=== PATIENT | female | born 1965 | race Caucasian/White ===

== ENCOUNTER 2021-01-25 13:56 | Emergency (ER) | payer OTHER, SELFPAY ==
--- NOTE | ~2021-01-25 | XR_ITS ---
EXAMINATION: XR shoulder LT min 2V DATE: 01/25/2021 14:39 INDICATION: Left shoulder pain. TECHNIQUE: 4 views of left shoulder were obtained. COMPARISON: None. FINDINGS: There is a comminuted fracture involving middle third of left clavicle. The main distal fra cture fragment demonstrates 27 degrees inferior angulation and 2 shaft widths inferior displacement. Coracoclavicular interval is normal. There is mild osteoarthritis of acromioclavicular joint and aaliyah ohumeral joint. IMPRESSION: 1. Comminuted fracture involving middle third of left clavicle. 2. Mild polyarticular osteoarthritis. Reviewed, dictated and finalized at location B.
[2021-01-25 14:21] VITALS: BP 141/106; PULSE 108; RESP 20; TEMP 36.1; O2SAT 100
--- NOTE | 2021-01-25 14:30 | ED.UPPEXIN ---
HPI - Extremity Injury (Upper) General Chief Complaint: Extremity Injury, Upper Stated Complaint: fall 1.5 weeks ago Time Seen by Provider: 01/25/21 14:30 Source: patient Mode of arrival: ambulatory Limitations: no limitations History of Present Illness HPI narrative: Patient is a 55-year-old female with a history of COPD who presents for evaluation of left clavicle pain following a fall. Patient states she tripped over a brick that was on a staircase, falling onto her side down 6 steps. Patient denies head trauma or loss of consciousness. Patient states injury happened several days ago and she has been afraid to come into the emergency department but due to the amount of pain in her left shoulder she wanted to see care. She reports a bump and bruising overlying the left collarbone. She denies shoulder pain, elbow pain or wrist pain. No numbness or tingling. No back pain or hip pain. Patient has been able to ambulate without difficulty. No vision changes, nausea or vomiting. Pain is dull, aching in nature, worse when she moves the left arm. Patient is right-hand dominant. Related Data Allergies Allergy/AdvReac Type Severity Reaction Status Date / Time No Known Allergies Allergy Unknown Unverified 12/05/16 13:19 Review of Systems Review of Systems: Narrative: CONSTITUTIONAL: Denies fever, chills, or sweats. EYES: Denies visual changes, redness, or discharge. ENT: Denies rhinorrhea, congestion, sore throat, or otalgia. CARDIOVASCULAR: Denies chest pain, palpitations, or edema. RESPIRATORY: Denies cough or dyspnea. GASTROINTESTINAL: Denies abdominal pain, nausea, vomiting, or diarrhea. GENITOURINARY: Denies dysuria or hematuria. SKIN: Denies rash or itching. MUSCULOSKELETAL: Denies back pain, reports left clavicle pain NEUROLOGIC: Denies headache, numbness, or weakness. PMFSH Social History Social History (Updated 01/25/21 @ 14:54 by Aslhey Orr MD) Smoking status: Current every day smoker Tobacco type: cigarettes Alcohol intake: former Substance use: current Substance use type: crack/cocaine and amphetamines Gender identity (if verbalized by the patient): Female Exam Narrative: Exam Narrative: Nursing note and vitals reviewed. CONSTITUTIONAL: The patient appears well-developed and well-nourished. No distress. HEAD: Normocephalic and atraumatic. EYES: 2+ PERRL, EOMI, normal conjunctiva, anicteric EARS: External ears clear bilaterally, no hemotympanum MOUTH: OP clear, no erythema, exudates NECK: midline trachea, supple, FROM. No midline cervical spinal tenderness. CARDIOVASCULAR: Tachycardic rate, regular rhythm, normal heart sounds and intact distal pulses. No murmurs, rubs, gallops. PULMONARY: Effort normal and breath sounds normal. No respiratory distress. The patient has no wheezes, rales, ronchi. No chest wall tenderness, crepitus or ecchymoses. ABDOMINAL: Soft. Nontender, nondistended. No palpable masses. Pelvis stable to anterior lateral compression. EXTREMITIES:: moving all extremities symmetrically. -RUE: No deformity. Normal ROM at shoulder, elbow, wrist, and hand. Sensation intact M/U/R. Pulse 2+. Radial pulse 2+. -LUE: No deformity. Normal ROM at elbow, wrist, and hand. Sensation intact M/U/R. Pulse 2+ radial pulse 2+. Intact sensation over the deltoid. Decreased ROM at left shoulder due to pain. No squaring off of the shoulder. -RLE: No deformity. Normal ROM at hip, knee, ankle. Sensation intact distally. -LLE: No deformity. Normal ROM at hip, knee, ankle. Sensation intact distally. NEUROLOGY: The patient is alert and oriented to person, place, and time. CN II-XII Course Vital Signs Vital signs: Vital Signs Temperature 36.1 C L 01/25/21 14:21 Pulse Rate 108 H 01/25/21 14:21 Respiratory Rate 20 01/25/21 14:21 Blood Pressure 141/106 H 01/25/21 14:21 Pulse Oximetry 100 01/25/21 14:21 Temperature 36.1 C L 01/25/21 14:21 Pulse Rate 108 H 01/25/21 14:21 Respiratory
[2021-01-25] MEDS: oxyCODONE/ACETAMINOPHEN (*CRX) 5-325 MG TABLET 1 TABLET PO (14:58)
[2021-01-25] MEDS: ONDANSETRON HCL ODT 4 MG TABLET PO (14:58)
== END 2021-01-25 15:16 | disposition home or self-care (01) ==
PROVIDERS: Emergency Provider Emergency Medicine
DX: S42.022A Displaced fracture of shaft of left clavicle, initial encounter for closed fracture (principal); F17.210 Nicotine dependence, cigarettes, uncomplicated; M19.012 Primary osteoarthritis, left shoulder; W10.9XXA Fall (on) (from) unspecified stairs and steps, initial encounter
CPT/HCPCS: 73030; 99284; A4565; A9270

== ENCOUNTER 2022-10-10 13:02 | Emergency (ER) | payer OTHER, SELFPAY ==
--- NOTE | ~2022-10-10 | XR_ITS ---
EXAMINATION: XR chest 2V DATE: 10/10/2022 13:34 INDICATION: Left chest pain. Shortness of breath. TECHNIQUE: Frontal and lateral views of the chest were obtained. COMPARISON: Chest 2 views 04/01/2008, CT abdomen 04/04/2008 FINDINGS: The chest demonstrates clear lungs without pneumonia, pleural effusion, or pneumothorax. Th e heart size is normal. There are prominent paracardial fat pads. There is an old healed fracture of left clavicle. IMPRESSION: 1. No acute cardiopulmonary disease. Reviewed, dictated and finalized at location A. [employer]
[2022-10-10 13:04] VITALS: BP 125/92; PULSE 103; RESP 18; TEMP 36.5; O2SAT 96
--- NOTE | 2022-10-10 13:04 | ECG_ITS ---
Measurements Intervals [place] Rate: 104 P: 38 [place]: 136 QRS: 20 QRSD: 88 T: 58 QT: 337 QTc: 445 Interpretive Statements SINUS TACHYCARDIA LOW VOLTAGE- LIMB LEADS BORDERLINE ECG NO PREVIOUS ECG AVAILABLE FOR COMPARISON Electronically Signed On 10-10-2022 14:51:24 [employer]US [employer]ING COORDINATOR by Sergio Loja D.O.
[2022-10-10 13:20] LABS: Basophils Absolute Auto 0.1 K/mm3 (0.0-0.1); Basophils Percent Auto 0.6 % (0.2-1.2); Eosinophils Absolute Auto 0.1 K/mm3 (0-0.3); Eosinophils Percent Auto 1.5 % (0-4.4); Hematocrit 40.5 % (37.0-47.0); Immature Granulocyte Absolute 0.03 K/mm3 (0.00-0.031); Immature Granulocyte Percent A 0.4 % (0-0.5); Lymphocytes Absolute Auto 2.24 K/mm3 (0.9-3.2); Lymphocytes Percent Auto 27.8 % (18.3-44.2); Mean Corpuscular HGB Conc 32.1 g/dl (32-36); Mean Corpuscular Hemoglobin 25.8 pg (26-34); Mean Corpuscular Volume 80.4 fl (80-100); Mean Platelet Volume 8.7 fl (7.4-10.4); Monocytes Absolute Auto 0.6 K/mm3 (0.1-0.6); Monocytes Percent Auto 7.9 % (2.6-8.5); Neutrophils Percent Auto 61.8 % (45.5-73.1); Platelet Count Result 375 k/mm3 (150-375); Red Blood Count 5.04 M/mm3 (4.2-5.4); White Blood Count 8.1 K/mm3 (4.5-10.0)
[2022-10-10 13:21] VITALS: O2SAT 98
[2022-10-10 13:22] VITALS: PULSE 102
[2022-10-10 13:23] VITALS: O2SAT 98
[2022-10-10 13:39] LABS: Alanine Aminotransferase 19 U/L (6-35); Albumin Level 3.8 g/dL (3.5-5.1); Alkaline Phosphatase 100 U/L (38-126); Anion Gap 6 mmol/L (8-16); Aspartate Amino Transferase 24 U/L (14-36); Bilirubin,Total 0.5 mg/dL (0.2-1.3); Blood Urea Nitrogen 18 mg/dL (7-17); Calcium 8.2 mg/dL (8.4-10.2); Carbon Dioxide 25 mmol/L (22-30); Chloride 106 mmol/L (98-107); Estimated Glomerular Filt Rate > 60; Glucose 105 mg/dL (65-110); Lipase 143 U/L (23-300); Potassium 4.6 mmol/L (3.4-5.0); Sodium 137 mmol/L (137-145)
[2022-10-10 13:42] LABS: INR 0.9
[2022-10-10 13:43] LABS: Partial Thromboplastin Time 27.9 SECONDS (22.3-36.8)
[2022-10-10 13:48] LABS: Troponin I < 0.012 ng/mL (0.000-0.034)
--- NOTE | 2022-10-10 14:16 | ED.GENADULT ---
HPI - General Adult General Chief complaint: Chest Pain Stated complaint: chest pain Time Seen by Provider: 10/10/22 13:33 History of Present Illness HPI narrative: 57-year-old female presenting to the emergency department for evaluation of some left-sided chest pain. Patient denies any prior history of coronary artery disease but does have a history of COPD. Patient states she has not felt well over the last few days and has had some increased diarrhea. Patient states this morning while she was at rest she had onset of left-sided chest pain that did radiate down her left arm. This started approximately 10 AM. Patient did call EMS for these symptoms and was treated with aspirin and nitro in route. Patient states that her pain was unchanged. Upon arrival to the emergency department patient states she does feel improved and states her pain is only a 2 out of 10. Patient denies any prior history of PE or DVT. Patient denies any recent long car rides or plane trips. Patient does have a prior history of ovarian cancer. Patient states that she is not on any hormone replacement. Patient states she is a current smoker. Related Data Allergies Allergy/AdvReac Type Severity Reaction Status Date / Time No Known Allergies Allergy Unknown Unverified 12/05/16 13:19 Review of Systems Review of Systems: CONSTITUTIONAL: Denies fever, chills, or sweats. EYES: Denies visual changes, redness, or discharge. ENT: Denies rhinorrhea, congestion, sore throat, or otalgia. CARDIOVASCULAR: See HPI RESPIRATORY: See HPI GASTROINTESTINAL: Denies abdominal pain, nausea, vomiting, or diarrhea. GENITOURINARY: Denies dysuria or hematuria. SKIN: Denies rash or itching. MUSCULOSKELETAL: Denies back pain, joint pain, or myalgia. NEUROLOGIC: Denies headache, numbness, or weakness. PMFSH Social History Social History (Updated 01/25/21 @ 14:54 by Ashley Orr MD) Smoking status: Current every day smoker Tobacco type: cigarettes Alcohol intake: former Substance use: current Substance use type: crack/cocaine and amphetamines Gender identity (if verbalized by the patient): Female Exam Narrative: APPEARANCE: Well appearing, no pain, no distress, well-nourished. HEAD: normocephalic, atraumatic. EYES: PERRLA/EOMI, conjunctivae clear. NOSE: Normal no drainage EARS:TMS clear with good light reflex. THROAT: Pharynx clear, no exudate. NECK: Supple. No adenopathy, no masses. RESPIRATORY: Airway patent, respirations nonlabored. Clear to auscultation bilaterally, no rales, rhonchi, wheezing. CARDIOVASCULAR: Regular rate and rhythm without murmurs rubs or gallops. ABDOMINAL: Soft, nontender, nondistended, normal bowel sounds MUSCULOSKELETAL: Moves all extremities. Strength/ROM intact, No edema, No calf tenderness. NEURO: Alert. Cranial nerves II through XII intact. Grossly intact SKIN: Warm, dry. Normal Color Course Course Emergency Course: Patient's initial EKG showed some mild tachycardia but no evidence of acute STEMI. Patient distal troponin was negative. Patient does have pleuritic left-sided chest pain with differential including ACS, PE, pneumonia or pneumothorax. X-ray showed no acute cardiopulmonary normality. Patient's EKG showed normal sinus rhythm. Patient's D-dimer was negative. Patient had negative serial troponins. Patient does feel improved at this time. Patient's heart score is low enough that she can be discharged to home with outpatient cardiac follow-up. Patient was comfortable with this plan. All question concerns were addressed. Vital Signs Vital signs: Vital Signs Temperature 97.7 F 10/10/22 13:04 Pulse Rate 103 H 10/10/22 13:04 Respiratory Rate 18 10/10/22 13:04 Blood Pressure 125/92 H 10/10/22 13:04 Pulse Oximetry 96 10/10/22 13:04 Oxygen Delivery Room Air 10/10/22 13:04 Temperature 97.7 F 10/10/22 13:04 Pulse Rate 91 10/10/22 16:28 Respiratory Rate 15 10/10/22 16:28 Blood Pressure
[2022-10-10 14:48] VITALS: BP 130/85; PULSE 94; RESP 18; O2SAT 98
[2022-10-10 15:03] LABS: Influenza A QL RT-PCR Negative (Negative); Influenza B QL RT-PCR Negative (Negative); RSV RNA, RT-PCR Negative (Negative); SARS-CoV-2 RNA PCR Negative
[2022-10-10 16:28] VITALS: BP 134/85; PULSE 91; RESP 15; O2SAT 98
[2022-10-10 16:59] LABS: Troponin I < 0.012 ng/mL (0.000-0.034)
== END 2022-10-10 17:30 | disposition home or self-care (01) ==
PROVIDERS: Emergency Provider Emergency Medicine
DX: R07.9 Chest pain, unspecified (principal); J44.9 Chronic obstructive pulmonary disease, unspecified; F17.210 Nicotine dependence, cigarettes, uncomplicated; F14.90 Cocaine use, unspecified, uncomplicated; F15.90 Other stimulant use, unspecified, uncomplicated; Z20.822 Contact with and (suspected) exposure to COVID-19
CPT/HCPCS: 36415; 71046; 80053; 83690; 84484; 85025; 85380; 85610; 85730; 87637; 93005; 99284

== ENCOUNTER 2022-12-29 21:16 | Emergency (ER) | payer OTHER, SELFPAY ==
--- NOTE | 2022-12-29 21:22 | PC.NURSE ---
Pt pulled back for triage, RN in process of checking pts vitals pts pulse oxygen 100% heart rate 98 pt removed blood pressure cuff and states I don't want to wait in the ER, I will go to urgent care tomorrow.
== END 2022-12-29 21:47 | disposition left against medical advice (07) ==
DX: Z53.21 Procedure and treatment not carried out due to patient leaving prior to being seen by health care provider (principal)
CPT/HCPCS: 99199

== ENCOUNTER 2023-01-02 12:14 | Observation (INO) | payer OTHER, SELFPAY ==
[2023-01-02] VITALS (21 sets, daily range): BP systolic 145–179; BP diastolic 70–98; PULSE 80–104; RESP 12–28; TEMP 36.3–36.7; O2SAT 94–100; BMI 37.3
--- NOTE | ~2023-01-02 | XR_ITS ---
Clinical Indication: Shortness of breath PA and lateral views of the chest: Comparison: 10/10/2022 Findings: The lungs are clear, without evidence of focal consolidation or pleural effusion. Cardiome diastinal silhouette is within normal limits. Bones and soft tissues are unremarkable. Impression: Normal chest. Reviewed, dictated and finalized at location . Impression: Normal chest.
--- NOTE | 2023-01-02 12:26 | ECG_ITS ---
Measurements Intervals [place] Rate: 88 P: 46 [place]: 171 QRS: 10 QRSD: 89 T: 47 QT: 362 QTc: 438 Interpretive Statements SINUS RHYTHM BASELINE ARTIFACT- I, III, AVL NORMAL ECG COMPARED TO ECG 10/10/2022 13:08:10 SINUS RHYTHM NOW PRESENT Electronically Signed On 01-02-2023 12:55:54 CDT by Sergio Loja D.O.
--- NOTE | 2023-01-02 12:50 | ED.SOB ---
HPI - SOB/Dyspnea General Chief Complaint: Shortness of Breath/Dyspnea Stated Complaint: sob/cough Time Seen by Provider: 01/02/23 12:21 Source: RN notes reviewed History of Present Illness HPI Narrative: Patient presents emergency department from home via EMS for shortness of breath. Patient states she has a history of COPD has been feeling more short of breath for the past 5 days. States she had a cough this been nonproductive states he is also had diffuse wheezing. Patient states she does still smoke cigarettes. She denies any fevers or chills chest pain abdominal pain nausea vomiting or any other symptoms. States she has been using her medications at home with minimal relief Related Data Home Medications Medication Instructions Recorded Confirmed albuterol sulfate 90 mcg/actuation inhalation 01/02/23 aerosol inhaler cholecalciferol (vitamin D3) 25 25 mcg PO DAILY 01/02/23 mcg (1,000 unit) tablet cholecalciferol (vitamin D3) 50 100 mcg PO DAILY 01/02/23 mcg (2,000 unit) tablet famotidine 20 mg tablet mg 01/02/23 hydroxyzine pamoate 50 mg capsule mg 01/02/23 ondansetron 4 mg disintegrating mg 01/02/23 tablet prednisone 20 mg tablet mg 01/02/23 tiotropium bromide 18 mcg capsule inhalation 01/02/23 with inhalation device (Spiriva with HandiHaler) tizanidine 4 mg tablet mg 01/02/23 Allergies Allergy/AdvReac Type Severity Reaction Status Date / Time No Known Allergies Allergy Unknown Verified 01/02/23 12:50 Review of Systems Review of Systems: Gen.: Denies fevers or chills ENT: Denies congestion Respiratory: See HPI CV: Denies chest pain or palpitations GI: Denies abdominal pain nausea, emesis or diarrhea Musculoskeletal: Denies back pain or muscle pain Neuro: Denies numbness, tingling, weakness or focal weakness Skin: Denies rash Except as documented, all other systems reviewed and negative [facility] Past Medical History Medical History (Updated 01/02/23 @ 14:40 by Taras Avila DO) COPD (chronic obstructive pulmonary disease) Social History Social History Smoking status: Current every day smoker Tobacco type: cigarettes Alcohol intake: former Substance use: current Substance use type: crack/cocaine and amphetamines Gender identity (if verbalized by the patient): Female Exam Narrative: APPEARANCE: No acute distress, nontoxic, resting in bed EYES: EOMI HEENT: Normocephalic, atraumatic, OMM erythema exudate posterior pharynx RESPIRATORY: No respiratory distress wheezing throughout the bilateral lung robles with decreased breath sounds in the bases no rhonchi CARDIOVASCULAR: Regular rate and rhythm without murmurs rubs or gallops. ABDOMINAL: Soft, nontender, nondistended, no rebound or guarding MUSCULOSKELETAl: Moves all extremities. No clubbing, cyanosis or edema. NEURO: Awake and alert. Following commands, speech normal, no focal deficits SKIN:: Warm, dry. No rashes lesions or abrasions PSYCHIATRIC: Normal affect/mood, Course Course Emergency Course: Patient given breathing treatments in the emergency department repeat lung exam shows diffuse wheezing throughout the bilateral lung robles with decreased breath sounds in bases will admit for IV steroids and breathing treatments Discussed with NI Norris for Dr. Daniel for hospitalist service agrees with admission Discussed with patient and family results of workup and diagnosis. Discussed need for admission. Patient and family understand and agree to current treatment plan Vital Signs Vital signs: Vital Signs Temperature 98.1 F 01/02/23 12:17 Pulse Rate 90 01/02/23 12:17 Respiratory Rate 24 H 01/02/23 12:17 Blood Pressure 147/83 H 01/02/23 12:17 Pulse Oximetry 96 01/02/23 12:17 Oxygen Delivery Room Air 01/02/23 12:17 Temperature 98.1 F 01/02/23 12:17 Pulse Rate 91 01/02/23 14:21 Respiratory Rate 17 01/02/23 14:21 Bloo
[2023-01-02 13:16] LABS: Basophils Percent Auto 0.4 % (0.2-1.2); Eosinophils Absolute Auto 0.1 K/mm3 (0-0.3); Eosinophils Percent Auto 1.3 % (0-4.4); Hematocrit 35.2 % (37.0-47.0); Immature Granulocyte Absolute 0.02 K/mm3 (0.00-0.031); Immature Granulocyte Percent A 0.3 % (0-0.5); Lymphocytes Absolute Auto 1.37 K/mm3 (0.9-3.2); Lymphocytes Percent Auto 18.3 % (18.3-44.2); Mean Corpuscular HGB Conc 31.3 g/dl (32-36); Mean Corpuscular Hemoglobin 25.6 pg (26-34); Mean Corpuscular Volume 81.9 fl (80-100); Mean Platelet Volume 8.2 fl (7.4-10.4); Monocytes Absolute Auto 0.5 K/mm3 (0.1-0.6); Monocytes Percent Auto 6.4 % (2.6-8.5); Neutrophils Absolute Auto 5.5 K/mm3 (1.3-6.7); Neutrophils Percent Auto 73.3 % (45.5-73.1); Platelet Count Result 382 k/mm3 (150-375); Red Cell Distribution Width 14.3 % (11.5-14.5); White Blood Count 7.5 K/mm3 (4.5-10.0)
[2023-01-02] MEDS: methylPREDNISolone SOD SUCC 125 MG VIAL IV PUSH (13:16)
[2023-01-02] MEDS: IPRATROPIUM BR 0.02% INH SOLN 0.5 MG/2.5 ML VIAL INHALATION ×3 (13:23→20:27)
[2023-01-02] MEDS: ALBUTEROL SULFATE NEB 2.5 MG/3 ML INH INHALATION ×2 (13:23→14:05)
[2023-01-02 13:29] LABS: Alanine Aminotransferase 19 U/L (6-35); Albumin Level 3.9 g/dL (3.5-5.1); Alkaline Phosphatase 96 U/L (38-126); Anion Gap 9 mmol/L (8-16); Aspartate Amino Transferase 20 U/L (14-36); Bilirubin,Total 0.3 mg/dL (0.2-1.3); Blood Urea Nitrogen 14 mg/dL (7-17); Calcium 8.8 mg/dL (8.4-10.2); Carbon Dioxide 26 mmol/L (22-30); Chloride 99 mmol/L (98-107); Estimated CRCL calculation 75 ml/min; Estimated Glomerular Filt Rate > 60; Glucose 114 mg/dL (65-110); Potassium 3.8 mmol/L (3.4-5.0); Sodium 134 mmol/L (137-145)
[2023-01-02 14:05] LABS: Influenza A QL RT-PCR Negative (Negative); Influenza B QL RT-PCR Negative (Negative); RSV RNA, RT-PCR Negative (Negative); SARS-CoV-2 RNA PCR Negative
[2023-01-02] MEDS: NICOTINE (*PBKC) 21 MG PATCH 1 PATCH TRANSDERM (16:58)
--- NOTE | 2023-01-02 18:00 | PM.IMHP ---
H&P: HPI History of Present Illness Date/Time: 01/02/23 18:00 Chief Complaint: Shortness of breath. Narrative: This is a 57-year-old female smoker with COPD who presented to the emergency department via EMS from [facility] for evaluation of shortness of breath. Patient provides the following history. She has chronic dyspnea at baseline, even when up and about in her apartment. Over the last couple of weeks however she has had progressive dyspnea on lesser and lesser exertion and endorses significant wheezing. At the onset of her symptoms she had a cough productive of thick green sputum but that has dried up when she started taking prednisone and a cough suppressant. She endorses chills but denies fever and sweats. She has had some sinus congestion and sore throat. She had COVID several months ago and has no known recent contacts. She has some mild chest tightness when her shortness of breath is especially bad but that improved with albuterol. She has not had exertional chest pain or pleuritic pain. Vital signs were stable on arrival to ED. she was negative for influenza, RSV, and COVID. Chest x-ray showed normal chest. She was given a dose of Solu-Medrol and a nebulizer treatment with some improvement though due to ongoing shortness of breath and wheezing she is being admitted for further treatment for a COPD exacerbation. Review of Systems Review of Systems: Twelve systems were reviewed and are negative except for as per HPI. [facility] Past Medical History Medical History (Updated 01/04/23 @ 13:57 by Myrna Alberts PA-C) Anxiety Bipolar disorder Chronic obstructive pulmonary disease Depression Diverticulitis Fibromyalgia Spinal stenosis Tobacco dependence Surgical History Surgical History (Updated 01/04/23 @ 13:57 by Myrna Alberts PA-C) History of ankle surgery History of partial hysterectomy Family History Family History Father Acute myocardial infarction Congestive heart failure Hypertension Prostate carcinoma Sibling Chronic obstructive pulmonary disease Cerebrovascular accident Social History Social History (Updated 01/04/23 @ 13:57 by Myrna Alberts PA-C) Social History: Surrogate medical decision maker: Charito Fish, daughter. Code status: Full code. Smoking status: Current some day smoker Tobacco type: cigarettes Alcohol intake: never Substance use: never Substance use type: crack/cocaine and amphetamines Lack of Transportation: No Lack of Food: Never True Current Housing: I Have Housing Concerned About Future Housing: No Difficulty Paying Gas/Electric Bills: No Difficulty Paying for Meds: No Currently Unemployed: No Education: High School Diploma/GED Difficulty w/ Childcare or Family Care: No Spiritual care concerns: No Meds Home Medications and Allergies Home Medications Medication Instructions Recorded Confirmed Type albuterol sulfate 90 mcg/actuation 2 puff inhalation Q4H PRN 01/02/23 01/02/23 History aerosol inhaler Shortness Of Breath Or Wheezing cholecalciferol (vitamin D3) 25 25 mcg PO DAILY 01/02/23 01/02/23 History mcg (1,000 unit) tablet cholecalciferol (vitamin D3) 50 100 mcg PO DAILY 01/02/23 01/02/23 History mcg (2,000 unit) tablet famotidine 20 mg tablet 20 mg PO BID 01/02/23 01/02/23 History guaifenesin 100 mg/5 mL oral 200 mg PO Q4H PRN Cough 01/02/23 01/02/23 History liquid (Robafen) ondansetron 4 mg disintegrating 4 mg PO Q6H PRN Nausea And Vomiting 01/02/23 01/02/23 History tablet tiotropium bromide 18 mcg capsule 1 cap inhalation DAILY 01/02/23 01/02/23 History with inhalation device (Spiriva with HandiHaler) tizanidine 4 mg tablet 4 mg PO Q8H PRN Muscle Spasm 01/02/23 01/02/23 History budesonide-formoterol HFA 160 1 puff inhalation DAILY 01/03/23 01/03/23 History mcg-4.5 mcg/actuation aerosol inhaler (Symbicort) dul
--- NOTE | 2023-01-02 19:10 | PC.NURSE ---
REPORT TO WARREN LANDAVERDE. CARE TRANSFERRED. PT STILL AWAITING AN ADMISSION BED.
--- NOTE | 2023-01-02 19:56 | ADMGEN ---
This patient, Nohelia Cyr, was admitted to Medical Room 254-01. Patient/family oriented to hospital policies and general routines including ID bracelet, bed and alarms, visiting hours, pain management, procedures, bathroom and other care routines, personal items, smoking policy, room service/diet, and visiting hours. Information on how to activate the Rapid Response Team has been discussed. Patient/Family are encouraged to report perceived risks to care and to ask questions if they do not understand what they are told or what they should do.
[2023-01-02] MEDS: LEVALBUTEROL NEB 1.25 MG/3 ML 0.63 MG INHALATION ×2 (20:27→20:31)
[2023-01-02] MEDS: methylPREDNISolone SOD SUCC 125 MG VIAL 60 MG IV PUSH (21:28)
[2023-01-02] MEDS: AZITHROMYCIN 250 MG TABLET 500 MG PO (23:58)
[2023-01-03] VITALS (11 sets, daily range): BP systolic 138–151; BP diastolic 78–96; PULSE 95–112; RESP 18–22; TEMP 36.4–36.9; O2SAT 94–97
[2023-01-03] MEDS: LEVALBUTEROL NEB 1.25 MG/3 ML 0.63 MG INHALATION ×4 (03:05→20:33)
[2023-01-03] MEDS: IPRATROPIUM BR 0.02% INH SOLN 0.5 MG/2.5 ML VIAL INHALATION (03:06)
[2023-01-03] MEDS: TIZANIDINE HCL 4 MG TABLET PO ×3 (04:00→20:12)
[2023-01-03 06:02] LABS: Basophils Percent Auto 0.1 % (0.2-1.2); Hemoglobin 11.5 g/dL (12.0-15.0); Immature Granulocyte Absolute 0.08 K/mm3 (0.00-0.031); Immature Granulocyte Percent A 0.8 % (0-0.5); Lymphocytes Absolute Auto 0.48 K/mm3 (0.9-3.2); Lymphocytes Percent Auto 4.9 % (18.3-44.2); Mean Corpuscular HGB Conc 31.1 g/dl (32-36); Mean Corpuscular Hemoglobin 25.6 pg (26-34); Mean Corpuscular Volume 82.4 fl (80-100); Mean Platelet Volume 8.2 fl (7.4-10.4); Monocytes Absolute Auto 0.1 K/mm3 (0.1-0.6); Monocytes Percent Auto 1.2 % (2.6-8.5); Neutrophils Absolute Auto 9.1 K/mm3 (1.3-6.7); Platelet Count Result 429 k/mm3 (150-375); Red Blood Count 4.49 M/mm3 (4.2-5.4); Red Cell Distribution Width 14.1 % (11.5-14.5); White Blood Count 9.8 K/mm3 (4.5-10.0)
[2023-01-03 06:14] LABS: Alanine Aminotransferase 19 U/L (6-35); Albumin Level 4.1 g/dL (3.5-5.1); Alkaline Phosphatase 101 U/L (38-126); Anion Gap 4 mmol/L (8-16); Aspartate Amino Transferase 21 U/L (14-36); Bilirubin,Total 0.4 mg/dL (0.2-1.3); Blood Urea Nitrogen 15 mg/dL (7-17); Calcium 9.2 mg/dL (8.4-10.2); Carbon Dioxide 29 mmol/L (22-30); Chloride 101 mmol/L (98-107); Estimated CRCL calculation 98 ml/min; Estimated Glomerular Filt Rate > 60; Glucose 144 mg/dL (65-110); Magnesium 2.3 mg/dL (1.6-2.3); Potassium 4.4 mmol/L (3.4-5.0); Sodium 134 mmol/L (137-145)
[2023-01-03] MEDS: methylPREDNISolone SOD SUCC 125 MG VIAL 60 MG IV PUSH (06:24)
[2023-01-03] MEDS: FLUTICASONE/SALMETEROL 115-21 MCG INHALER 1 PUFF 2 PUFF INHALATION ×2 (07:20→20:34)
[2023-01-03] MEDS: ACETAMINOPHEN 325 MG TABLET 650 MG PO ×2 (07:47)
[2023-01-03] MEDS: CHOLECALCIFEROL 1,000 UNITS TABLET 2000 UNITS PO (07:48)
[2023-01-03] MEDS: guaiFENesin 12 HR 600 MG TABCR PO ×2 (07:50→20:12)
[2023-01-03] MEDS: AZITHROMYCIN 250 MG TABLET PO (07:50)
[2023-01-03] MEDS: FAMOTIDINE 20 MG TABLET PO ×2 (07:50→17:04)
--- NOTE | 2023-01-03 12:30 | PM.IMPN ---
Progress Note: A&P Assessment and Plan (1) Acute exacerbation of chronic obstructive pulmonary disease: Code(s): J44.1 - Chronic obstructive pulmonary disease with (acute) exacerbation Status: Acute Assessment and Plan: Presented with complaints of progressive shortness of breath Chest xray shows normal chest WBCs stable at 7.8 Continue home advair, and PRN Xopenex Continue azithromycin for now Decrease steroids to 40mg PO daily Sputum culture (2) Tobacco dependence: Code(s): F17.200 - Nicotine dependence, unspecified, uncomplicated Status: Acute Assessment and Plan: Smoking cessation is encouraged and was discussed. Nicotine patch ordered per patient request Continue with smoking cessation counselling Time Spent With Patient Time: 48 minutes Time with patient: Greater than 35 minutes Subjective Date/time seen: 01/03/23 1230 Interval history: 01/03/231229 Patient was sitting up in bed eating chicken tenders and ran stressing. Patient stated that she was feeling much better today however she was still very weak. She also stated that she has a cough with wheezes. She feels congested especially in her head and ears and thinks that her sinuses are pretty congested. She denies any current nausea, vomiting, diarrhea or constipation. 01/02/23? 18:00 This is a 57-year-old female smoker with COPD who presented to the emergency department via EMS from [facility] for evaluation of shortness of breath. Patient provides the following history. She has chronic dyspnea at baseline, even when up and about in her apartment. Over the last couple of weeks however she has had progressive dyspnea on lesser and lesser exertion and endorses significant wheezing. At the onset of her symptoms she had a cough productive of thick green sputum but that has dried up when she started taking prednisone and a cough suppressant. She endorses chills but denies fever and sweats. She has had some sinus congestion and sore throat. She had COVID several months ago and has no known recent contacts. She has some mild chest tightness when her shortness of breath is especially bad but that improved with albuterol. She has not had exertional chest pain or pleuritic pain. Vital signs were stable on arrival to ED. she was negative for influenza, RSV, and COVID. Chest x-ray showed normal chest. She was given a dose of Solu-Medrol and a nebulizer treatment with some improvement though due to ongoing shortness of breath and wheezing she is being admitted for further treatment for a COPD exacerbation. Review of Systems Review of Systems: All systems reviewed & are unremarkable except as noted in HPI and below Exam Narrative: General: well-nourished, well-appearing 57-year-old female, sitting up in bed, comfortable, NARD Neuro: awake, alert and oriented x4, speech clear, no focal neuro deficits noted HEENMT: normocephalic, atraumatic, EOMI, sclerae anicteric, moist oral mucosa Respiratory: Clear to auscultation bilaterally without crackles, rhonchi or wheezes, nonlabored breathing Cardio: regular rate, regular rhythm with S1-S2 Abdomen: nondistended, normoactive bowel sounds, soft, nontender to palpation Extremities: no edema, erythema, or tenderness to palpation, DP pulses 2+ bilaterally Skin: no rashes or lesions, warm and dry Psych: appropriate mood and affect, judgment and insight intact Objective Data Vital Signs Vital Signs: Vital Signs - 24 hr 01/02/23 12:17 01/02/23 13:24 01/02/23 14:05 Temperature 98.1 F Pulse Rate 90 85 87 Respiratory Rate 24 H 13 14 Blood Pressure 147/83 H Pulse Oximetry 96 Oxygen Delivery Room Air 01/02/23 14:21 01/02/23 12:26 01/02/23 12:46 Temperature Pulse Rate 91 91 91 Respiratory Rate 17 21 H 13 Blood Pressure 147/83 H 146/81 H Pulse Oximetry 97 95 Oxygen Delivery 01/02/23 13:01 01/02/23 13:35 01/02/23 14:02 Temp
[2023-01-03] MEDS: guaiFENesin 200 MG/10 ML UDC PO ×2 (12:52→22:01)
[2023-01-03] MEDS: predniSONE 20 MG TABLET 40 MG PO (12:53)
[2023-01-03] MEDS: NICOTINE (*PBKC) 21 MG PATCH 1 PATCH TRANSDERM (13:13)
[2023-01-03] MEDS: LORATADINE/PSEUDOEPHEDRINE (*CRX) 10/240 MG TABLET ER 24 HR 1 TAB PO (17:04)
[2023-01-04] VITALS (7 sets, daily range): BP systolic 126–151; BP diastolic 81–94; PULSE 91–107; RESP 18–20; TEMP 36.4–37.1; O2SAT 97–100
[2023-01-04 05:08] LABS: Basophils Percent Auto 0.1 % (0.2-1.2); Hematocrit 35.8 % (37.0-47.0); Hemoglobin 11.1 g/dL (12.0-15.0); Immature Granulocyte Absolute 0.15 K/mm3 (0.00-0.031); Lymphocytes Absolute Auto 1.02 K/mm3 (0.9-3.2); Lymphocytes Percent Auto 6.8 % (18.3-44.2); Mean Corpuscular Hemoglobin 25.5 pg (26-34); Mean Corpuscular Volume 82.1 fl (80-100); Mean Platelet Volume 8.3 fl (7.4-10.4); Monocytes Absolute Auto 0.9 K/mm3 (0.1-0.6); Monocytes Percent Auto 5.8 % (2.6-8.5); Neutrophils Absolute Auto 12.9 K/mm3 (1.3-6.7); Neutrophils Percent Auto 86.3 % (45.5-73.1); Platelet Count Result 399 k/mm3 (150-375); Red Blood Count 4.36 M/mm3 (4.2-5.4); Red Cell Distribution Width 14.1 % (11.5-14.5)
[2023-01-04 05:14] LABS: Alanine Aminotransferase 17 U/L (6-35); Albumin Level 3.8 g/dL (3.5-5.1); Alkaline Phosphatase 80 U/L (38-126); Anion Gap 5 mmol/L (8-16); Aspartate Amino Transferase 17 U/L (14-36); Bilirubin,Total 0.3 mg/dL (0.2-1.3); Blood Urea Nitrogen 19 mg/dL (7-17); Calcium 8.6 mg/dL (8.4-10.2); Carbon Dioxide 28 mmol/L (22-30); Chloride 103 mmol/L (98-107); Estimated CRCL calculation 85 ml/min; Estimated Glomerular Filt Rate > 60; Glucose 115 mg/dL (65-110); Magnesium 2.5 mg/dL (1.6-2.3); Potassium 4.5 mmol/L (3.4-5.0); Sodium 136 mmol/L (137-145)
[2023-01-04] MEDS: FLUTICASONE/SALMETEROL 115-21 MCG INHALER 1 PUFF 2 PUFF INHALATION (07:46)
[2023-01-04] MEDS: LEVALBUTEROL NEB 1.25 MG/3 ML 0.63 MG INHALATION ×2 (07:46→13:44)
[2023-01-04] MEDS: predniSONE 20 MG TABLET 40 MG PO (08:17)
[2023-01-04] MEDS: CHOLECALCIFEROL 1,000 UNITS TABLET 2000 UNITS PO (08:18)
[2023-01-04] MEDS: DULoxetine HCL 60 MG CAPSULE.DR PO (08:18)
[2023-01-04] MEDS: AZITHROMYCIN 250 MG TABLET PO (08:18)
[2023-01-04] MEDS: FOLIC ACID 1 MG TABLET PO (08:19)
[2023-01-04] MEDS: guaiFENesin 12 HR 600 MG TABCR PO (08:19)
[2023-01-04] MEDS: ACETAMINOPHEN 325 MG TABLET 650 MG PO (08:20)
[2023-01-04] MEDS: FAMOTIDINE 20 MG TABLET PO (08:23)
[2023-01-04] MEDS: LORATADINE/PSEUDOEPHEDRINE (*CRX) 10/240 MG TABLET ER 24 HR 1 TAB PO (08:23)
[2023-01-04] MEDS: NICOTINE (*PBKC) 21 MG PATCH 1 PATCH TRANSDERM (14:13)
[2023-01-04] MEDS: guaiFENesin 200 MG/10 ML UDC PO (14:14)
--- NOTE | 2023-01-04 14:14 | PM.DS ---
DS: Admitting Diagnosis Discharge Date 01/04/2023 Admitting Diagnosis COPD exacerbation DS: Discharge Diagnosis Discharge Diagnosis (1) Acute exacerbation of chronic obstructive pulmonary disease: Code(s): J44.1 - Chronic obstructive pulmonary disease with (acute) exacerbation Status: Acute Assessment and Plan: Likely precipitated by viral URI. patient received scheduled bronchodilators and IV Solu-Medrol during admission. She was started on azithromycin given sputum changes. She had no oxygen requirement. She was able to transition to p.o. prednisone which she will continue as an outpatient to complete 5 days. She will also continue azithromycin as an outpatient to complete a 5 day course. Overall had symptomatic improvement. Continue maintenance inhalers. patient was referred to outpatient pulmonology for continued treatment of COPD (2) Tobacco dependence: Code(s): F17.200 - Nicotine dependence, unspecified, uncomplicated Status: Acute Assessment and Plan: nicotine patch provided during admission. Patient was educated on smoking cessation. DS: Summary Hospital Course Hospital Course: date of admission: 01/02/2023 date of discharge: 01/04/2023 Nohelia Cyr is a 57-year-old female with a history of bipolar disorder, anxiety, COPD, fibromyalgia, and tobacco dependence who presented to the emergency department on 01/02/2023 with complaints of worsened shortness of breath ongoing for 5 days, cough, and wheezing. On presentation to the ED, she was mildly tachypneic with additional vital signs stable, laboratory workup unremarkable, COVID influenza negative, and CXR no acute findings. She was admitted to the hospitalist service for further evaluation and management. please see above for further details. She had symptomatic improvement following scheduled bronchodilators, steroids, and antibiotics. Wheezing improved. Patient had no oxygen requirement. She will continue with p.o. prednisone as an outpatient to complete 5 days. She has been referred to pulmonology and can follow-up as an outpatient. Overall patient feeling improved, nearly back to baseline and felt comfortable with plans for discharge back to her assisted living facility. Patient was educated on smoking cessation. She was discharged in hemodynamically stable condition on 01/04/2023. Time Spent with Patient Time attestation: Total time spent providing and/or coordinating discharge services: 40 minutes Exam Narrative: General: will appearing 57-year-old female, sitting up in bed, comfortable, NARD Neuro: awake, alert and oriented x4, speech clear, no focal neuro deficits noted HEENMT: normocephalic, atraumatic, EOMI, sclerae anicteric, moist oral mucosa Respiratory: clear to auscultation bilaterally, nonlabored breathing Cardio: regular rate, regular rhythm with S1-S2 Abdomen: nondistended, normoactive bowel sounds, soft, nontender to palpation Extremities: no edema, erythema, or tenderness to palpation Skin: no rashes or lesions, warm and dry Psych: appropriate mood and affect, judgment and insight intact DS: Data Data Completed and Pending Labs on day of discharge: Labs from last 24 hours 01/04/23 01/04/23 04:45 04:45 WBC 15.0 H RBC 4.36 Hgb 11.1 L Hct 35.8 L MCV 82.1 MCH 25.5 L MCHC 31.0 L RDW 14.1 Plt Count 399 H MPV 8.3 Immature Gran % (Auto) 1.0 H Neut % (Auto) 86.3 H Lymph % (Auto) 6.8 L Taney % (Auto) 5.8 Eos % (Auto) 0.0 Baso % (Auto) 0.1 L Lymph # (Auto) 1.02 Taney # (Auto) 0.9 H Eos # (Auto) 0.0 Baso # (Auto) 0.0 Abs Immat Gran (auto) 0.15 H Absolute Neuts (auto) 12.9 H Absolute Nucleated RBC 0.0 Nucleated RBC % 0.0 Sodium 136 L Potassium 4.5 Chloride 103 Carbon Dioxide 28 Anion Gap 5 L BUN 19 H Creatinine 0.70 Estim Creat Clear Calc 85 Estimated GFR > 60 Glucose 115 H Calcium 8.6 Magnesium 2
== END 2023-01-04 16:40 ==
LOC: ANHED 14:40 → ANH2MED 20:58 → ANH3MEDSUR 01-05 13:59
PROVIDERS: Nurse Practitioner; Admitting Provider Internal Medicine; Emergency Provider Emergency Medicine; Visit Provider Physician Assistant
DX: J44.1 Chronic obstructive pulmonary disease with (acute) exacerbation (principal); F17.210 Nicotine dependence, cigarettes, uncomplicated; F14.90 Cocaine use, unspecified, uncomplicated; F15.90 Other stimulant use, unspecified, uncomplicated; Z20.822 Contact with and (suspected) exposure to COVID-19; F41.9 Anxiety disorder, unspecified; F31.9 Bipolar disorder, unspecified; M79.7 Fibromyalgia; M48.00 Spinal stenosis, site unspecified; Z79.51 Long term (current) use of inhaled steroids; Z79.52 Long term (current) use of systemic steroids; Z79.899 Other long term (current) drug therapy; Z83.6 Family history of other diseases of the respiratory system
CPT/HCPCS: 36415; 71046; 80053; 83735; 85025; 87637; 93005; 94640; 96374; 96376; 97165; 99285; A9270; G0378; G0379; J2930; J7512

== ENCOUNTER 2023-05-27 12:24 | Emergency (ER) | payer OTHER, SELFPAY ==
[2023-05-27] VITALS (24 sets, daily range): BP systolic 100–142; BP diastolic 79–98; PULSE 79–92; RESP 8–24; TEMP 36.9; O2SAT 92–100
--- NOTE | ~2023-05-27 | XR_ITS ---
EXAMINATION: XR chest 2V DATE: 05/27/2023 13:24 INDICATION: Right chest pain. Shortness of breath. TECHNIQUE: Frontal and lateral views of the chest were obtained. COMPARISON: Chest 2 views 01/02/2023 FINDINGS: There is no pneumonia, pleural effusion, or pneumothorax. The heart size is normal. There a re prominent paracardial fat pads. IMPRESSION: 1. No acute cardiopulmonary disease. Reviewed, dictated and finalized at location A.
--- NOTE | 2023-05-27 12:46 | ECG_ITS ---
Measurements Intervals [place] Rate: 84 P: 49 NM: 184 QRS: 11 QRSD: 93 T: 42 QT: 368 QTc: 436 Interpretive Statements SINUS RHYTHM LOW QRS VOLTAGE IN PRECORDIAL LEADS [QRS DEFLECTION < 1.0 mV IN CHEST LEADS] OTHERWISE UNREMARKABLE OR ECHOCARDIOGRAM COMPARED TO ECG 01/02/2023 12:31:32 NO SIGNIFICANT CHANGES Electronically Signed On 05-28-2023 7:08:09 CDT by Sudeep Porras M.D.
[2023-05-27 13:04] LABS: Basophils Percent Auto 0.6 % (0.2-1.2); Eosinophils Absolute Auto 0.2 K/mm3 (0-0.3); Eosinophils Percent Auto 3.1 % (0-4.4); Hematocrit 35.7 % (37.0-47.0); Immature Granulocyte Absolute 0.02 K/mm3 (0.00-0.031); Immature Granulocyte Percent A 0.3 % (0-0.5); Lymphocytes Absolute Auto 1.96 K/mm3 (0.9-3.2); Lymphocytes Percent Auto 28.8 % (18.3-44.2); Mean Corpuscular HGB Conc 30.8 g/dl (32-36); Mean Corpuscular Hemoglobin 25.4 pg (26-34); Mean Corpuscular Volume 82.4 fl (80-100); Mean Platelet Volume 8.9 fl (7.4-10.4); Monocytes Absolute Auto 0.7 K/mm3 (0.1-0.6); Monocytes Percent Auto 9.7 % (2.6-8.5); Neutrophils Absolute Auto 3.9 K/mm3 (1.3-6.7); Neutrophils Percent Auto 57.5 % (45.5-73.1); Platelet Count Result 330 k/mm3 (150-375); Red Blood Count 4.33 M/mm3 (4.2-5.4); Red Cell Distribution Width 13.3 % (11.5-14.5); White Blood Count 6.8 K/mm3 (4.5-10.0)
[2023-05-27 13:17] LABS: Alanine Aminotransferase 18 U/L (6-35); Albumin Level 3.9 g/dL (3.5-5.1); Alkaline Phosphatase 104 U/L (38-126); Anion Gap 6 mmol/L (8-16); Aspartate Amino Transferase 22 U/L (14-36); Bilirubin,Total 0.2 mg/dL (0.2-1.3); Blood Urea Nitrogen 13 mg/dL (7-17); Calcium 8.5 mg/dL (8.4-10.2); Carbon Dioxide 27 mmol/L (22-30); Chloride 101 mmol/L (98-107); Estimated CRCL calculation 62 ml/min; Estimated Glomerular Filt Rate > 60; Glucose 92 mg/dL (65-110); Potassium 4.4 mmol/L (3.4-5.0); Sodium 134 mmol/L (137-145)
--- NOTE | 2023-05-27 13:24 | ED.GENADULT ---
HPI - General Adult General Chief complaint: Shortness of Breath/Dyspnea Stated complaint: dyspnea, headache Time Seen by Provider: 05/27/23 13:00 History of Present Illness HPI narrative: 58-year-old female with history of COPD presented to the emergency department for evaluation of worsening shortness of breath. Patient states she has had COPD for a long time and does still continue to smoke. Patient does not follow-up with a franchise manager but is treated by the hospitalist at her assisted living. Patient reports increasing shortness of breath over the last few days. Patient does not have an O2 requirement at home. Related Data Home Medications Medication Instructions Recorded Confirmed albuterol sulfate 90 mcg/actuation 2 puff inhalation Q4H PRN 01/02/23 01/02/23 aerosol inhaler Shortness Of Breath Or Wheezing cholecalciferol (vitamin D3) 25 25 mcg PO DAILY 01/02/23 01/02/23 mcg (1,000 unit) tablet cholecalciferol (vitamin D3) 50 100 mcg PO DAILY 01/02/23 01/02/23 mcg (2,000 unit) tablet famotidine 20 mg tablet 20 mg PO BID 01/02/23 01/02/23 guaifenesin 100 mg/5 mL oral 200 mg PO Q4H PRN Cough 01/02/23 01/02/23 liquid (Robafen) ondansetron 4 mg disintegrating 4 mg PO Q6H PRN Nausea And Vomiting 01/02/23 01/02/23 tablet tiotropium bromide 18 mcg capsule 1 cap inhalation DAILY 01/02/23 01/02/23 with inhalation device (Spiriva with HandiHaler) tizanidine 4 mg tablet 4 mg PO Q8H PRN Muscle Spasm 01/02/23 01/02/23 budesonide-formoterol HFA 160 1 puff inhalation DAILY 01/03/23 01/03/23 mcg-4.5 mcg/actuation aerosol inhaler (Symbicort) duloxetine 60 mg capsule,delayed 60 mg PO DAILY 01/03/23 01/03/23 release folic acid 1 mg tablet 1 mg PO DAILY 01/03/23 01/03/23 Allergies Allergy/AdvReac Type Severity Reaction Status Date / Time No Known Allergies Allergy Unknown Verified 01/02/23 12:50 Review of Systems Review of Systems: All systems reviewed & are unremarkable except as noted in HPI and below PMFSH Past Medical History Medical History (Updated 05/27/23 @ 14:38 by Rolo Menezes MD) Anxiety Bipolar disorder Chronic obstructive pulmonary disease Depression Diverticulitis Fibromyalgia Spinal stenosis Tobacco dependence Surgical History Surgical History (Updated 01/04/23 @ 13:57 by Myrna Alberts PA-C) History of ankle surgery History of partial hysterectomy Family History Family History Father Acute myocardial infarction Congestive heart failure Hypertension Prostate carcinoma Sibling Chronic obstructive pulmonary disease Cerebrovascular accident Social History Social History (Updated 01/04/23 @ 13:57 by Myrna Alberts PA-C) Social History: Surrogate medical decision maker: Charito Fish, daughter. Code status: Full code. Smoking status: Current some day smoker Tobacco type: cigarettes Alcohol intake: never Substance use: never Substance use type: crack/cocaine and amphetamines Lack of Transportation: No Lack of Food: Never True Current Housing: I Have Housing Concerned About Future Housing: No Difficulty Paying Gas/Electric Bills: No Difficulty Paying for Meds: No Currently Unemployed: No Education: High School Diploma/GED Difficulty w/ Childcare or Family Care: No Spiritual care concerns: No Exam Narrative: APPEARANCE: Well appearing, no pain, no distress, well-nourished. HEAD: normocephalic, atraumatic. EYES: PERRLA/EOMI, conjunctivae clear. NOSE: Normal no drainage NECK: Supple. No adenopathy, no masses. RESPIRATORY: Airway patent, respirations nonlabored. Wheezing CARDIOVASCULAR: Regular rate and rhythm without murmurs rubs or gallops. ABDOMINAL: Soft, nontender, nondistended, normal bowel sounds MUSCULOSKELETAL: Moves all extremities. Strength/ROM intact, No edema, No calf tenderness. NEURO: Alert. Cranial nerves II through XII intact. Grossly
[2023-05-27] MEDS: ALBUTEROL SULFATE NEB 2.5 MG/3 ML INH INHALATION (13:25)
[2023-05-27] MEDS: methylPREDNISolone SOD SUCC 125 MG VIAL IV PUSH (13:50)
[2023-05-27 13:56] LABS: Influenza A QL RT-PCR Negative (Negative); Influenza B QL RT-PCR Negative (Negative); RSV RNA, RT-PCR Negative (Negative); SARS-CoV-2 RNA PCR Negative (Negative)
== END 2023-05-27 15:30 | disposition home or self-care (01) ==
PROVIDERS: Emergency Medicine; Emergency Provider Emergency Medicine
DX: J44.1 Chronic obstructive pulmonary disease with (acute) exacerbation (principal); Z20.822 Contact with and (suspected) exposure to COVID-19; M79.7 Fibromyalgia; F41.9 Anxiety disorder, unspecified; F31.9 Bipolar disorder, unspecified; F17.210 Nicotine dependence, cigarettes, uncomplicated
CPT/HCPCS: 36415; 71046; 80053; 85025; 87637; 93005; 94640; 96374; 99284; J2930

== ENCOUNTER 2023-07-05 14:28 | Emergency (ER) | payer OTHER, SELFPAY ==
--- NOTE | ~2023-07-05 | XR_ITS ---
XR shoulder RT min 2V 07/05/2023 15:11 Indication: Right shoulder pain Procedure: 4 views right shoulder Comparison: No prior studies for comparison. Findings: No fracture, subluxation or dislocation. No significant soft tissue abnormality. No foreign bodies. There is deformity of the humeral head suggesting a old healed Hill-Sachs fracture deformity . Impression: 1: No acute fracture. 2: Possible old Hill-Sachs fracture deformity. Reviewed, dictated and finalized at location B. Impression: 1: No acute fracture. 2: Possible old Hill-Sachs fracture deformity.
[2023-07-05 14:37] VITALS: BP 109/68; PULSE 86; RESP 16; TEMP 36.6; O2SAT 100
--- NOTE | 2023-07-05 16:08 | ED.UPPEXIN ---
HPI - Extremity Injury (Upper) General Chief Complaint: Extremity Injury, Upper Stated Complaint: R shoulder pain x1 year Time Seen by Provider: 07/05/23 14:50 History of Present Illness HPI narrative: Patient fell and hit her shoulder twice a year ago, since then she has been having some pain in that shoulder, she has done physical therapy for it which slightly helps but now she feels like the pain has been getting worse and worse, worse when she moves it. No focal numbness or weakness Related Data Home Medications Medication Instructions Recorded Confirmed albuterol sulfate 90 mcg/actuation 2 puff inhalation Q4H PRN 01/02/23 01/02/23 aerosol inhaler Shortness Of Breath Or Wheezing cholecalciferol (vitamin D3) 25 25 mcg PO DAILY 01/02/23 01/02/23 mcg (1,000 unit) tablet cholecalciferol (vitamin D3) 50 100 mcg PO DAILY 01/02/23 01/02/23 mcg (2,000 unit) tablet famotidine 20 mg tablet 20 mg PO BID 01/02/23 01/02/23 guaifenesin 100 mg/5 mL oral 200 mg PO Q4H PRN Cough 01/02/23 01/02/23 liquid (Robafen) ondansetron 4 mg disintegrating 4 mg PO Q6H PRN Nausea And Vomiting 01/02/23 01/02/23 tablet tiotropium bromide 18 mcg capsule 1 cap inhalation DAILY 01/02/23 01/02/23 with inhalation device (Spiriva with HandiHaler) tizanidine 4 mg tablet 4 mg PO Q8H PRN Muscle Spasm 01/02/23 01/02/23 budesonide-formoterol HFA 160 1 puff inhalation DAILY 01/03/23 01/03/23 mcg-4.5 mcg/actuation aerosol inhaler (Symbicort) duloxetine 60 mg capsule,delayed 60 mg PO DAILY 01/03/23 01/03/23 release folic acid 1 mg tablet 1 mg PO DAILY 01/03/23 01/03/23 Allergies Allergy/AdvReac Type Severity Reaction Status Date / Time No Known Allergies Allergy Unknown Verified 01/02/23 12:50 Review of Systems Review of Systems: CONST: No fever. HEENT: No sore throat C/V: No chest pain RESP: No cough GI: No nausea or vomiting : No dysuria. M/S: Right shoulder pain SKIN: No rash. NEURO: [No headache or focal numbness or weakness] PSYCH: [No depression] [facility] Past Medical History Medical History (Updated 07/05/23 @ 16:08 by Jaylene Sanchez MD) Anxiety Bipolar disorder Chronic obstructive pulmonary disease Depression Diverticulitis Fibromyalgia Spinal stenosis Tobacco dependence Surgical History Surgical History (Updated 01/04/23 @ 13:57 by Myrna Alberts PA-C) History of ankle surgery History of partial hysterectomy Family History Family History Father Acute myocardial infarction Congestive heart failure Hypertension Prostate carcinoma Sibling Chronic obstructive pulmonary disease Cerebrovascular accident Social History Social History (Updated 01/04/23 @ 13:57 by Myrna Alberts PA-C) Social History: Surrogate medical decision maker: Charito Fish, daughter. Code status: Full code. Smoking status: Current some day smoker Tobacco type: cigarettes Alcohol intake: never Substance use: never Substance use type: crack/cocaine and amphetamines Lack of Transportation: No Lack of Food: Never True Current Housing: I Have Housing Concerned About Future Housing: No Difficulty Paying Gas/Electric Bills: No Difficulty Paying for Meds: No Currently Unemployed: No Education: High School Diploma/GED Difficulty w/ Childcare or Family Care: No Spiritual care concerns: No Exam Narrative: EXAMINATION OF ORGAN SYSTEMS/BODY AREAS: Constitutional: Vital signs per nursing GENERAL:[No acute distress, non-toxic appearing.] HEAD: Normal with no signs of head trauma. EYES: EOMI, conjunctiva normal ENT: Hearing grossly intact LUNGS: Nonlabored breathing. HEART: [Regular rate and rhythm] ABD: [Soft], nontender to palpation EXT: Right shoulder pain, normal radial pulses, normal sensation, painless range of motion with full forward flexion of arm but elicitation of pain past 60 degrees circumflexion SKI
[2023-07-05] MEDS: ACETAMINOPHEN 500 MG TABLET 1000 MG PO (16:45)
== END 2023-07-05 16:59 | disposition home or self-care (01) ==
PROVIDERS: Emergency Provider Emergency Medicine
DX: M25.511 Pain in right shoulder (principal); G89.29 Other chronic pain; J44.9 Chronic obstructive pulmonary disease, unspecified; M79.7 Fibromyalgia; Z90.711 Acquired absence of uterus with remaining cervical stump; F17.210 Nicotine dependence, cigarettes, uncomplicated
CPT/HCPCS: 73030; 99283; A9270

== ENCOUNTER 2023-08-26 06:39 | Emergency (ER) | payer OTHER, SELFPAY ==
[2023-08-26] VITALS (31 sets, daily range): BP systolic 101–131; BP diastolic 74–111; PULSE 85–125; RESP 10–24; TEMP 36.2; O2SAT 90–100
--- NOTE | ~2023-08-26 | XR_ITS ---
EXAMINATION: XR chest 2V DATE: 08/26/2023 09:04 INDICATION: Cough. TECHNIQUE: Frontal and lateral views of the chest were obtained. COMPARISON: Chest 2 views 05/27/2023 FINDINGS: There is no pneumonia, pleural effusion, or pneumothorax. The heart size is normal. There a re prominent paracardial fat pads. There is an old healed fracture of left clavicle. IMPRESSION: 1. No acute cardiopulmonary disease. Reviewed, dictated and finalized at location A. IFIED PERSONAL CHEF
--- NOTE | 2023-08-26 06:48 | ECG_ITS ---
Measurements Intervals [place] Rate: 85 P: 47 AL: 171 QRS: 3 QRSD: 85 T: 48 QT: 361 QTc: 431 Interpretive Statements SINUS RHYTHM NORMAL ECG COMPARED TO ECG 05/27/2023 12:52:29 NO SIGNIFICANT CHANGES Electronically Signed On 08-26-2023 7:43:48 RN HEART by Sergio Loja D.O.
--- NOTE | 2023-08-26 07:34 | ED.SOB ---
HPI - SOB/Dyspnea General Chief Complaint: Shortness of Breath/Dyspnea Stated Complaint: dyspnea Time Seen by Provider: 08/26/23 06:59 History of Present Illness HPI Narrative: Patient is a 4-year-old female who presents ER with shortness of breath. Ongoing for 1 week. She reports frequent cough that will make her lightheaded when she gets in a coughing fit. Patient has history of tobacco abuse but has not been able to smoke for the last 3 days due to her cough. It is associated with sinus congestion sore throat. No known sick contacts. Patient has not been using any inhalers or nebulizer treatments. No alleviating factors. Related Data Home Medications Medication Instructions Recorded Confirmed albuterol sulfate 90 mcg/actuation 2 puff inhalation Q4H PRN 01/02/23 01/02/23 aerosol inhaler Shortness Of Breath Or Wheezing cholecalciferol (vitamin D3) 25 25 mcg PO DAILY 01/02/23 01/02/23 mcg (1,000 unit) tablet cholecalciferol (vitamin D3) 50 100 mcg PO DAILY 01/02/23 01/02/23 mcg (2,000 unit) tablet famotidine 20 mg tablet 20 mg PO BID 01/02/23 01/02/23 guaifenesin 100 mg/5 mL oral 200 mg PO Q4H PRN Cough 01/02/23 01/02/23 liquid (Robafen) ondansetron 4 mg disintegrating 4 mg PO Q6H PRN Nausea And Vomiting 01/02/23 01/02/23 tablet tiotropium bromide 18 mcg capsule 1 cap inhalation DAILY 01/02/23 01/02/23 with inhalation device (Spiriva with HandiHaler) tizanidine 4 mg tablet 4 mg PO Q8H PRN Muscle Spasm 01/02/23 01/02/23 budesonide-formoterol HFA 160 1 puff inhalation DAILY 01/03/23 01/03/23 mcg-4.5 mcg/actuation aerosol inhaler (Symbicort) duloxetine 60 mg capsule,delayed 60 mg PO DAILY 01/03/23 01/03/23 release folic acid 1 mg tablet 1 mg PO DAILY 01/03/23 01/03/23 Allergies Allergy/AdvReac Type Severity Reaction Status Date / Time No Known Allergies Allergy Unknown Verified 08/26/23 06:51 Review of Systems Review of Systems: All systems reviewed & are unremarkable except as noted in HPI and below Constitutional: Constitutional: Denies chills, Denies fatigue and Denies fever(s) ENT: Reports nasal congestion and Reports sore throat Cardiovascular: Cardiovascular: Denies chest pain, Denies rapid heart rate and Denies radiating jaw, neck or arm pain Respiratory: Respiratory: Reports cough, Reports dyspnea and Reports wheezing Gastrointestinal: Gastrointestinal: Denies abdominal pain, Denies nausea and Denies vomiting PMFSH Past Medical History Medical History (Updated 08/26/23 @ 09:59 by Tavo Castillo MD) Anxiety Bipolar disorder Chronic obstructive pulmonary disease Depression Diverticulitis Fibromyalgia Spinal stenosis Tobacco dependence Surgical History Surgical History (Updated 01/04/23 @ 13:57 by Myrna Alberts PA-C) History of ankle surgery History of partial hysterectomy Family History Family History Father Acute myocardial infarction Congestive heart failure Hypertension Prostate carcinoma Sibling Chronic obstructive pulmonary disease Cerebrovascular accident Social History Social History (Updated 01/04/23 @ 13:57 by Myrna Alberts PA-C) Social History: Surrogate medical decision maker: Charito Fish, daughter. Code status: Full code. Smoking status: Current some day smoker Tobacco type: cigarettes Alcohol intake: never Substance use: never Substance use type: crack/cocaine and amphetamines Lack of Transportation: No Lack of Food: Never True Current Housing: I Have Housing Concerned About Future Housing: No Difficulty Paying Gas/Electric Bills: No Difficulty Paying for Meds: No Currently Unemployed: No Education: High School Diploma/GED Difficulty w/ Childcare or Family Care: No Spiritual care concerns: No Exam Narrative: GENERAL: Well-appearing, well-nourished, and in no acute distress. HEAD: Normocephalic, atraumatic. ENT: Muc
[2023-08-26 07:47] LABS: Basophils Percent Auto 0.3 % (0.2-1.2); Eosinophils Absolute Auto 0.1 K/mm3 (0-0.3); Eosinophils Percent Auto 1.3 % (0-4.4); Hematocrit 42.2 % (37.0-47.0); Hemoglobin 12.9 g/dL (12.0-15.0); Immature Granulocyte Absolute 0.03 K/mm3 (0.00-0.031); Immature Granulocyte Percent A 0.3 % (0-0.5); Lymphocytes Absolute Auto 1.12 K/mm3 (0.9-3.2); Mean Corpuscular HGB Conc 30.6 g/dl (32-36); Mean Corpuscular Volume 81.6 fl (80-100); Mean Platelet Volume 8.7 fl (7.4-10.4); Monocytes Absolute Auto 0.5 K/mm3 (0.1-0.6); Monocytes Percent Auto 5.2 % (2.6-8.5); Neutrophils Absolute Auto 7.6 K/mm3 (1.3-6.7); Neutrophils Percent Auto 80.9 % (45.5-73.1); Platelet Count Result 388 k/mm3 (150-375); Red Blood Count 5.17 M/mm3 (4.2-5.4); Red Cell Distribution Width 14.2 % (11.5-14.5); White Blood Count 9.4 K/mm3 (4.5-10.0)
[2023-08-26 07:58] LABS: Alanine Aminotransferase 15 U/L (6-35); Alkaline Phosphatase 79 U/L (38-126); Anion Gap 11 mmol/L (8-16); Aspartate Amino Transferase 19 U/L (14-36); Bilirubin,Total 0.4 mg/dL (0.2-1.3); Blood Urea Nitrogen 18 mg/dL (7-17); Calcium 9.1 mg/dL (8.4-10.2); Carbon Dioxide 21 mmol/L (22-30); Chloride 104 mmol/L (98-107); Estimated CRCL calculation 71 ml/min; Estimated Glomerular Filt Rate > 60; Glucose 114 mg/dL (65-110); Potassium 4.3 mmol/L (3.4-5.0); Sodium 136 mmol/L (137-145)
[2023-08-26 08:33] LABS: Influenza A QL RT-PCR Negative (Negative); Influenza B QL RT-PCR Negative (Negative); SARS-CoV-2 RNA PCR Negative (Negative)
[2023-08-26] MEDS: IPRATROPIUM BR 0.02% INH SOLN 0.5 MG/2.5 ML VIAL 1 MG INHALATION (09:12)
[2023-08-26] MEDS: ALBUTEROL SULFATE NEB 2.5 MG/3 ML INH 10 MG INHALATION (09:12)
== END 2023-08-26 10:20 ==
PROVIDERS: Emergency Provider Emergency Medicine
DX: J44.1 Chronic obstructive pulmonary disease with (acute) exacerbation (principal); Z20.822 Contact with and (suspected) exposure to COVID-19; M79.7 Fibromyalgia; F17.210 Nicotine dependence, cigarettes, uncomplicated; F41.9 Anxiety disorder, unspecified; F31.9 Bipolar disorder, unspecified; Z90.711 Acquired absence of uterus with remaining cervical stump
CPT/HCPCS: 36415; 71046; 80053; 85025; 87636; 93005; 94640; 99283

== ENCOUNTER 2023-09-11 17:07 | Observation (INO) | payer OTHER, SELFPAY ==
--- NOTE | ~2023-09-11 | XR_ITS ---
EXAMINATION: XR chest 2V DATE: 09/11/2023 20:18 INDICATION: Cough. TECHNIQUE: Frontal and lateral views of the chest were obtained. COMPARISON: Chest 2 views 08/26/2023, CT abdomen 04/04/2008 FINDINGS: There is no pneumonia, pleural effusion, or pneumothorax. The heart size is normal. There a re prominent paracardial fat pads. IMPRESSION: 1. No acute cardiopulmonary disease. Reviewed, dictated and finalized at location E. ING HELPER
[2023-09-11 17:59] VITALS: BP 129/85; PULSE 109; RESP 18; TEMP 36.3; O2SAT 93
[2023-09-11 18:20] VITALS: BP 114/68; PULSE 110; RESP 19; TEMP 36.9; O2SAT 97
--- NOTE | 2023-09-11 18:28 | ED.PSYCH ---
HPI - Psych General Chief Complaint: Psychiatric Symptoms <RALPH Kahn Last Filed: 09/12/23 03:50> Stated Complaint: feels high and like going through withdrawls <RALPH Kahn Last Filed: 09/12/23 03:50> Time Seen by Provider: 09/11/23 18:22 <Yarely Baeza PA-C - Last Filed: 09/12/23 03:50> Source: patient and EMS <RALPH Kahn Last Filed: 09/12/23 03:50> Mode of arrival: EMS <RALPH Kahn Last Filed: 09/12/23 03:50> Limitations: intoxication <RALPH Kahn Last Filed: 09/12/23 03:50> History of Present Illness HPI Narrative: This is a 58 year old female that presents to the ER for thoughts of harming herself. Reports she has struggled with addiction for many years. Reports recent struggle with addiction to methamphetamines and cocaine. Last use was this morning. Reports she has been having thoughts of harming herself. Reports she would overdose on pills. Reports previous history of self-harm and psychiatric hospitalization. Reports she wants to get help. Denies homicidal ideation or hallucinations. <Yarely Baeza PA-C - Last Filed: 09/12/23 03:50> Related Data Home Medications: Home Medications Medication Instructions Recorded Confirmed budesonide-formoterol HFA 160 inhalation 09/12/23 mcg-4.5 mcg/actuation aerosol inhaler (Symbicort) cholecalciferol (vitamin D3) 25 09/12/23 mcg (1,000 unit) tablet cholecalciferol (vitamin D3) 50 09/12/23 mcg (2,000 unit) tablet codeine 10 mg-guaifenesin 100 mg/5 ml 09/12/23 mL oral liquid lisinopril 10 mg tablet mg 09/12/23 omeprazole 20 mg capsule,delayed mg 09/12/23 release tiotropium bromide 18 mcg capsule inhalation 09/12/23 with inhalation device tizanidine 4 mg tablet mg 09/12/23 <RALPH Kahn Last Filed: 09/12/23 03:50> Allergies/Adverse Reactions: Allergies Allergy/AdvReac Type Severity Reaction Status Date / Time No Known Allergies Allergy Verified 09/11/23 17:08 <Yarely Baeza PA-C - Last Filed: 09/12/23 03:50> Review of Systems Review of Systems: CONSTITUTIONAL: Denies fever CARDIOVASCULAR: Denies chest pain RESPIRATORY: Denies dyspnea. GASTROINTESTINAL: Denies abdominal pain, vomiting PSYCHIATRIC: Reports depression. <RALPH Kahn Last Filed: 09/12/23 03:50> All systems reviewed & are unremarkable except as noted in HPI and below <RALPH Kahn Last Filed: 09/12/23 03:50> PMFSH Past Medical History Medical History: Medical History (Updated 09/12/23 @ 17:50 by Jitendra Kwon MD) Chronic recurrent major depressive disorder History of COPD History of hypertension History of substance abuse Nicotine dependence, cigarettes, with other nicotine-induced disorders <RALPH Kahn Last Filed: 09/12/23 03:50> Social History Social History: Social History Years smoked: 40 Smoking status: Current every day smoker Tobacco type: cigarettes Second hand tobacco smoke exposure: No Alcohol intake: never Substance use: current Substance use type: crack/cocaine and methamphetamine Last use: 09/10/23 Lack of Transportation: No Lack of Food: Never True Current Housing: I Have Housing Concerned About Future Housing: No Difficulty Paying Gas/Electric Bills: No Difficulty Paying for Meds: No Currently Unemployed: No Education: Grade School Difficulty w/ Childcare or Family Care: No Spiritual care concerns: No <RALPH Kahn Last Filed: 09/12/23 03:50> Exam Narrative: GENERAL: Disheveled, well-nourished, and in no acute distress. HEAD: Normocephalic, atraumatic. EYES: EOMI. CHEST: Clear to auscultation. No respiratory distress. No wheezes rales or rhonchi HEART: Regular rate and rhythm. No murmur heard. Normal peripheral pulses. EXTREMITIES: Normal range of motion
[2023-09-11] MEDS: SODIUM CHLORIDE 0.9% IV 1,000 ML 999 ML IV CONT (18:39)
[2023-09-11 18:46] LABS: Basophils Percent Auto 0.2 % (0.2-1.2); Eosinophils Percent Auto 0.2 % (0-4.4); Hematocrit 35.3 % (37.0-47.0); Hemoglobin 11.6 g/dL (12.0-15.0); Immature Granulocyte Absolute 0.04 K/mm3 (0.00-0.031); Immature Granulocyte Percent A 0.3 % (0-0.5); Lymphocytes Absolute Auto 0.55 K/mm3 (0.9-3.2); Lymphocytes Percent Auto 4.4 % (18.3-44.2); Mean Corpuscular HGB Conc 32.9 g/dl (32-36); Mean Corpuscular Hemoglobin 25.2 pg (26-34); Mean Corpuscular Volume 76.7 fl (80-100); Mean Platelet Volume 8.5 fl (7.4-10.4); Monocytes Absolute Auto 0.4 K/mm3 (0.1-0.6); Monocytes Percent Auto 2.9 % (2.6-8.5); Neutrophils Absolute Auto 11.4 K/mm3 (1.3-6.7); Platelet Count Result 392 k/mm3 (150-375); Red Cell Distribution Width 13.2 % (11.5-14.5); White Blood Count 12.4 K/mm3 (4.5-10.0)
[2023-09-11 19:02] LABS: Alanine Aminotransferase 26 U/L (6-35); Albumin Level 4.3 g/dL (3.5-5.1); Alkaline Phosphatase 96 U/L (38-126); Anion Gap 11 mmol/L (8-16); Aspartate Amino Transferase 30 U/L (14-36); Blood Urea Nitrogen 6 mg/dL (7-17); Calcium 8.9 mg/dL (8.4-10.2); Carbon Dioxide 25 mmol/L (22-30); Chloride 88 mmol/L (98-107); Estimated Glomerular Filt Rate > 60; Glucose 140 mg/dL (65-110); Potassium 3.4 mmol/L (3.4-5.0); Sodium 124 mmol/L (137-145)
[2023-09-11 19:06] LABS: Acetaminophen < 10 ug/mL (10-30); Ethanol < 10 mg/dL (<10); Salicylate < 1.0 mg/dL (2-20)
[2023-09-11 19:32] LABS: Creatine Kinase 191 U/L (30-135)
[2023-09-11 20:08] LABS: Appearance Urine Clear (Clear); Bacteria Urine None Seen /hpf; Bilirubin Urine Negative (Negative); Blood Urine Negative (Negative); Color Urine Yellow (Yellow); Glucose Urine UA Negative (Negative); Ketones Urine Negative (Negative); Leukocyte Esterase Ur Trace LEU/UL (Negative); Need Manual Microscopic Reviewed; Nitrate Urine Negative (Negative); Non Pathogenic Casts 0-2; Protein Urine Negative (Negative); RBC Urine 0-2 /hpf (0-2); Specific Grav Ur 1.004 (1.001-1.035); Squamous Epithelial Cell Urine Few /hpf (Few); WBC Urine 0-5 /hpf; pH Urine 6.5 (5.0-9.0)
[2023-09-11 20:11] LABS: Add Urine Microscopic? YES
[2023-09-11 20:15] LABS: Barbiturate Screen Urine Negative (Negative); Benzodiazepines Screen Urine Negative (Negative)
[2023-09-11 20:17] LABS: Cannabinoid Screen Urine Negative (Negative); Cocaine Screen Urine Positive (Negative); Methadone Screen Urine Negative (Negative); Opiate Screen Urine Positive (Negative); Phencyclidine Screen Urine Negative (Negative)
[2023-09-11 20:29] LABS: Thyroid Stimulating Hormone Reflex 0.481 uIU/mL (0.465-4.68)
[2023-09-11 20:36] LABS: Influenza A QL RT-PCR Negative (Negative); Influenza B QL RT-PCR Negative (Negative); RSV RNA, RT-PCR Negative (Negative); SARS-CoV-2 RNA PCR Negative (Negative)
[2023-09-11 20:59] LABS: Amphetamine Screen Urine Positive (Negative)
[2023-09-11] MEDS: SODIUM CHLORIDE 0.9% IV 1,000 ML 125 ML IV CONT (21:02)
--- NOTE | 2023-09-11 21:15 | ECG_ITS ---
Measurements Intervals [place] Rate: 95 P: 65 DE: 187 QRS: 16 QRSD: 100 T: 44 QT: 387 QTc: 488 Interpretive Statements SINUS RHYTHM NO PREVIOUS ECG AVAILABLE FOR COMPARISON Electronically Signed On 09-12-2023 13:26:26 [facility] by aFy Oliver M.D.
--- NOTE | 2023-09-11 23:07 | PC.NURSE ---
report and care given to AKHIL Gonsalez. all questions answered
[2023-09-12] VITALS (21 sets, daily range): BP systolic 128–176; BP diastolic 74–105; PULSE 93–117; RESP 16–26; TEMP 36.7–37.1; O2SAT 95–100
[2023-09-12] MEDS: predniSONE 20 MG TABLET 40 MG PO (00:18)
[2023-09-12] MEDS: LORazepam (*CRX) 0.5 MG TABLET PO ×3 (00:25→05:23)
[2023-09-12] MEDS: IPRATROPIUM BR 0.02% INH SOLN 0.5 MG/2.5 ML VIAL INHALATION ×3 (00:34→14:08)
[2023-09-12] MEDS: ALBUTEROL SULFATE NEB 2.5 MG/3 ML INH INHALATION ×3 (00:34→14:08)
--- NOTE | 2023-09-12 01:05 | PC.NURSE ---
Pt crying, restless on stretcher. Pt states Im really upset, I dont know what to do . PA Yarely at bedside.
[2023-09-12 01:28] LABS: Anion Gap 9 mmol/L (8-16); Blood Urea Nitrogen 7 mg/dL (7-17); Calcium 8.5 mg/dL (8.4-10.2); Carbon Dioxide 24 mmol/L (22-30); Chloride 96 mmol/L (98-107); Estimated Glomerular Filt Rate > 60; Glucose 138 mg/dL (65-110); Potassium 3.7 mmol/L (3.4-5.0); Sodium 129 mmol/L (137-145)
[2023-09-12] MEDS: ALBUTEROL SULFATE NEB 2.5 MG/3 ML INH 15 MG INHALATION (01:35)
[2023-09-12] MEDS: IPRATROPIUM BR 0.02% INH SOLN 0.5 MG/2.5 ML VIAL 1.5 MG INHALATION (01:35)
--- NOTE | 2023-09-12 01:35 | PCRCNOTE ---
Pt complains about neb being 1 hour long. Says she wont be able to do a full hour.
[2023-09-12 03:30] LABS: NT Pro B Type Natriuretic Pept 217 pg/mL (19.9-100)
[2023-09-12] MEDS: predniSONE 20 MG TABLET 60 MG PO (09:25)
[2023-09-12] MEDS: LORazepam (*CRX) 1 MG TABLET PO ×2 (09:29→20:45)
[2023-09-12 12:28] LABS: Anion Gap 9 mmol/L (8-16); Blood Urea Nitrogen 11 mg/dL (7-17); Carbon Dioxide 25 mmol/L (22-30); Chloride 96 mmol/L (98-107); Estimated Glomerular Filt Rate > 60; Glucose 109 mg/dL (65-110); Potassium 3.8 mmol/L (3.4-5.0); Sodium 130 mmol/L (137-145)
--- NOTE | 2023-09-12 13:24 | PC.NURSE ---
Sitter at bedside made aware of IV tubing connected to patient. Sitter verbalized understanding of risks associated with IV tubing in patient room.
--- NOTE | 2023-09-12 13:27 | PC.NURSE ---
Per Dr. Kwon, crisis may be contacted.
--- NOTE | 2023-09-12 15:02 | PC.NURSE ---
pt continues to refuse BP will let me take one at random. Pt states I don't like it and it's too hot.
--- NOTE | 2023-09-12 16:00 | PC.NURSE ---
hospitalist reports pt is not medically clear for psych placement
[2023-09-12 16:18] LABS: Anion Gap 9 mmol/L (8-16); Blood Urea Nitrogen 12 mg/dL (7-17); Calcium 8.7 mg/dL (8.4-10.2); Carbon Dioxide 27 mmol/L (22-30); Chloride 97 mmol/L (98-107); Estimated Glomerular Filt Rate > 60; Glucose 158 mg/dL (65-110); Sodium 133 mmol/L (137-145)
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
[2023-09-12] MEDS: SODIUM CHLORIDE 0.9% IV 1,000 ML 125 ML IV CONT ×2 (18:56→21:02)
--- NOTE | 2023-09-12 21:13 | ADMGEN ---
This patient, Nohelia Cyr, was admitted to [facility] Room 333-01. Patient/family oriented to hospital policies and general routines including ID bracelet, bed and alarms, visiting hours, pain management, procedures, bathroom and other care routines, personal items, smoking policy, room service/diet, and visiting hours. Information on how to activate the Rapid Response Team has been discussed. Patient/Family are encouraged to report perceived risks to care and to ask questions if they do not understand what they are told or what they should do.
[2023-09-13] VITALS (12 sets, daily range): BP systolic 110–146; BP diastolic 64–85; PULSE 86–112; RESP 20; TEMP 36.6; O2SAT 95–100
[2023-09-13] MEDS: IPRATROPIUM BR 0.02% INH SOLN 0.5 MG/2.5 ML VIAL INHALATION ×3 (01:56→13:19)
[2023-09-13] MEDS: ALBUTEROL SULFATE NEB 2.5 MG/3 ML INH INHALATION ×3 (01:56→13:19)
[2023-09-13] MEDS: SODIUM CHLORIDE 0.9% IV 1,000 ML 125 ML IV CONT (04:33)
[2023-09-13 05:44] LABS: Basophils Percent Auto 0.2 % (0.2-1.2); Eosinophils Percent Auto 0.2 % (0-4.4); Hematocrit 29.5 % (37.0-47.0); Hemoglobin 9.1 g/dL (12.0-15.0); Immature Granulocyte Absolute 0.04 K/mm3 (0.00-0.031); Immature Granulocyte Percent A 0.4 % (0-0.5); Lymphocytes Absolute Auto 1.46 K/mm3 (0.9-3.2); Lymphocytes Percent Auto 14.3 % (18.3-44.2); Mean Corpuscular HGB Conc 30.8 g/dl (32-36); Mean Corpuscular Hemoglobin 25.3 pg (26-34); Mean Corpuscular Volume 82.2 fl (80-100); Mean Platelet Volume 8.7 fl (7.4-10.4); Monocytes Absolute Auto 0.6 K/mm3 (0.1-0.6); Monocytes Percent Auto 5.9 % (2.6-8.5); Neutrophils Absolute Auto 8.1 K/mm3 (1.3-6.7); Platelet Count Result 339 k/mm3 (150-375); Red Blood Count 3.59 M/mm3 (4.2-5.4); Red Cell Distribution Width 13.8 % (11.5-14.5); White Blood Count 10.2 K/mm3 (4.5-10.0)
[2023-09-13 06:04] LABS: Anion Gap 7 mmol/L (8-16); Blood Urea Nitrogen 14 mg/dL (7-17); Calcium 8.2 mg/dL (8.4-10.2); Carbon Dioxide 25 mmol/L (22-30); Chloride 102 mmol/L (98-107); Estimated CRCL calculation 95 ml/min; Estimated Glomerular Filt Rate > 60; Glucose 95 mg/dL (65-110); Magnesium 2.3 mg/dL (1.6-2.3); Phosphorus 2.8 mg/dL (2.5-4.5); Potassium 3.8 mmol/L (3.4-5.0); Sodium 134 mmol/L (137-145)
[2023-09-13] MEDS: predniSONE 20 MG TABLET 60 MG PO (08:55)
[2023-09-13] MEDS: NICOTINE (*PBKC) 21 MG PATCH 1 PATCH TRANSDERM (08:55)
--- NOTE | 2023-09-13 13:03 | PC.NURSE ---
Dr. Kwon cleared patient for discharge to [facility]
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
== END 2023-09-13 16:00 | disposition other institution (70) ==
LOC: ANHED 09-12 03:20 → ANH3MEDSUR 09-12 05:22
PROVIDERS: Admitting Provider Internal Medicine; Emergency Provider Physician Assistant; Visit Provider Family Medicine
DX: R45.851 Suicidal ideations (principal); F33.9 Major depressive disorder, recurrent, unspecified; F15.10 Other stimulant abuse, uncomplicated; F14.10 Cocaine abuse, uncomplicated; F19.10 Other psychoactive substance abuse, uncomplicated; J44.1 Chronic obstructive pulmonary disease with (acute) exacerbation; E87.1 Hypo-osmolality and hyponatremia; D72.829 Elevated white blood cell count, unspecified; Z20.822 Contact with and (suspected) exposure to COVID-19; F17.218 Nicotine dependence, cigarettes, with other nicotine-induced disorders; Z71.6 Tobacco abuse counseling; I10 Essential (primary) hypertension; Z79.51 Long term (current) use of inhaled steroids; Z79.899 Other long term (current) drug therapy
CPT/HCPCS: 36415; 71046; 80048; 80053; 80307; 81001; 81025; 82550; 83735; 83880; 84100; 84443; 85025; 87637; 93005; 94640; 96360; 96361; 99285; A9270; G0378; G0379; J7030; J7512

== ENCOUNTER 2024-04-18 10:16 | Outpatient (CLI) | payer OTHER, SELFPAY ==
--- NOTE | ~2024-04-18 | MR_ITS ---
MRI of the right shoulder Technique: Axial proton-density fat-sat images, coronal proton density fat-sat and T2 fat-sat images, and sagittal T1-weighted and T2 fat-sat images were acquired. Clinical History: Pain Findings: There is advanced AC joint degenerative change, with small subchondral spur, bony productiv e change of the distal clavicle, and fluid in the joint space. Coracoclavicular, coracoacromial, and coracohumeral ligaments appear intact. There are complete, full-thickness tears involving the entirety of the supraspinatus and infraspinatu s tendons, which are retracted to the level of the glenohumeral joint. Fluid-filled gap measures at l east 3.0 x 4.0 cm in extent. Subscapularis tendon is intact, with moderate to severe tendinosis. Tend on of long head of the biceps is intact, with intra-articular tendinosis. There is superior labral tear probably extending to the anterosuperior and posterior superior portion s. Degenerative tearing probably extends through the anterior labrum at the equator to the anteroinfe rior labrum. There is probable degenerative attenuation extensive involving the posterior labrum as w ell. There is a large inferomedial humeral head osteophyte. There is extensive grade IV chondromalacia of the glenohumeral joint. Humeral head is mildly high riding. Inferior glenohumeral ligament is intact. There is small glenohumeral joint effusion, with fluid pass ing through the rotator cuff defect into the subacromial/subdeltoid bursa, probably directly into the AC joint is well, with probable rupture of the inferior acromioclavicular ligament. There is marked fatty atrophy of the infraspinatus muscle belly. Questionable mild loss of bulk of the supraspinatus muscle belly. Impression: Complete, full-thickness tears of the entirety of the supraspinatus and infraspinatus tendons, as det tripp above. This is a moderate fatty atrophy infraspinatus muscle belly. Questionable mild loss of b ulk of the supraspinatus muscle belly. Essentially circumferential degenerative labral tearing, as detailed above. Severe glenohumeral joint degenerative change, as detailed above. Advanced AC joint degenerative change. Reviewed, dictated and finalized at location M. Impression: Complete, full-thickness tears of the entirety of the supraspinatus and infrasp inatus tendons, as detailed above. This is a moderate fatty atrophy infraspinat us muscle belly. Questionable mild loss of bulk of the supraspinatus muscle bel ly. Essentially circumferential degenerative labral tearing, as detailed above. Severe glenohumeral joint degenerative change, as detailed above. Advanced AC joint degenerative change.
== END 2024-04-18 10:17 | disposition home or self-care (01) ==
LOC: ANHIMG 10:19
PROVIDERS: PCP Internal Medicine; Visit Provider Family Medicine Sports Medicine
DX: M24.011 Loose body in right shoulder (principal); M19.011 Primary osteoarthritis, right shoulder; M75.101 Unspecified rotator cuff tear or rupture of right shoulder, not specified as traumatic
CPT/HCPCS: 73221

== ENCOUNTER 2024-06-27 12:32 | Outpatient (CLI) | payer OTHER, SELFPAY ==
--- NOTE | ~2024-06-27 | CT_ITS ---
CT Scan of the Chest without Contrast: Clinical Indication: Lung cancer screening, nicotine dependence Technique: Contiguous sections were acquired throughout the chest without intravenous contrast. Dose reduction technique was used on this scan by utilizing automated exposure control and iterative recon struction technique. The dose-length product (DLP) was 561.60 mGy-cm. Findings: There is no evidence of any significant mediastinal, hilar or axillary lymphadenopathy. Ascending aor ta measures 4.8 cm in diameter. There is no evidence of pleural or pericardial effusion. There is complete, probable chronic right middle lobe atelectasis. No pulmonary nodule identified. Images through the upper abdomen reveal no abnormalities. Impression: Lung RADS 1-S: Negative. 12 month follow-up screening CT advised. Ascending aortic aneurysm measures 4.8 cm in diameter. Complete, probable chronic right middle atelectasis. Reviewed, dictated and finalized at [facility]. Impression: Lung RADS 1-S: Negative. 12 month follow-up screening CT advised. Ascending aortic aneurysm measures 4.8 cm in diameter. Complete, probable chronic right middle atelectasis.
--- NOTE | 2024-06-28 09:46 | WPDPFTINT ---
PFT Procedure Performed PFT Procedure Performed Spirometry with Pre/Post Bronchodilator Plethysmography (Lung Vol) Diffusing Cap (DLCO) Flow Vol Loop PFT Interpretation Lung volumes were measured with the body plethysmography method. The elevated RV could indicate air trapping and the elevated TLC could be due to lung hyperinflation. The remaining lung volumes are unremarkable. Spirometry showed diminished expiratory flow rates and a borderline FEV1 to FVC FVC ratio 68% probably indicating mild obstructive airway disease. Following administration of a bronchodilator there was significant increase in expiratory flow rates. Lung diffusion capacity is diminished at 58% predicted. The diminished lung diffusion capacity coupled with a normal alveolar volume could indicate pulmonary vascular abnormality, emphysema with preserved lung volumes or anemia. Clinical correlation advised. The flow-volume loop is consistent with obstructive airway disease. Impression: Mild obstructive airway disease with significant response to bronchodilators on this testing. Moderately reduced lung diffusion capacity.
--- NOTE | 2024-06-28 09:54 | WPDSIXMINUTE ---
Six Minute Walk Procedure Procedure Performed Pulmonary Stress Test (6 min walk) Six Minute Walk Six Minute Walk: This 6 minute walk test was conducted with the patient breathing ambient air. The baseline pre walk oxyhemoglobin saturation was 96%. The patient walked 213 m with no stops during testing. During the walk the oxyhemoglobin saturation remained in the range of 95% to 97%. Impression: No evidence of significant oxyhemoglobin desaturation on this testing.
== END 2024-06-27 12:33 | disposition home or self-care (01) ==
LOC: ANHPFT 12:33
PROVIDERS: PCP Internal Medicine; Visit Provider Physician Assistant
DX: Z12.2 Encounter for screening for malignant neoplasm of respiratory organs (principal); Z87.891 Personal history of nicotine dependence; J44.9 Chronic obstructive pulmonary disease, unspecified; R94.2 Abnormal results of pulmonary function studies; I71.40 Abdominal aortic aneurysm, without rupture, unspecified
CPT/HCPCS: 71271; 94060; 94618; 94726; 94729

== ENCOUNTER 2024-07-20 13:26 | Inpatient (IN) | payer OTHER, SELFPAY ==
[2024-07-20] VITALS (8 sets, daily range): BP systolic 142–157; BP diastolic 94–102; PULSE 93–119; RESP 17–24; TEMP 36.4–36.8; O2SAT 96–98; BMI 39.1
--- NOTE | ~2024-07-20 | CT_ITS ---
CT diagnostic chest wo con Ordering provider: Sudeep Delgado MD History: 59 years Female with . COPD, RML atelectasis . Comparison: June 27, 2024 Technique: CT chest without IV contrast. Radiation reduction technique utilized.The dose-length product was 986.28 mGy-cm. FINDINGS: VISUALIZED THORACIC INLET: Normal. MEDIASTINUM: Aorta/coronary arteries: Mild atheromatous disease. Ascending aorta measures 4.4 cm. The Heart/other: The heart is not enlarged. Trace of pericardial effusion seen anteriorly. Pericardial t hickening cannot be excluded. Echocardiography evaluation advised. Lymph nodes: No mediastinal or hilar adenopathy. LUNGS: Atelectatic changes are seen in the right middle lobe. No definite mass is seen. No pulmonary nodules or masses. No infiltrates or effusions. No pneumothorax. VISUALIZED UPPER ABDOMEN: the visualized upper abdomen is normal. MUSCULOSKELETAL: Soft tissues: The superficial soft tissues are normal. Bones: Age appropriate degenerative changes of the spine. Negative fracture in the left clavicle. IMPRESSION: 1. Atelectatic changes in the right middle lobe unchanged from previous examination. 2. Slight dilatation of the ascending aorta unchanged from previous examination. 3. Minimal pericardial effusion versus thickening. Echocardiography is advised. Reviewed, dictated and finalized at location A. IMPRESSION: 1. Atelectatic changes in the right middle lobe unchanged from previous examin ation. 2. Slight dilatation of the ascending aorta unchanged from previous examinatio n. 3. Minimal pericardial effusion versus thickening. Echocardiography is advised .
--- NOTE | ~2024-07-20 | US_ITS ---
EXAMINATION: US venous doppler [facility] DATE: 07/24/2024 14:38 INDICATION: Shortness of breath. COPD. TECHNIQUE: Grayscale ultrasound images without and with compression and Doppler ultrasound images of the bilateral lower extremity veins were obtained. COMPARISON: None. FINDINGS: The visualized portions of right common femoral vein, profunda (deep) femoral vein, femoral vein, pop liteal vein, posterior tibial veins, peroneal veins, gastrocnemius vein and greater saphenous vein ou tflow are patent. The visualized portions of left common femoral vein, profunda femoral vein, femoral vein, popliteal v ein, posterior tibial veins, peroneal veins, gastrocnemius vein and greater saphenous vein outflow ar e patent. IMPRESSION: 1. No deep venous thrombosis in either lower limb. Reviewed, dictated and finalized at location A.
--- NOTE | ~2024-07-20 | XR_ITS ---
EXAMINATION: XR chest 2V Exam Date/Time: 07/20/2024 14:05 CDT HISTORY: sob, COUGH, COPD, HTN, HX SMOKER Comparison: 09/11/2023. RESULT: Lines, tubes, and devices: None. Lungs and pleura: Chronic bibasilar scar, prominent fat pads, otherwise clear. Cardiomediastinal silhouette: Stable. Other: No acute osseous or upper abdominal finding. IMPRESSION: No acute cardiopulmonary process. Reviewed, dictated and finalized at location K.
--- NOTE | 2024-07-20 13:36 | ECG_ITS ---
Test Date: 2024-07-20 13:46:31 Measurements Intervals [place] Rate: 109 P: 43 AK: 172 QRS: -12 QRSD: 86 T: 40 QT: 333 QTc: 450 Interpretive Statements SINUS TACHYCARDIA ABNORMAL RHYTHM ECG No previous ECG available for comparison Electronically Signed On 07-20-2024 13:50:59 CDT by Juan Hollingsworth M.D.
[2024-07-20 14:01] LABS: Basophils Percent Auto 0.3 % (0.2-1.2); Eosinophils Percent Auto 0.4 % (0-4.4); Hematocrit 35.8 % (37.0-47.0); Hemoglobin 12.1 g/dL (12.0-15.0); Immature Granulocyte Absolute 0.02 K/mm3 (0.00-0.031); Immature Granulocyte Percent A 0.3 % (0-0.5); Lymphocytes Absolute Auto 0.89 K/mm3 (0.9-3.2); Lymphocytes Percent Auto 11.7 % (18.3-44.2); Mean Corpuscular HGB Conc 33.8 g/dl (32-36); Mean Corpuscular Hemoglobin 26.7 pg (26-34); Mean Platelet Volume 8.3 fl (7.4-10.4); Monocytes Absolute Auto 0.7 K/mm3 (0.1-0.6); Monocytes Percent Auto 8.7 % (2.6-8.5); Neutrophils Percent Auto 78.6 % (45.5-73.1); Platelet Count Result 388 k/mm3 (150-375); Red Blood Count 4.53 M/mm3 (4.2-5.4); Red Cell Distribution Width 12.5 % (11.5-14.5); White Blood Count 7.6 K/mm3 (4.5-10.0)
[2024-07-20 14:11] LABS: Alanine Aminotransferase 21 U/L (6-35); Albumin Level 4.4 g/dL (3.5-5.1); Alkaline Phosphatase 116 U/L (38-126); Anion Gap 10 mmol/L (4-12); Aspartate Amino Transferase 27 U/L (14-36); Bilirubin,Total 0.9 mg/dL (0.2-1.3); Blood Urea Nitrogen 5 mg/dL (7-17); Carbon Dioxide 26 mmol/L (22-30); Chloride 87 mmol/L (98-107); Estimated CRCL calculation 85 ml/min; Estimated Glomerular Filt Rate > 60; Glucose 126 mg/dL (65-110); Potassium 3.2 mmol/L (3.4-5.0); Prothrombin Time 13.2 Seconds (11.1-14.7); Sodium 123 mmol/L (137-145)
[2024-07-20 14:12] LABS: Partial Thromboplastin Time 31.5 Seconds (22.3-36.8)
[2024-07-20 14:22] LABS: NT Pro B Type Natriuretic Pept 64 pg/mL (19.9-100); Troponin I < 0.012 ng/mL (0.000-0.034)
--- NOTE | 2024-07-20 16:14 | PC.NURSE ---
Pt ambulatory outside to smoke.
[2024-07-20] MEDS: predniSONE 20 MG TABLET 40 MG PO (16:54)
[2024-07-20] MEDS: IPRATROPIUM BR 0.02% INH SOLN 0.5 MG/2.5 ML VIAL 1 MG INHALATION (17:08)
[2024-07-20] MEDS: ALBUTEROL SULFATE NEB 2.5 MG/3 ML INH 15 MG INHALATION (17:08)
--- NOTE | 2024-07-20 17:41 | ED.SOB ---
HPI - SOB/Dyspnea General Chief Complaint: Shortness of Breath/Dyspnea Stated Complaint: SOB, Replase Drug Issues Time Seen by Provider: 07/20/24 16:43 History of Present Illness HPI Narrative: Patient with history of COPD who has been using a lot of crack cocaine and smoking cigarettes presents here with difficulty breathing, feels like COPD exacerbation. No chest pain Related Data Home Medications Medication Instructions Recorded Confirmed famotidine 20 mg tablet 20 mg PO BID 01/02/23 06/17/24 ondansetron 4 mg disintegrating 4 mg PO Q6H PRN Nausea And Vomiting 01/02/23 06/17/24 tablet tiotropium bromide 18 mcg capsule 1 cap inhalation DAILY 01/02/23 06/17/24 with inhalation device (Spiriva with HandiHaler) tizanidine 4 mg tablet 4 mg PO Q8H PRN Muscle Spasm 01/02/23 06/17/24 budesonide-formoterol HFA 160 inhalation 09/12/23 06/17/24 mcg-4.5 mcg/actuation aerosol inhaler (Symbicort) lisinopril 10 mg tablet mg 09/12/23 06/17/24 omeprazole 20 mg capsule,delayed mg 09/12/23 06/17/24 release tiotropium bromide 18 mcg capsule inhalation 09/12/23 06/17/24 with inhalation device brexpiprazole 0.25 mg tablet 0.25 mg PO DAILY 06/17/24 06/17/24 (Rexulti) bupropion HCl 150 mg tablet,12 hr 150 mg PO DAILY 06/17/24 06/17/24 sustained-release dextromethorphan-guaifenesin 10 5 ml PO Q6-8H PRN 06/17/24 06/17/24 mg-100 mg/5 mL oral syrup (Chest Congestion Relief DM) hydroxyzine pamoate 25 mg capsule 25 mg PO DAILY 06/17/24 06/17/24 prednisone 20 mg tablet 20 mg PO DAILY 06/17/24 06/17/24 Allergies Allergy/AdvReac Type Severity Reaction Status Date / Time No Known Allergies Allergy Unknown Verified 06/17/24 11:09 Review of Systems Review of Systems: All systems reviewed & are unremarkable except as noted in HPI and below PMFSH Past Medical History Medical History (Updated 07/20/24 @ 17:45 by Jaylene Sanchez MD) Anxiety Bipolar disorder Chronic obstructive pulmonary disease Chronic recurrent major depressive disorder Depression Diverticulitis Fibromyalgia History of COPD History of hypertension History of substance abuse Nicotine dependence, cigarettes, with other nicotine-induced disorders Spinal stenosis Tobacco dependence Surgical History Surgical History (System 01/24/24 @ 14:00 by Estrellita Reese) History of ankle surgery History of partial hysterectomy Family History Family History Father Acute myocardial infarction Congestive heart failure Hypertension Prostate carcinoma Sibling Chronic obstructive pulmonary disease Cerebrovascular accident Social History Social History (Updated 06/17/24 @ 11:11 by Dena Melgoza MA) Social History: Surrogate medical decision maker: Charito Fish, daughter. Code status: Full code. Smoking packs per day: 0.50 Smoking cigarettes per day: 10.0 Years smoked: 40 Smoking pack-years: 20.00 Smoking status: Current every day smoker Tobacco type: cigarettes Second hand tobacco smoke exposure: No Alcohol intake: never Substance use: current Substance use type: crack/cocaine, amphetamines and methamphetamine Last use: 09/10/23 Do You Feel Safe in your Home?: Yes Lack of Transportation: No Lack of Food: Never True Current Housing: I Have Housing Concerned About Future Housing: No Difficulty Paying Gas/Electric Bills: No Difficulty Paying for Meds: No Currently Unemployed: No Education: Grade School Difficulty w/ Childcare or Family Care: No Spiritual care concerns: No Exam Narrative: EXAMINATION OF ORGAN SYSTEMS/BODY AREAS: Constitutional: Vital signs per nursing GENERAL: tearful but otherwise not ill appearing HEAD: Normal with no signs of head trauma. EYES: EOMI, conjunctiva normal ENT: Hearing grossly intact LUNGS: wheezing all lung robles HEART: slightly tachycardic ABD: [Soft], [nontender to palpat
--- NOTE | 2024-07-20 18:35 | PM.IMHP ---
H&P: HPI History of Present Illness Date/Time: 07/20/24 18:35 Chief Complaint: cough PMFSH Past Medical History Medical History (Updated 07/20/24 @ 17:45 by Jaylene Sanchez MD) Anxiety Bipolar disorder Chronic obstructive pulmonary disease Chronic recurrent major depressive disorder Depression Diverticulitis Fibromyalgia History of COPD History of hypertension History of substance abuse Nicotine dependence, cigarettes, with other nicotine-induced disorders Spinal stenosis Tobacco dependence Surgical History Surgical History (System 01/24/24 @ 14:00 by Estrellita Reese) History of ankle surgery History of partial hysterectomy Family History Family History Father Acute myocardial infarction Congestive heart failure Hypertension Prostate carcinoma Sibling Chronic obstructive pulmonary disease Cerebrovascular accident Social History Social History (Updated 06/17/24 @ 11:11 by Dena Melgoza MA) Social History: Surrogate medical decision maker: Charito Fish, daughter. Code status: Full code. Smoking packs per day: 0.50 Smoking cigarettes per day: 10.0 Years smoked: 40 Smoking pack-years: 20.00 Smoking status: Current every day smoker Tobacco type: cigarettes Second hand tobacco smoke exposure: No Alcohol intake: never Substance use: current Substance use type: crack/cocaine, amphetamines and methamphetamine Last use: 09/10/23 Do You Feel Safe in your Home?: Yes Lack of Transportation: No Lack of Food: Never True Current Housing: I Have Housing Concerned About Future Housing: No Difficulty Paying Gas/Electric Bills: No Difficulty Paying for Meds: No Currently Unemployed: No Education: Grade School Difficulty w/ Childcare or Family Care: No Spiritual care concerns: No Meds Home Medications and Allergies Home Medications Medication Instructions Recorded Confirmed Type famotidine 20 mg tablet 20 mg PO BID 01/02/23 06/17/24 History ondansetron 4 mg disintegrating 4 mg PO Q6H PRN Nausea And Vomiting 01/02/23 06/17/24 History tablet tiotropium bromide 18 mcg capsule 1 cap inhalation DAILY 01/02/23 06/17/24 History with inhalation device (Spiriva with HandiHaler) tizanidine 4 mg tablet 4 mg PO Q8H PRN Muscle Spasm 01/02/23 06/17/24 History albuterol sulfate 90 mcg/actuation 2 puff inhalation QID PRN 08/26/23 06/17/24 Rx aerosol inhaler shortness of breath or wheezing #8 grams budesonide-formoterol HFA 160 inhalation 09/12/23 06/17/24 History mcg-4.5 mcg/actuation aerosol inhaler (Symbicort) lisinopril 10 mg tablet mg 09/12/23 06/17/24 History omeprazole 20 mg capsule,delayed mg 09/12/23 06/17/24 History release tiotropium bromide 18 mcg capsule inhalation 09/12/23 06/17/24 History with inhalation device albuterol sulfate 2.5 mg/3 mL 2.5 mg (3 mL) inhalation Q4-6H PRN 06/17/24 06/17/24 Rx (0.083 %) solution for nebulization shortness of breath or wheezing #360 mL brexpiprazole 0.25 mg tablet 0.25 mg PO DAILY 06/17/24 06/17/24 History (Rexulti) bupropion HCl 150 mg tablet,12 hr 150 mg PO DAILY 06/17/24 06/17/24 History sustained-release dextromethorphan-guaifenesin 10 5 ml PO Q6-8H PRN 06/17/24 06/17/24 History mg-100 mg/5 mL oral syrup (Chest Congestion Relief DM) hydroxyzine pamoate 25 mg capsule 25 mg PO DAILY 06/17/24 06/17/24 History prednisone 20 mg tablet 20 mg PO DAILY 06/17/24 06/17/24 History prednisone 10 mg tablet See Rx Instructions PO DAILY #34 07/12/24 Rx tabs varenicline 0.5 mg (11)-1 mg (42) See Rx Instructions PO PER PKG DIR 07/12/24 Rx tablets in a dose pack (Chantix #53 ea Starting Month Box) Allergies Allergy/AdvReac Type Severity Reaction Status Date / Time No Known Allergies Allergy Unknown Verified 06/17/24 11:09 Vital Signs Vital Signs - 24 hr 07/20/24 13:33 07/20/24 16:48
[2024-07-20] MEDS: POTASSIUM CHLORIDE 20 MEQ ER TABLET 40 MEQ PO (18:50)
[2024-07-20] MEDS: SODIUM CHLORIDE 0.9% IV 1,000 ML 999 ML IV CONT (18:50)
[2024-07-20 19:37] LABS: Influenza A QL RT-PCR Negative (Negative); Influenza B QL RT-PCR Negative (Negative); RSV RNA, RT-PCR Negative (Negative); SARS-CoV-2 RNA PCR Negative (Negative)
--- NOTE | 2024-07-20 19:53 | ADMGEN ---
This patient, Nohelia Cyr, was admitted to Medical Room 342-01. Patient/family oriented to hospital policies and general routines including ID bracelet, bed and alarms, visiting hours, pain management, procedures, bathroom and other care routines, personal items, smoking policy, room service/diet, and visiting hours. Information on how to activate the Rapid Response Team has been discussed. Patient/Family are encouraged to report perceived risks to care and to ask questions if they do not understand what they are told or what they should do.
[2024-07-21] VITALS (17 sets, daily range): BP systolic 96–127; BP diastolic 51–72; PULSE 82–101; RESP 17–22; TEMP 36.5–36.6; O2SAT 93–97
--- NOTE | 2024-07-21 00:37 | PM.IMHP ---
H&P: HPI History of Present Illness Date/Time: 07/21/24 00:37 Chief Complaint: SOB Narrative: 59-year-old female with a PMHx: COPD not on home oxygen, HTN, anxiety, polysubstance abuse, here today with complaints of ongoing SOB and dyspnea for the past 3 days. Patient reports ongoing nonproductive dry cough, she admits to using cocaine prior to ED arrival. She denies any close sick contacts. Patient reports history of HTN and admits to noncompliance with medication. ED Work-up reveals: Initial vitals: b/p 146/94, rr 23, pr105, sp02 97% on RA, T97.6: Chest x-ray reveals no acute cardiopulmonary process viral PCR is negative. WB PC was initially elevated 10.2, then recheck it revealed 7.6, hyponatremia 123-K+ 3.2, troponin, ED doc when to go discharge patient when patient began having abrupt coughing episode nonproductive displaying SOB and dyspnea, patient will be admitted under observation in the setting of COPD exacerbation. [facility] Past Medical History Medical History Anxiety Bipolar disorder Chronic obstructive pulmonary disease Chronic recurrent major depressive disorder Depression Diverticulitis Fibromyalgia History of COPD History of hypertension History of substance abuse Nicotine dependence, cigarettes, with other nicotine-induced disorders Spinal stenosis Tobacco dependence Surgical History Surgical History History of ankle surgery History of partial hysterectomy Family History Family History Father Acute myocardial infarction Congestive heart failure Hypertension Prostate carcinoma Sibling Chronic obstructive pulmonary disease Cerebrovascular accident Social History Social History Social History: Surrogate medical decision maker: Charito Fish, daughter. Code status: Full code. Smoking packs per day: 0.5 Smoking cigarettes per day: 10.0 Years smoked: 40 Smoking pack-years: 20.00 Smoking status: Current every day smoker Tobacco type: cigarettes Second hand tobacco smoke exposure: No Alcohol intake: current Drinks per week: 1 Substance use: current Substance use type: crack/cocaine and methamphetamine Last use: 09/10/23 Do You Feel Safe in your Home?: Yes Lack of Transportation: YES Lack of Food: Sometimes True Current Housing: I Have Housing Concerned About Future Housing: No Difficulty Paying Gas/Electric Bills: No Difficulty Paying for Meds: No Currently Unemployed: No Education: High School Diploma/GED Difficulty w/ Childcare or Family Care: No Spiritual care concerns: No Meds Home Medications and Allergies Home Medications Medication Instructions Recorded Confirmed Type famotidine 20 mg tablet 20 mg PO BID 01/02/23 07/20/24 History tiotropium bromide 18 mcg capsule 1 cap inhalation DAILY 01/02/23 07/20/24 History with inhalation device (Spiriva with HandiHaler) tizanidine 4 mg tablet 4 mg PO Q8H PRN Muscle Spasm 01/02/23 07/20/24 History albuterol sulfate 90 mcg/actuation 2 puff inhalation QID PRN 08/26/23 07/20/24 Rx aerosol inhaler shortness of breath or wheezing #8 grams budesonide-formoterol HFA 160 2 inh inhalation BID 09/12/23 07/20/24 History mcg-4.5 mcg/actuation aerosol inhaler (Symbicort) lisinopril 10 mg tablet 10 mg PO DAILY 09/12/23 07/20/24 History omeprazole 20 mg capsule,delayed 20 mg PO DAILY 09/12/23 07/20/24 History release albuterol sulfate 2.5 mg/3 mL 2.5 mg (3 mL) inhalation Q4-6H PRN 06/17/24 07/20/24 Rx (0.083 %) solution for nebulization shortness of breath or wheezing #360 mL brexpiprazole 0.25 mg tablet 0.25 mg PO DAILY 06/17/24 07/20/24 History (Rexulti) bupropion HCl 150 mg tablet,12 hr 150 mg PO DAILY 06/17/24 07/20/24 History sustained-release
[2024-07-21 02:29] LABS: Amphetamine Screen Urine Positive (Negative); Barbiturate Screen Urine Negative (Negative); Benzodiazepines Screen Urine Negative (Negative); Cannabinoid Screen Urine Negative (Negative); Cocaine Screen Urine Positive (Negative); Methadone Screen Urine Negative (Negative); Opiate Screen Urine Negative (Negative); Phencyclidine Screen Urine Negative (Negative)
[2024-07-21 02:34] LABS: Add Urine Microscopic? YES; Appearance Urine Clear (Clear); Bacteria Urine None Seen /hpf; Bilirubin Urine Negative (Negative); Blood Urine Negative (Negative); Color Urine Yellow (Yellow); Glucose Urine UA Trace mg/dL (Negative); Ketones Urine Negative (Negative); Leukocyte Esterase Ur Trace LEU/UL (Negative); Need Manual Microscopic Reviewed; Nitrate Urine Negative (Negative); Non Pathogenic Casts 0-2; Protein Urine Negative (Negative); RBC Urine 0-2 /hpf (0-2); Specific Grav Ur 1.005 (1.001-1.035); Squamous Epithelial Cell Urine None Seen /hpf (Few); WBC Urine 0-5 /hpf (0-3); pH Urine 6.5 (5.0-9.0)
[2024-07-21 02:41] LABS: Hematocrit 32.3 % (37.0-47.0); Hemoglobin 10.7 g/dL (12.0-15.0); Immature Granulocyte Absolute 0.02 K/mm3 (0.00-0.031); Immature Granulocyte Percent A 0.2 % (0-0.5); Lymphocytes Absolute Auto 0.43 K/mm3 (0.9-3.2); Lymphocytes Percent Auto 4.9 % (18.3-44.2); Mean Corpuscular HGB Conc 33.1 g/dl (32-36); Mean Corpuscular Hemoglobin 26.6 pg (26-34); Mean Corpuscular Volume 80.3 fl (80-100); Mean Platelet Volume 8.4 fl (7.4-10.4); Monocytes Absolute Auto 0.3 K/mm3 (0.1-0.6); Monocytes Percent Auto 3.2 % (2.6-8.5); Neutrophils Percent Auto 91.7 % (45.5-73.1); Platelet Count Result 351 k/mm3 (150-375); Red Blood Count 4.02 M/mm3 (4.2-5.4); Red Cell Distribution Width 12.7 % (11.5-14.5); White Blood Count 8.7 K/mm3 (4.5-10.0)
[2024-07-21 02:50] LABS: Alanine Aminotransferase 18 U/L (6-35); Albumin Level 3.7 g/dL (3.5-5.1); Alkaline Phosphatase 85 U/L (38-126); Anion Gap 8 mmol/L (4-12); Aspartate Amino Transferase 19 U/L (14-36); Bilirubin,Total 0.4 mg/dL (0.2-1.3); Blood Urea Nitrogen 6 mg/dL (7-17); Calcium 8.7 mg/dL (8.4-10.2); Carbon Dioxide 25 mmol/L (22-30); Chloride 96 mmol/L (98-107); Estimated CRCL calculation 85 ml/min; Estimated Glomerular Filt Rate > 60; Glucose 142 mg/dL (65-110); Sodium 129 mmol/L (137-145)
--- NOTE | 2024-07-21 04:14 | PC.NURSE ---
Patient requesting breathing treatment. Resp therapist was made aware by phone.
[2024-07-21] MEDS: IPRATROPIUM 0.5 MG/ALBUTEROL SULFATE 2.5 MG AMPUL.NEB 3 ML INHALATION ×4 (04:45→20:48)
[2024-07-21] MEDS: PANTOPRAZOLE 40 MG TABLET PO (08:21)
[2024-07-21] MEDS: AZITHROMYCIN 250 MG TABLET 500 MG PO (08:21)
[2024-07-21] MEDS: FERROUS SULFATE 325 MG TABLET DR PO (08:21)
[2024-07-21] MEDS: lisinopriL 10 MG TABLET PO (08:21)
[2024-07-21] MEDS: hydrOXYzine pamoate 25 MG CAPSULE PO (08:21)
[2024-07-21] MEDS: FLUTICASONE/SALMETEROL 115-21 MCG INHALER 1 PUFF 2 PUFF INHALATION ×2 (09:05→20:50)
[2024-07-21] MEDS: UMECLIDINIUM BROMIDE 62.5 MCG ELLIPTA 1 PUFF INHALATION (09:06)
--- NOTE | 2024-07-21 09:17 | PM.IMPN ---
Progress Note: A&P Assessment and Plan (1) Personal history of nicotine dependence: Code(s): Z87.891 - Personal history of nicotine dependence Status: Acute Assessment and Plan: -ongoing -declines any quit smoking aids at this time (2) COPD exacerbation: Code(s): J44.1 - Chronic obstructive pulmonary disease with (acute) exacerbation Status: Acute Assessment and Plan: ? COPD, stable, acute exacerbation ? continue telemetry monitoring ? continue oxygen titration keep Spo2 >93% ? continue Duoneb tx q 4hrs as needed for wheezing or SOB ? activity as tolerated ? check vitals q 4 hrs ? -check sputum culture ? check urine strep/legionella ? start Azithromycin 500mg p.o. ? start Ceftriaxone 1gm q 24 hrs (3) Hyponatremia: Code(s): E87.1 - Hypo-osmolality and hyponatremia Status: Acute Assessment and Plan: -oral replacement given in the ED- 0.9 ns - increased from 123-129 today -07/21 -continue monitor daily BMP (4) Polysubstance abuse: Code(s): F19.10 - Other psychoactive substance abuse, uncomplicated Status: Acute Assessment and Plan: discussed and pt interested in doing rehab again -will provide resources for her to utilize once discharged (5) Cocaine use: Code(s): F14.90 - Cocaine use, unspecified, uncomplicated Status: Acute Assessment and Plan: -chronic ongoing -patient admits to using cocaine prior to admission -initiate safety plan check patient's belongings -continue telemetry monitoring -EKG p.r.n. 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 Patient reports ongoing nonproductive dry cough, she admits to using cocaine prior to ED arrival. She denies any close sick contacts. Patient reports history of HTN and admits to noncompliance with medication. ED Work-up reveals: Initial vitals: b/p 146/94, rr 23, pr105, sp02 97% on RA, T97.6: Chest x-ray reveals no acute cardiopulmonary process viral PCR is negative. WB PC was initially elevated 10.2, then recheck it revealed 7.6, hyponatremia 123-K+ 3.2, troponin, ED doc when to go discharge patient when patient began having abrupt coughing episode nonproductive displaying SOB and dyspnea, patient will be admitted under observation in the setting of COPD exacerbation. 07/21- pt is seen and examined. she is doing fairly well= very congested and coughing but denies any worsening of her symptoms. tried rehab in the past for drug abuse and interested in trying again- will ask care coordination to provide resources. Review of Systems Constitutional: Constitutional: Denies chills ENT: Reports nasal congestion Cardiovascular: Cardiovascular: Denies chest pain Respiratory: Respiratory: Reports chest congestion, Reports cough and Reports dyspnea on exertion Gastrointestinal: Gastrointestinal: Denies abdominal pain Genitourinary: Genitourinary: Denies hematuria Musculoskeletal: Musculoskeletal: Reports back pain Comments: chronic Objective Data Vital Signs Vital Signs: Vital Signs - 24 hr 07/20/24 13:33 07/20/24 16:48 07/20/24 16:48 Temperature 98.2 F Pulse Rate 114 H 119 H Respiratory Rate 24 H Blood Pressure 157/102 H Pulse Oximetry 98 98 Oxygen Delivery Room Air Room Air Fraction of Inspired Oxygen 07/20/24 17:08 07/20/24 17:59 07/20/24 17:59 Temperature Pulse Rate 107 H 106 H Respiratory Rate 23 H 20 Blood Pressure Pulse Oximetry 97 Oxygen Delivery Room Air Fraction of Inspired Oxyg
[2024-07-21] MEDS: ACETAMINOPHEN 325 MG TABLET 650 MG PO (13:53)
[2024-07-21] MEDS: TIZANIDINE HCL 4 MG TABLET PO (13:53)
[2024-07-21] MEDS: BENZOCAINE/MENTHOL (*BKC) 18 EA LOZENGE 1 LOZENGE PO (17:12)
[2024-07-21] MEDS: BENZONATATE 100 MG CAPSULE PO (17:12)
[2024-07-22] VITALS (18 sets, daily range): BP systolic 98–142; BP diastolic 64–78; PULSE 83–103; RESP 14–20; TEMP 36.3–36.8; O2SAT 92–97
[2024-07-22] MEDS: IPRATROPIUM 0.5 MG/ALBUTEROL SULFATE 2.5 MG AMPUL.NEB 3 ML INHALATION ×4 (02:54→19:32)
[2024-07-22 06:13] LABS: Basophils Percent Auto 0.4 % (0.2-1.2); Eosinophils Absolute Auto 0.1 K/mm3 (0-0.3); Eosinophils Percent Auto 1.3 % (0-4.4); Hematocrit 32.7 % (37.0-47.0); Hemoglobin 10.1 g/dL (12.0-15.0); Immature Granulocyte Absolute 0.02 K/mm3 (0.00-0.031); Immature Granulocyte Percent A 0.3 % (0-0.5); Lymphocytes Percent Auto 19.9 % (18.3-44.2); Mean Corpuscular HGB Conc 30.9 g/dl (32-36); Mean Corpuscular Hemoglobin 25.6 pg (26-34); Mean Corpuscular Volume 82.8 fl (80-100); Mean Platelet Volume 8.4 fl (7.4-10.4); Monocytes Absolute Auto 0.7 K/mm3 (0.1-0.6); Monocytes Percent Auto 9.5 % (2.6-8.5); Neutrophils Absolute Auto 4.8 K/mm3 (1.3-6.7); Neutrophils Percent Auto 68.6 % (45.5-73.1); Platelet Count Result 355 k/mm3 (150-375); Red Blood Count 3.95 M/mm3 (4.2-5.4); Red Cell Distribution Width 13.2 % (11.5-14.5)
[2024-07-22 06:24] LABS: Alanine Aminotransferase 14 U/L (6-35); Albumin Level 3.3 g/dL (3.5-5.1); Alkaline Phosphatase 89 U/L (38-126); Anion Gap 5 mmol/L (4-12); Aspartate Amino Transferase 17 U/L (14-36); Bilirubin,Total 0.2 mg/dL (0.2-1.3); Blood Urea Nitrogen 5 mg/dL (7-17); Calcium 8.5 mg/dL (8.4-10.2); Carbon Dioxide 28 mmol/L (22-30); Chloride 100 mmol/L (98-107); Estimated CRCL calculation 75 ml/min; Estimated Glomerular Filt Rate > 60; Glucose 91 mg/dL (65-110); Potassium 3.9 mmol/L (3.4-5.0); Sodium 133 mmol/L (137-145)
[2024-07-22] MEDS: UMECLIDINIUM BROMIDE 62.5 MCG ELLIPTA 1 PUFF INHALATION (07:32)
[2024-07-22] MEDS: FLUTICASONE/SALMETEROL 115-21 MCG INHALER 1 PUFF 2 PUFF INHALATION ×2 (07:32→19:32)
[2024-07-22] MEDS: PANTOPRAZOLE 40 MG TABLET PO (08:48)
[2024-07-22] MEDS: FERROUS SULFATE 325 MG TABLET DR PO (08:48)
[2024-07-22] MEDS: lisinopriL 10 MG TABLET PO (08:48)
[2024-07-22] MEDS: hydrOXYzine pamoate 25 MG CAPSULE PO (08:48)
[2024-07-22] MEDS: AZITHROMYCIN 250 MG TABLET 500 MG PO (08:48)
[2024-07-22] MEDS: ACETAMINOPHEN 325 MG TABLET 650 MG PO ×2 (08:52→17:44)
[2024-07-22] MEDS: TIZANIDINE HCL 4 MG TABLET PO ×2 (08:52→20:09)
--- NOTE | 2024-07-22 10:08 | PM.IMPN ---
Progress Note: A&P Assessment and Plan (1) Personal history of nicotine dependence: Code(s): Z87.891 - Personal history of nicotine dependence Status: Acute Assessment and Plan: -ongoing -declines any quit smoking aids at this time (2) COPD exacerbation: Code(s): J44.1 - Chronic obstructive pulmonary disease with (acute) exacerbation Status: Acute Assessment and Plan: ? COPD, stable, acute exacerbation ? continue telemetry monitoring ? continue oxygen titration keep Spo2 >93% ? continue Duoneb tx q 4hrs as needed for wheezing or SOB ? activity as tolerated ? check vitals q 4 hrs ? -check sputum culture ? check urine strep/legionella ? start Azithromycin 500mg p.o. ? start Ceftriaxone 1gm q 24 hrs 07/22- continue antibiotcs monitor resp status -smoking cessation education completed -if stable overnight- anticiptae de escalating antibiotics to PO and discharge in the next day or two (3) Hyponatremia: Code(s): E87.1 - Hypo-osmolality and hyponatremia Status: Acute Assessment and Plan: -oral replacement given in the ED- 0.9 ns - increased from 123-129 today -07/21 -continue monitor daily BMP uptrending - 133 today, 07/22 (4) Polysubstance abuse: Code(s): F19.10 - Other psychoactive substance abuse, uncomplicated Status: Acute Assessment and Plan: discussed and pt interested in doing rehab again -will provide resources for her to utilize once discharged (5) Cocaine use: Code(s): F14.90 - Cocaine use, unspecified, uncomplicated Status: Acute Assessment and Plan: -chronic ongoing -patient admits to using cocaine prior to admission -initiate safety plan check patient's belongings -continue telemetry monitoring -EKG p.r.n. 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 Patient reports ongoing nonproductive dry cough, she admits to using cocaine prior to ED arrival. She denies any close sick contacts. Patient reports history of HTN and admits to noncompliance with medication. ED Work-up reveals: Initial vitals: b/p 146/94, rr 23, pr105, sp02 97% on RA, T97.6: Chest x-ray reveals no acute cardiopulmonary process viral PCR is negative. WB PC was initially elevated 10.2, then recheck it revealed 7.6, hyponatremia 123-K+ 3.2, troponin, ED doc when to go discharge patient when patient began having abrupt coughing episode nonproductive displaying SOB and dyspnea, patient will be admitted under observation in the setting of COPD exacerbation. 07/21- pt is seen and examined. she is doing fairly well= very congested and coughing but denies any worsening of her symptoms. tried rehab in the past for drug abuse and interested in trying again- will ask care coordination to provide resources. 07/22 - pt is seen and examined. Remains on Room air. continue duoneb, antibiotics Review of Systems Constitutional: Constitutional: Denies chills ENT: Reports nasal congestion Cardiovascular: Cardiovascular: Denies chest pain and Reports dyspnea on exertion Respiratory: Respiratory: Reports chest congestion, Reports cough and Reports dyspnea on exertion Gastrointestinal: Gastrointestinal: Denies abdominal pain Genitourinary: Genitourinary: Denies hematuria Musculoskeletal: Musculoskeletal: Reports back pain Exam Const: General: comfortable Resp: Auscultation: diminished lung sounds Other: somewhat coarse Cardio: Rate: regular rate Skin: General skin exam: normal color Neuro: Speech:
[2024-07-22] MEDS: BENZONATATE 100 MG CAPSULE PO (20:09)
[2024-07-22] MEDS: guaiFENesin 12 HR 600 MG TABCR 1200 MG PO (20:09)
[2024-07-23] VITALS (17 sets, daily range): BP systolic 127–129; BP diastolic 79–90; PULSE 78–103; RESP 16–18; TEMP 36.2–36.9; O2SAT 93–100
[2024-07-23] MEDS: IPRATROPIUM 0.5 MG/ALBUTEROL SULFATE 2.5 MG AMPUL.NEB 3 ML INHALATION ×4 (02:07→20:19)
[2024-07-23 05:54] LABS: Basophils Percent Auto 0.3 % (0.2-1.2); Eosinophils Percent Auto 0.7 % (0-4.4); Hematocrit 31.8 % (37.0-47.0); Hemoglobin 9.7 g/dL (12.0-15.0); Immature Granulocyte Absolute 0.02 K/mm3 (0.00-0.031); Immature Granulocyte Percent A 0.3 % (0-0.5); Lymphocytes Percent Auto 23.5 % (18.3-44.2); Mean Corpuscular HGB Conc 30.5 g/dl (32-36); Mean Corpuscular Hemoglobin 25.8 pg (26-34); Mean Corpuscular Volume 84.6 fl (80-100); Mean Platelet Volume 8.4 fl (7.4-10.4); Monocytes Absolute Auto 0.5 K/mm3 (0.1-0.6); Monocytes Percent Auto 8.9 % (2.6-8.5); Neutrophils Absolute Auto 3.9 K/mm3 (1.3-6.7); Neutrophils Percent Auto 66.3 % (45.5-73.1); Platelet Count Result 353 k/mm3 (150-375); Red Blood Count 3.76 M/mm3 (4.2-5.4); Red Cell Distribution Width 13.2 % (11.5-14.5)
[2024-07-23 06:09] LABS: Alanine Aminotransferase 12 U/L (6-35); Albumin Level 3.2 g/dL (3.5-5.1); Alkaline Phosphatase 83 U/L (38-126); Anion Gap 4 mmol/L (4-12); Aspartate Amino Transferase 14 U/L (14-36); Bilirubin,Total 0.1 mg/dL (0.2-1.3); Blood Urea Nitrogen 11 mg/dL (7-17); Calcium 8.6 mg/dL (8.4-10.2); Carbon Dioxide 28 mmol/L (22-30); Chloride 101 mmol/L (98-107); Estimated CRCL calculation 75 ml/min; Estimated Glomerular Filt Rate > 60; Glucose 89 mg/dL (65-110); Potassium 3.9 mmol/L (3.4-5.0); Sodium 133 mmol/L (137-145)
[2024-07-23] MEDS: FLUTICASONE/SALMETEROL 115-21 MCG INHALER 1 PUFF 2 PUFF INHALATION (07:01)
[2024-07-23] MEDS: UMECLIDINIUM BROMIDE 62.5 MCG ELLIPTA 1 PUFF INHALATION (07:01)
[2024-07-23] MEDS: FERROUS SULFATE 325 MG TABLET DR PO (08:50)
[2024-07-23] MEDS: lisinopriL 10 MG TABLET PO (08:51)
[2024-07-23] MEDS: PANTOPRAZOLE 40 MG TABLET PO (08:51)
[2024-07-23] MEDS: hydrOXYzine pamoate 25 MG CAPSULE PO (08:51)
[2024-07-23] MEDS: AZITHROMYCIN 250 MG TABLET 500 MG PO (08:51)
[2024-07-23] MEDS: guaiFENesin 12 HR 600 MG TABCR 1200 MG PO ×2 (08:51→20:27)
--- NOTE | 2024-07-23 09:12 | PM.IMPN ---
Progress Note: A&P Assessment and Plan (1) COPD exacerbation: Code(s): J44.1 - Chronic obstructive pulmonary disease with (acute) exacerbation Status: Acute Assessment and Plan: COPD with acute exacerbation. She is a patient of Dr. Dewitt, pulmonary. Patient reports using nebs at home multiple times a day. Feels more short of breath today than yesterday and is tight/diffusely wheezing. Currently on room air but reports she is more short of breath with activity. She recently had a 6 minute walk test 06/27 and did not require oxygen. Covid/flu/rsv was negative. She received 40mg Prednisone PO on 07/20. --Pulmonary consult --Solumedrol 125mg IV x1 today --Scheduled solumedrol 60mg IV q12 07/24 but may be able to switch to prednisone if improved --Continue duonebs q6, albuterol prn. Continue telemetry monitoring while on frequent albuterol --Continue O2 to keep O2 >93% --Cough is nonproductive and no evidence of pnemonia on chest x-ray, no report of fevers. Urine for strep/legionella are pending from admission. Can dc sputum culture. --Increase tessalon perles 100<200 TID, continue guaifenesin, chlorseptic lozenges for sore throat --Start loratadine daily, has been taking hydroxyzine daily, can continue prn --DC Ceftriaxone, Completed azithromycin 500 daily x3 days today. EKG 07/20 QTc 450, unclear benefit of continuing additional doses --Received smoking cessation education. --Resources for cessation of cocaine/methamphetamine use (2) Personal history of nicotine dependence: Code(s): Z87.891 - Personal history of nicotine dependence Status: Acute Assessment and Plan: -ongoing -declines any quit smoking aids at this time (3) Hyponatremia: Code(s): E87.1 - Hypo-osmolality and hyponatremia Status: Acute Assessment and Plan: 1 Liter of saline given in the ED. Sodium improving and stable the last two days. May be second to COPD and drug use 07/20 123, 07/21 129, 07/22 133, 07/23 133. -continue monitor with BMP (4) Polysubstance abuse: Code(s): F19.10 - Other psychoactive substance abuse, uncomplicated Status: Acute Assessment and Plan: discussed and pt interested in doing rehab again -will provide resources for her to utilize once discharged (5) Cocaine use: Code(s): F14.90 - Cocaine use, unspecified, uncomplicated Status: Acute Assessment and Plan: Chronic, intermittent. Patient admits to using cocaine prior to admission -initiate safety plan check patient's belongings --social work resources as noted (6) Ascending aortic aneurysm: Code(s): I71.21 - Aneurysm of the ascending aorta, without rupture Status: Acute Assessment and Plan: Recent CT 06/17 with an ascending aortic aneurism that measures 4.8cm in diameter --Needs a CT or MR angiography, or echo every 6 months to follow --Blood pressure 98/71-142/64 yesterday, 127/84 07/23 --Avoid cocaine/methamphetamines as discussed Plan VTE Prophylaxis: SCDs, add lovenox DIET: Heart healthy Anticipated hospital stay: observation 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 Diffuse wheezing on exam and coughing. Dry nonproductive cough. Sore throat She reports using albuterol nebs multiple times a day at home for the last 4-5 months, and is using her two inhalers (symbicort, spiriva). Starting IV solumedrol and consulting pulmonary. She reports she is planning to stop cocaine use, realizes that use triggered this hospitalization but otherwise had been clean for 6 months. Flu/covid/rsv is negative. Hold umeclidium while on duonebs. Takes Symbicort 160/4.5, increase advair to 500/50. Also reports trigger for exacerbations is mold and mold is high now, starting loratadine May need another walking O2, but reports she d
[2024-07-23] MEDS: ACETAMINOPHEN 325 MG TABLET 650 MG PO (16:47)
[2024-07-23] MEDS: LORATADINE 10 MG TABLET PO (16:47)
[2024-07-23] MEDS: methylPREDNISolone SOD SUCC 125 MG VIAL IV PUSH (16:50)
[2024-07-23] MEDS: FLUTICASONE/SALMETEROL 230-21 MCG INHALER 1 PUFF 2 PUFF INHALATION (20:20)
[2024-07-23] MEDS: BENZONATATE 100 MG CAPSULE 200 MG PO (20:27)
[2024-07-23] MEDS: TIZANIDINE HCL 4 MG TABLET PO (20:28)
[2024-07-24] VITALS (21 sets, daily range): BP systolic 117–140; BP diastolic 76–80; PULSE 89–111; RESP 17–20; TEMP 36.4–36.8; O2SAT 93–97
[2024-07-24] MEDS: IPRATROPIUM 0.5 MG/ALBUTEROL SULFATE 2.5 MG AMPUL.NEB 3 ML INHALATION ×6 (01:55→23:06)
[2024-07-24 05:41] LABS: Basophils Percent Auto 0.1 % (0.2-1.2); Hemoglobin 10.5 g/dL (12.0-15.0); Immature Granulocyte Absolute 0.03 K/mm3 (0.00-0.031); Immature Granulocyte Percent A 0.4 % (0-0.5); Lymphocytes Percent Auto 5.1 % (18.3-44.2); Mean Corpuscular HGB Conc 30.9 g/dl (32-36); Mean Corpuscular Hemoglobin 25.9 pg (26-34); Mean Corpuscular Volume 83.7 fl (80-100); Monocytes Absolute Auto 0.1 K/mm3 (0.1-0.6); Neutrophils Absolute Auto 7.4 K/mm3 (1.3-6.7); Neutrophils Percent Auto 93.4 % (45.5-73.1); Platelet Count Result 376 k/mm3 (150-375); Red Blood Count 4.06 M/mm3 (4.2-5.4); Red Cell Distribution Width 13.2 % (11.5-14.5); White Blood Count 7.9 K/mm3 (4.5-10.0)
[2024-07-24 05:55] LABS: Alanine Aminotransferase 14 U/L (6-35); Albumin Level 3.7 g/dL (3.5-5.1); Alkaline Phosphatase 79 U/L (38-126); Anion Gap 9 mmol/L (4-12); Aspartate Amino Transferase 18 U/L (14-36); Bilirubin,Total 0.2 mg/dL (0.2-1.3); Blood Urea Nitrogen 12 mg/dL (7-17); Calcium 8.9 mg/dL (8.4-10.2); Carbon Dioxide 26 mmol/L (22-30); Chloride 100 mmol/L (98-107); Estimated CRCL calculation 85 ml/min; Estimated Glomerular Filt Rate > 60; Glucose 152 mg/dL (65-110); Potassium 4.6 mmol/L (3.4-5.0); Sodium 135 mmol/L (137-145)
[2024-07-24] MEDS: methylPREDNISolone SOD SUCC 125 MG VIAL 60 MG IV PUSH (06:10)
[2024-07-24] MEDS: FLUTICASONE/SALMETEROL 230-21 MCG INHALER 1 PUFF 2 PUFF INHALATION (07:01)
--- NOTE | 2024-07-24 08:20 | ECHO_ITS ---
Patient Info Name: Nohelia Cyr Age: 59 years : 1965 Gender: Female Ht: 64 in Wt: 227 lbs BSA: 2.21 m2 HR: 99 bpm BP: 142 / 66 mmHg Heart Rhythm: Tachycardia, Sinus Rhythm Technical Quality: Fair Exam Date: 07/24/2024 9:06 AM Exam Location: Echo Lab Patient Status: Inpatient Admit Date: 07/24/2024 Staff Ordering Physician: Sudeep Delgado MD Test Director: Chris Cortés RDCS Attending Provider: Tamia Jaffe APRN Referring Physician: Danny WANG; Exam Type: CA echo dop color flow w con Study Info Indications - assess LV, RV, and pasp Complete two-dimensional, color flow and Doppler transthoracic echocardiogram is performed with contrast to opacify the left ventricle and to improve the deliniation of the left ventricle endocardial borders. Summary 1. Left ventricular chamber dimension is normal. 2. Left ventricular systolic function is normal, estimated at 65-70%. 3. There is mildly increased left ventricular wall thickness. 4. The left ventricular diastolic function is grade I diastolic dysfunction. 5. Right ventricular systolic function is normal. 6. There is mild aortic valve regurgitation. 7. Estimated pulmonary arterial systolic pressure is 16 mmHg. 8. There is small pericardial effusion. Left Ventricle Left ventricular chamber dimension is normal. Left ventricular systolic function is normal, estimated at 65-70%. There is mildly increased left ventricular wall thickness. The left ventricular diastolic function is grade I diastolic dysfunction. Right Ventricle Right ventricular chamber dimension is normal. Right ventricular systolic function is normal. Left Atria Left atrial chamber dimension is normal. Right Atria Right atrial chamber dimension is normal. Atrial Septum Intact interatrial septum visualized by color flow imaging. Aortic Valve The aortic valve is not well visualized. There is no aortic valve stenosis. There is mild aortic valve regurgitation. Pulmonic Valve The pulmonic valve is not well visualized. Mitral Valve There is trace mitral valve regurgitation. Tricuspid Valve There is trace tricuspid valve regurgitation. Estimated pulmonary arterial systolic pressure is 16 mmHg. Pericardium/Pleural There is small pericardial effusion. Inferior Vena Cava Normal inferior vena cava with >50% collapse upon inspiration consistent with normal right atrial pressure, 3 mmHg. Aorta The aortic root size at the sinus of Valsalva is normal. Left Ventricular Outflow Tract Name Value Normal LVOT 2D LVOT Diameter 1.85 cm LVOT Doppler LVOT Peak Gradient 12 mmHg LVOT Mean Gradient 6 mmHg LVOT VTI 30.24 cm LVOT VTI/AV VTI Ratio 0.98 LVOT Stroke Volume 81.11 ml LVOT CO 7.89 l/min LVOT CI 3.58 L/min/m2 Pulmonic Valve Name Value Normal PV Doppler
--- NOTE | 2024-07-24 08:22 | PM.CNPUL ---
Assessment and Plan Assessment and plan (1) COPD exacerbation: Code(s): J44.1 - Chronic obstructive pulmonary disease with (acute) exacerbation Status: Acute Assessment and Plan: GOLD grade 2 group E COPD patient carries a diagnosis of COPD for 20 years, 45 pack year tobacco use, currently using 6 cigarettes a day, PFTs with small airways disease pattern and mild obstructive abnormality with an FEV1 of 1.64, 77% predicted, positive bronchodilator response, positive hyperinflation and a moderately decreased DLCO that corrects when adjusted for alveolar volume. CT scan on 06/28/2024 with no evidence of centrilobular paraseptal emphysema, right middle lobe atelectasis with patent airways. She is on no home oxygen. she has a history of cocaine and methamphetamine use and was clean for 6 months until she relapsed on 07/19/2024. Patient presents with cough and worsening shortness of breath for 2 days followed by exposure to cocaine and methamphetamine On 07/19/2024. She presents with diffuse wheezing, shortness of breath. I will treat her for COPD exacerbation. patient had some symptoms of an exacerbation but clearly they cocaine and methamphetamine smoking contributed to the exacerbation. Plan: I will send a respiratory pathogen panel to [facility] looking for 21 respiratory pathogens. I will place the patient on Solu-Medrol 40 IV q.6 hours, DuoNebs q.4 hours, guaifenesin 1200 mg p.o. b.i.d., continue 10 mg Claritin 10 mg q.day. I will check a rest RA ABG to assess for hypercarbic respiratory failure. I will check a D-dimer and if this is positive I will perform a CT angiogram of the chest. If this is negative will perform CT scan of the chest to assess for any underlying pneumonia and follow up on her right middle lobe atelectasis. She complained of right leg swelling when she came to the hospital that is now resolved. I will obtain a lower extremity Doppler. I will repeat a BNP and check an echocardiogram to assess her LV function, RV function, valve function and PASP. Discussed with Adelina Rios, will follow with you. (2) Polysubstance abuse: Code(s): F19.10 - Other psychoactive substance abuse, uncomplicated Status: Acute Assessment and Plan: 07/24/24: patient has a history of cocaine and methamphetamine inhalation. She smoked these on 07/19/2024 but before that she was clean for 6 months. She tells me she will not restart these drugs on discharge. (3) Daytime hypersomnia: Code(s): G47.10 - Hypersomnia, unspecified Status: Acute Assessment and Plan: 09/11/2002: Sleep study with MSLT DIAGNOSTIC IMPRESSIONS: This sleep study did not reveal any evidence of obstructive sleep apnea. Overall RDI was only 1.5 events per hour of sleep. However, heavy snoring was noted as well as periodic leg movements, both of which disrupted sleep somewhat. Mild desaturations were also noted. The patient went on to multiple sleep latency testing, which consisted of 5 20-minute naps during the day. Average sleep latency was 8.7 minutes. During these naps REM was not achieved. As a result, narcolepsy could not be diagnosed on the basis of this testing. The short sleep latency may suggest idiopathic hypersomnolence. This may be secondary to possible upper airway resistance syndrome. The patient did have some minor oxygen desaturations and heavy snoring. The patient may benefit, because of her sleepiness, with a possible oral device to advance the mandible. Positional therapy, i.e., avoiding the supine position, would also benefit as well as weight loss. If these conservative measures do not help, the patient may benefit with a CPAP titration. 07/24/24: patient states she snores, talks in her sleep, wakes up unrefreshed. She is obese with a BMI of 39.1. Plan: I will obtain overnight oximetry on room air. Patient will need outpatient split night sleep study. History of Present Illness History of Pre
[2024-07-24] MEDS: ENOXAPARIN 40 MG/0.4 ML SYRINGE SUB-Q (08:49)
[2024-07-24] MEDS: PANTOPRAZOLE 40 MG TABLET PO (08:49)
[2024-07-24 08:50] LABS: Base Excess ABG 1.5 mEq/l (+/-2.0); Fractional Inspired Oxygen 21 %; HCO3 ABG 25.2 mEq/l (22.0-26.0); Oxygen Content ABG 14.5 %vol (16.0-22.0); Oxygen Saturation ABG 91.5 % (95.0-100.0); Oxyhemoglobin 90.4 % THb (90.0-100.0); PCO2 ABG 36.7 mmHg (35.0-45.0); PO2 ABG 57.8 mmHg (80.0-100.0); PO2 FiO2 Ratio Arterial Blood 2.75 %; Total Hemoglobin 11.4 g/dL (12.0-18.0); pH ABG 7.455 (7.350-7.450)
[2024-07-24] MEDS: hydrOXYzine pamoate 25 MG CAPSULE PO (08:50)
[2024-07-24] MEDS: lisinopriL 10 MG TABLET PO (08:50)
[2024-07-24] MEDS: guaiFENesin 12 HR 600 MG TABCR 1200 MG PO ×2 (08:50→20:30)
[2024-07-24] MEDS: FERROUS SULFATE 325 MG TABLET DR PO (08:50)
[2024-07-24] MEDS: LORATADINE 10 MG TABLET PO (08:50)
[2024-07-24 08:51] LABS: Device ROOM AIR; Modified Allen's Test Pass; Site Drawn RIGHT RADIAL
[2024-07-24] MEDS: TIZANIDINE HCL 4 MG TABLET PO ×2 (08:53→18:03)
--- NOTE | 2024-07-24 09:04 | PM.IMPN ---
Progress Note: A&P Assessment and Plan (1) COPD exacerbation: Code(s): J44.1 - Chronic obstructive pulmonary disease with (acute) exacerbation Status: Acute Assessment and Plan: COPD with acute exacerbation. She is a patient of Dr. Dewitt, pulmonary. Patient reports using nebs at home multiple times a day. Feels more short of breath today than yesterday and is tight/diffusely wheezing. Currently on room air but reports she is more short of breath with activity. She recently had a 6 minute walk test 06/27 and did not require oxygen. Covid/flu/rsv was negative. She received 40mg Prednisone PO on 07/20. Seen by pulmonary this AM with recommendations for D dimer, CT chest, duonebs q 4, ECHO, bilateral EL dopplers, and send out 21 respiratory pathogens Started on Solu-Medrol 40 IV q.6 hours, DuoNebs q.4 hours, guaifenesin 1200 mg p.o. b.i.d., continue 10 mg Claritin 10 mg q.day. --Increase tessalon perles 100<200 TID, continue guaifenesin, chlorseptic lozenges for sore throat --Start loratadine daily, has been taking hydroxyzine daily, can continue prn --DC Ceftriaxone, Completed azithromycin 500 daily x3 days today. EKG 07/20 QTc 450, unclear benefit of continuing additional doses --Received smoking cessation education. --Resources for cessation of cocaine/methamphetamine use 07/24 CT chest shows Atelectatic changes in the right middle lobe unchanged from previous examination. Venous Doppler shows no DVT (2) Personal history of nicotine dependence: Code(s): Z87.891 - Personal history of nicotine dependence Status: Acute Assessment and Plan: -ongoing -declines any quit smoking aids at this time (3) Hyponatremia: Code(s): E87.1 - Hypo-osmolality and hyponatremia Status: Acute Assessment and Plan: 1 Liter of saline given in the ED. Sodium improving and stable the last two days. May be second to COPD and drug use 07/20 123, 07/21 129, 07/22 133, 07/23 133, 07/24 135-improving -continue monitor with BMP (4) Polysubstance abuse: Code(s): F19.10 - Other psychoactive substance abuse, uncomplicated Status: Acute Assessment and Plan: discussed and pt interested in doing rehab again -will provide resources for her to utilize once discharged (5) Cocaine use: Code(s): F14.90 - Cocaine use, unspecified, uncomplicated Status: Acute Assessment and Plan: Chronic, intermittent. Patient admits to using cocaine prior to admission -initiate safety plan check patient's belongings --social work resources as noted (6) Ascending aortic aneurysm: Code(s): I71.21 - Aneurysm of the ascending aorta, without rupture Status: Acute Assessment and Plan: Recent CT 06/17 with an ascending aortic aneurism that measures 4.8cm in diameter --Needs a CT or MR angiography, or echo every 6 months to follow --Blood pressure 98/71-142/64 yesterday, 127/84 07/23 --Avoid cocaine/methamphetamines as discussed Plan VTE Prophylaxis: SCDs, add lovenox DIET: Heart healthy Anticipated hospital stay: observation Code Status: paradi operator Spent With Patient Time with patient: Greater than 35 minutes Subjective Date/time seen: 07/24/24 09:04 Interval history: Seen by pulmonary this AM with recommendations for D dimer, CTA vs CT chest, duonebs q 4, ECHO, bilateral EL dopplers, and send out 21 respiratory pathogens Started on Solu-Medrol 40 IV q.6 hours, DuoNebs q.4 hours, guaifenesin 1200 mg p.o. b.i.d., continue 10 mg Claritin 10 mg q.day. No acute events overnight, patient states that her breathing is better this morning after breathing treatment Review of Systems Constitutional: Constitutional: Denies chills ENT: Reports nasal congestion Cardiovascular: Cardiovascular: Denies chest pain and Reports dyspnea on exertion Respiratory: Respiratory: Reports chest congestion, Reports cough and Reports dyspnea on exert
[2024-07-24 09:09] LABS: NT Pro B Type Natriuretic Pept 243 pg/mL (19.9-100)
[2024-07-24 09:22] LABS: D Dimer 0.39 ug/mL (<0.48)
[2024-07-24] MEDS: PERFLUTREN LIPID MICROSPHERES 1.5 ML VIAL DILUTED TO 10 ML TOTAL VOLUME IV PUSH (09:25)
[2024-07-24 09:31] LABS: Thyroid Stimulating Hormone 0.065 uIU/mL (0.465-4.680)
[2024-07-24 09:50] LABS: Free T4 Free Thyroxine 1.43 ng/mL (0.78-2.19)
--- NOTE | 2024-07-24 10:10 | IVDEFINITY ---
Prior to administration of IV Definity the patient was educated on the risks and benefits of the imaging enhancing agent including potential adverse side effects. The patient verbalized understanding. Allergies were verified. No exclusion criteria were identified and at least one of the following inclusion criteria were met: 1) physician request, 2) patient technically difficult to image (per the [place] [employer] guidelines of two or more segments not discernable within the apical view), or 3) questionable left ventricular function. ?
[2024-07-24] MEDS: methylPREDNISolone SOD SUCC 40 MG VIAL IV PUSH ×3 (13:01→23:14)
[2024-07-24 18:34] LABS: Pneumococcal Antigen Urine DETECTED
[2024-07-24] MEDS: BENZONATATE 100 MG CAPSULE 200 MG PO (20:30)
[2024-07-25] VITALS (11 sets, daily range): BP systolic 110–120; BP diastolic 68–88; PULSE 87–104; RESP 18–20; TEMP 36.2–37; O2SAT 94–97
--- NOTE | 2024-07-25 03:33 | PCRCNOTE ---
0400 TX skipped due to sleep study.
[2024-07-25] MEDS: methylPREDNISolone SOD SUCC 40 MG VIAL IV PUSH (04:55)
[2024-07-25 06:06] LABS: Alanine Aminotransferase 14 U/L (6-35); Albumin Level 3.6 g/dL (3.5-5.1); Alkaline Phosphatase 84 U/L (38-126); Anion Gap 7 mmol/L (4-12); Aspartate Amino Transferase 16 U/L (14-36); Bilirubin,Total 0.2 mg/dL (0.2-1.3); Blood Urea Nitrogen 17 mg/dL (7-17); Calcium 8.8 mg/dL (8.4-10.2); Carbon Dioxide 24 mmol/L (22-30); Chloride 103 mmol/L (98-107); Estimated CRCL calculation 76 ml/min; Estimated Glomerular Filt Rate > 60; Glucose 151 mg/dL (65-110); Potassium 4.5 mmol/L (3.4-5.0); Sodium 134 mmol/L (137-145)
[2024-07-25 06:11] LABS: Basophils Percent Auto 0.1 % (0.2-1.2); Eosinophils Percent Auto 0.1 % (0-4.4); Hematocrit 33.6 % (37.0-47.0); Hemoglobin 10.4 g/dL (12.0-15.0); Immature Granulocyte Absolute 0.12 K/mm3 (0.00-0.031); Immature Granulocyte Percent A 0.8 % (0-0.5); Lymphocytes Percent Auto 4.1 % (18.3-44.2); Mean Corpuscular Hemoglobin 25.9 pg (26-34); Mean Corpuscular Volume 83.8 fl (80-100); Mean Platelet Volume 8.2 fl (7.4-10.4); Monocytes Absolute Auto 0.3 K/mm3 (0.1-0.6); Neutrophils Absolute Auto 13.6 K/mm3 (1.3-6.7); Neutrophils Percent Auto 92.9 % (45.5-73.1); Platelet Count Result 413 k/mm3 (150-375); Red Blood Count 4.01 M/mm3 (4.2-5.4); Red Cell Distribution Width 13.2 % (11.5-14.5); White Blood Count 14.6 K/mm3 (4.5-10.0)
[2024-07-25] MEDS: IPRATROPIUM 0.5 MG/ALBUTEROL SULFATE 2.5 MG AMPUL.NEB 3 ML INHALATION ×3 (07:21→21:34)
--- NOTE | 2024-07-25 08:16 | PM.PNPUL ---
Progress Note: A&P Assessment and Plan (1) COPD exacerbation: Code(s): J44.1 - Chronic obstructive pulmonary disease with (acute) exacerbation Status: Acute Assessment and Plan: GOLD grade 2 group E COPD patient carries a diagnosis of COPD for 20 years, 45 pack year tobacco use, currently using 6 cigarettes a day, PFTs with small airways disease pattern and mild obstructive abnormality with an FEV1 of 1.64, 77% predicted, positive bronchodilator response, positive hyperinflation and a moderately decreased DLCO that corrects when adjusted for alveolar volume. CT scan on 06/28/2024 with no evidence of centrilobular paraseptal emphysema, right middle lobe atelectasis with patent airways. She is on no home oxygen. she has a history of cocaine and methamphetamine use and was clean for 6 months until she relapsed on 07/19/2024. Patient presents with cough and worsening shortness of breath for 2 days followed by exposure to cocaine and methamphetamine On 07/19/2024. She presents with diffuse wheezing, shortness of breath. I will treat her for COPD exacerbation. patient had some symptoms of an exacerbation but clearly they cocaine and methamphetamine smoking contributed to the exacerbation. Plan: I will send a respiratory pathogen panel to [facility] looking for 21 respiratory [address] I will place the patient on Solu-Medrol 40 IV q.6 hours, DuoNebs q.4 hours, guaifenesin 1200 mg p.o. b.i.d., continue 10 mg Claritin 10 mg q.day. I will check a rest RA ABG to assess for hypercarbic respiratory failure. I will check a D-dimer and if this is positive I will perform a CT angiogram of the chest. If this is negative will perform CT scan of the chest to assess for any underlying pneumonia and follow up on her right middle lobe atelectasis. She complained of right leg swelling when she came to the hospital that is now resolved. I will obtain a lower extremity Doppler. I will repeat a BNP and check an echocardiogram to assess her LV function, RV function, valve function and PASP. Later in the day patient's D-dimer was negative. CT scan of the chest showed no pneumonia, no interstitial lung disease, no emphysema, chronic atelectasis right middle lobe with no change compared to prior CT on 06/28/2024. Rest room air arterial blood gas 7.46/37/58. Echocardiogram with LVEF 65-70, grade 1 diastolic dysfunction, normal RV size and function, normal right atrial size, PASP 16. Lower extremity Dopplers were negative for DVT. 07/25/24: Overall the patient is improved and says that she is feeling better after a good night's sleep. She states that her breathing is normal, her daily wheezing is back to its baseline, her shortness of breath is at his baseline she has a dry cough with no phlegm and no hemoptysis. She is afebrile. She was walking in her room. room air saturation 96%. White blood cell count is 14.6, creatinine is 0.8. she has improved but persistent expiratory wheezes bilaterally. Urine pneumococcal antigen is positive Plan: Patient continues to improve. Will change her to prednisone 40 mg p.o. and discontinue IV steroids (day 3 steroids). Will change her DuoNebs from q.6 hours to q.4 hours. no infectious complaints, afebrile, leukocytosis likely related to IV steroids. Although her urine pneumococcal antigen is positive she does not appear infected and has no evidence of any new infiltrates on her CT scan. She received 3 days of ceftriaxone and azithromycin I do not feel a need for additional antibiotics at this time. She requires no oxygen at night. smoking and illicit drug use cessation counseling provided. if she remains clinically stable anticipate discharge on 07/26 on these pulmonary medications: Prednisone 40 mg PO Q day, last dose 07/27 Symbicort 160-4.5 at 2 puffs b.i.d.. Spiriva HandiHaler 18 mcg 1 puff q.day Rescue albuterol 2 puffs q.4 hours and 2.5 mg nebulized q.4 hours p.r.n. shortness of breath or whe
--- NOTE | 2024-07-25 08:28 | PM.IMPN ---
Progress Note: A&P Assessment and Plan (1) COPD exacerbation: Code(s): J44.1 - Chronic obstructive pulmonary disease with (acute) exacerbation Status: Acute Assessment and Plan: COPD with acute exacerbation. She is a patient of Dr. Dewitt, pulmonary. Started on prednisone l 40 po, DuoNebs q.4 hours, guaifenesin 1200 mg p.o. b.i.d., continue 10 mg Claritin 10 mg q.day. Continue tessalon perles 200 TID, continue guaifenesin, chlorseptic lozenges for sore throat, loratadine daily, has been taking hydroxyzine daily, can continue prn Completed azithromycin 500 daily x3 days Received smoking cessation education. Resources for cessation of cocaine/methamphetamine use 07/24 CT chest shows Atelectatic changes in the right middle lobe unchanged from previous examination. Venous Doppler shows no DVT Patient had an overnight oximetry on room air with recording duration 6 hours and 17 minutes. Average saturation 93%. Low saturation 78%. Time with saturation less than or equal to 88% was 1 minute. Oxygen desaturation index 9.5. (2) Personal history of nicotine dependence: Code(s): Z87.891 - Personal history of nicotine dependence Status: Acute Assessment and Plan: -ongoing -declines any quit smoking aids at this time (3) Hyponatremia: Code(s): E87.1 - Hypo-osmolality and hyponatremia Status: Acute Assessment and Plan: 1 Liter of saline given in the ED. Sodium improving and stable. May be second to COPD and drug use 07/20 123, 07/21 129, 07/22 133, 07/23 133, 07/24 135-improving -continue monitor with BMP (4) Polysubstance abuse: Code(s): F19.10 - Other psychoactive substance abuse, uncomplicated Status: Acute Assessment and Plan: discussed and pt interested in doing rehab again -will provide resources for her to utilize once discharged (5) Cocaine use: Code(s): F14.90 - Cocaine use, unspecified, uncomplicated Status: Acute Assessment and Plan: Chronic, intermittent. Patient admits to using cocaine prior to admission -initiate safety plan check patient's belongings --social work resources as noted (6) Ascending aortic aneurysm: Code(s): I71.21 - Aneurysm of the ascending aorta, without rupture Status: Acute Assessment and Plan: Recent CT 06/17 with an ascending aortic aneurism that measures 4.8cm in diameter --Needs a CT or MR angiography, or echo every 6 months to follow --Blood pressure 98/71-142/64 yesterday, 127/84 07/23 --Avoid cocaine/methamphetamines as discussed (7) Leukocytosis: Code(s): D72.829 - Elevated white blood cell count, unspecified Status: Acute Assessment and Plan: Patient has no signs of respiratory infection, UTI infection, soft tissue infection, leukocytosis could be reactive Repeat CBC tomorrow. Plan VTE Prophylaxis: SCDs, add lovenox DIET: Heart healthy Anticipated hospital stay: observation Code Status: full Patient will likely discharge home tomorrow Time Spent With Patient Time with patient: Greater than 35 minutes Subjective Date/time seen: 07/25/24 08:28 Interval history: 59-year-old with a history of hypertension, anxiety, polysubstance abuse and COPD for 20 years. Patient had an overnight oximetry on room air with recording duration 6 hours and 17 minutes. Average saturation 93%. Low saturation 78%. Time with saturation less than or equal to 88% was 1 minute. Oxygen desaturation index 9.5. WBC 14.6 Left ventricular systolic function is normal, estimated at 65-70%. The left ventricular diastolic function is grade I diastolic dysfunction. There is mild aortic valve regurgitation. Patient has be euvolemic, recommendations for patient follow-up outpatient with Cardiology. Review of Systems Constitutional: Constitutional: Denies chills ENT: Reports nasal congestion Cardiovascular: Cardiovascular: Denies
[2024-07-25] MEDS: lisinopriL 10 MG TABLET PO (08:47)
[2024-07-25] MEDS: LORATADINE 10 MG TABLET PO (08:47)
[2024-07-25] MEDS: PANTOPRAZOLE 40 MG TABLET PO (08:47)
[2024-07-25] MEDS: predniSONE 20 MG TABLET 40 MG PO (08:47)
[2024-07-25] MEDS: guaiFENesin 12 HR 600 MG TABCR 1200 MG PO ×2 (08:47→20:08)
[2024-07-25] MEDS: hydrOXYzine pamoate 25 MG CAPSULE PO (08:47)
[2024-07-25] MEDS: ENOXAPARIN 40 MG/0.4 ML SYRINGE SUB-Q (08:48)
[2024-07-25] MEDS: buPROPion HCL SR (12 HR) 150 MG TAB PO (08:48)
[2024-07-25] MEDS: FERROUS SULFATE 325 MG TABLET DR PO (08:48)
[2024-07-25] MEDS: TIZANIDINE HCL 4 MG TABLET PO ×2 (08:58→18:10)
[2024-07-25] MEDS: ACETAMINOPHEN 325 MG TABLET 650 MG PO (18:09)
[2024-07-26 04:53] VITALS: BP 145/89; PULSE 81; RESP 18; TEMP 36.6; O2SAT 98
[2024-07-26 06:02] LABS: Basophils Percent Auto 0.1 % (0.2-1.2); Hematocrit 33.6 % (37.0-47.0); Hemoglobin 10.7 g/dL (12.0-15.0); Immature Granulocyte Absolute 0.18 K/mm3 (0.00-0.031); Immature Granulocyte Percent A 1.4 % (0-0.5); Lymphocytes Absolute Auto 1.65 K/mm3 (0.9-3.2); Lymphocytes Percent Auto 12.8 % (18.3-44.2); Mean Corpuscular HGB Conc 31.8 g/dl (32-36); Mean Corpuscular Hemoglobin 26.6 pg (26-34); Mean Corpuscular Volume 83.4 fl (80-100); Mean Platelet Volume 8.1 fl (7.4-10.4); Monocytes Absolute Auto 0.7 K/mm3 (0.1-0.6); Monocytes Percent Auto 5.6 % (2.6-8.5); Neutrophils Absolute Auto 10.3 K/mm3 (1.3-6.7); Neutrophils Percent Auto 80.1 % (45.5-73.1); Platelet Count Result 387 k/mm3 (150-375); Red Blood Count 4.03 M/mm3 (4.2-5.4); Red Cell Distribution Width 13.3 % (11.5-14.5); White Blood Count 12.9 K/mm3 (4.5-10.0)
[2024-07-26 06:12] LABS: Alanine Aminotransferase 12 U/L (6-35); Albumin Level 3.5 g/dL (3.5-5.1); Alkaline Phosphatase 76 U/L (38-126); Anion Gap 5 mmol/L (4-12); Aspartate Amino Transferase 17 U/L (14-36); Bilirubin,Total 0.3 mg/dL (0.2-1.3); Blood Urea Nitrogen 21 mg/dL (7-17); Calcium 8.7 mg/dL (8.4-10.2); Carbon Dioxide 26 mmol/L (22-30); Chloride 103 mmol/L (98-107); Estimated CRCL calculation 67 ml/min; Estimated Glomerular Filt Rate > 60; Glucose 93 mg/dL (65-110); Potassium 4.4 mmol/L (3.4-5.0); Sodium 134 mmol/L (137-145)
[2024-07-26 07:22] VITALS: PULSE 84; RESP 20; O2SAT 96
[2024-07-26] MEDS: IPRATROPIUM 0.5 MG/ALBUTEROL SULFATE 2.5 MG AMPUL.NEB 3 ML INHALATION (07:22)
[2024-07-26 07:32] VITALS: PULSE 90; RESP 20
[2024-07-26] MEDS: FERROUS SULFATE 325 MG TABLET DR PO (08:27)
[2024-07-26] MEDS: guaiFENesin 12 HR 600 MG TABCR 1200 MG PO (08:27)
[2024-07-26] MEDS: hydrOXYzine pamoate 25 MG CAPSULE PO (08:27)
[2024-07-26] MEDS: predniSONE 20 MG TABLET 40 MG PO (08:27)
[2024-07-26] MEDS: buPROPion HCL SR (12 HR) 150 MG TAB PO (08:27)
[2024-07-26] MEDS: lisinopriL 10 MG TABLET PO (08:27)
[2024-07-26] MEDS: ENOXAPARIN 40 MG/0.4 ML SYRINGE SUB-Q (08:27)
[2024-07-26] MEDS: LORATADINE 10 MG TABLET PO (08:27)
[2024-07-26] MEDS: PANTOPRAZOLE 40 MG TABLET PO (08:27)
--- NOTE | 2024-07-26 09:56 | PM.PNPUL ---
Progress Note: A&P Assessment and Plan (1) COPD exacerbation: Code(s): J44.1 - Chronic obstructive pulmonary disease with (acute) exacerbation Status: Acute Assessment and Plan: GOLD grade 2 group E COPD patient carries a diagnosis of COPD for 20 years, 45 pack year tobacco use, currently using 6 cigarettes a day, PFTs with small airways disease pattern and mild obstructive abnormality with an FEV1 of 1.64, 77% predicted, positive bronchodilator response, positive hyperinflation and a moderately decreased DLCO that corrects when adjusted for alveolar volume. CT scan on 06/28/2024 with no evidence of centrilobular paraseptal emphysema, right middle lobe atelectasis with patent airways. She is on no home oxygen. she has a history of cocaine and methamphetamine use and was clean for 6 months until she relapsed on 07/19/2024. Patient presents with cough and worsening shortness of breath for 2 days followed by exposure to cocaine and methamphetamine On 07/19/2024. She presents with diffuse wheezing, shortness of breath. I will treat her for COPD exacerbation. patient had some symptoms of an exacerbation but clearly they cocaine and methamphetamine smoking contributed to the exacerbation. Plan: I will send a respiratory pathogen panel to [facility] looking for 21 respiratory [address] place the patient on Solu-Medrol 40 IV q.6 hours, DuoNebs q.4 hours, guaifenesin 1200 mg p.o. b.i.d., continue 10 mg Claritin 10 mg q.day. I will check a rest RA ABG to assess for hypercarbic respiratory failure. I will check a D-dimer and if this is positive I will perform a CT angiogram of the chest. If this is negative will perform CT scan of the chest to assess for any underlying pneumonia and follow up on her right middle lobe atelectasis. She complained of right leg swelling when she came to the hospital that is now resolved. I will obtain a lower extremity Doppler. I will repeat a BNP and check an echocardiogram to assess her LV function, RV function, valve function and PASP. Later in the day patient's D-dimer was negative. CT scan of the chest showed no pneumonia, no interstitial lung disease, no emphysema, chronic atelectasis right middle lobe with no change compared to prior CT on 06/28/2024. Rest room air arterial blood gas 7.46/37/58. Echocardiogram with LVEF 65-70, grade 1 diastolic dysfunction, normal RV size and function, normal right atrial size, PASP 16. Lower extremity Dopplers were negative for DVT. 07/25/24: Overall the patient is improved and says that she is feeling better after a good night's sleep. She states that her breathing is normal, her daily wheezing is back to its baseline, her shortness of breath is at his baseline she has a dry cough with no phlegm and no hemoptysis. She is afebrile. She was walking in her room. room air saturation 96%. White blood cell count is 14.6, creatinine is 0.8. she has improved but persistent expiratory wheezes bilaterally. Urine pneumococcal antigen is positive Plan: Patient continues to improve. Will change her to prednisone 40 mg p.o. and discontinue IV steroids (day 3 steroids). Will change her DuoNebs from q.6 hours to q.4 hours. no infectious complaints, afebrile, leukocytosis likely related to IV steroids. Although her urine pneumococcal antigen is positive she does not appear infected and has no evidence of any new infiltrates on her CT scan. She received 3 days of ceftriaxone and azithromycin I do not feel a need for additional antibiotics at this time. She requires no oxygen at night. smoking and illicit drug use cessation counseling provided. 07/26/24: Overall the patient tells me that she is 95% back to normal. Overall her breathing feels normal. She feels fatigued. Her cough is normal and she has no phlegm or hemoptysis. She is afebrile. White blood cell count 12.9, creatinine 0.9. Room air saturations 96%. No wheezing with normal respiration. E
--- NOTE | 2024-07-26 10:03 | PM.DS ---
DS: Admitting Diagnosis Discharge Date 07/26/2024 Admitting Diagnosis COPD exacerbation DS: Discharge Diagnosis Discharge Diagnosis (1) COPD exacerbation: Code(s): J44.1 - Chronic obstructive pulmonary disease with (acute) exacerbation Status: Acute Assessment and Plan: COPD with acute exacerbation. She is a patient of Dr. Dewitt, pulmonary. Started on prednisone l 40 po, DuoNebs q.4 hours, guaifenesin 1200 mg p.o. b.i.d., continue 10 mg Claritin 10 mg q.day. Continue tessalon perles 200 TID, continue guaifenesin, chlorseptic lozenges for sore throat, loratadine daily, has been taking hydroxyzine daily, can continue prn Completed azithromycin 500 daily x3 days Received smoking cessation education. Resources for cessation of cocaine/methamphetamine use 07/24 CT chest shows Atelectatic changes in the right middle lobe unchanged from previous examination. Venous Doppler shows no DVT Patient had an overnight oximetry on room air with recording duration 6 hours and 17 minutes. Average saturation 93%. Low saturation 78%. Time with saturation less than or equal to 88% was 1 minute. Oxygen desaturation index 9.5. (2) Personal history of nicotine dependence: Code(s): Z87.891 - Personal history of nicotine dependence Status: Acute Assessment and Plan: -ongoing -declines any quit smoking aids at this time (3) Hyponatremia: Code(s): E87.1 - Hypo-osmolality and hyponatremia Status: Acute Assessment and Plan: 1 Liter of saline given in the ED. Sodium improving and stable. May be second to COPD and drug use 07/20 123, 07/21 129, 07/22 133, 07/23 133, 07/24 135-improving -continue monitor with BMP (4) Polysubstance abuse: Code(s): F19.10 - Other psychoactive substance abuse, uncomplicated Status: Acute Assessment and Plan: discussed and pt interested in doing rehab again -will provide resources for her to utilize once discharged (5) Cocaine use: Code(s): F14.90 - Cocaine use, unspecified, uncomplicated Status: Acute Assessment and Plan: Chronic, intermittent. Patient admits to using cocaine prior to admission -initiate safety plan check patient's belongings --social work resources as noted (6) Ascending aortic aneurysm: Code(s): I71.21 - Aneurysm of the ascending aorta, without rupture Status: Acute Assessment and Plan: Recent CT 06/17 with an ascending aortic aneurism that measures 4.8cm in diameter --Needs a CT or MR angiography, or echo every 6 months to follow --Blood pressure 98/71-142/64 yesterday, 127/84 07/23 --Avoid cocaine/methamphetamines as discussed (7) Leukocytosis: Code(s): D72.829 - Elevated white blood cell count, unspecified Status: Acute Assessment and Plan: Patient has no signs of respiratory infection, UTI infection, soft tissue infection, leukocytosis could be reactive Repeat CBC shows improvement leukocytosis without antibiotics likely reactive. Plan VTE Prophylaxis: SCDs, add lovenox DIET: Heart healthy Anticipated hospital stay: observation Code Status: full Patient will likely discharge home tomorrow DS: Summary Hospital Course Reason for hospitalization: COPD exacerbation Hospital Course: 59-year-old female with a PMHx: COPD not on home oxygen, HTN, anxiety, polysubstance abuse, here today with complaints of ongoing SOB and dyspnea for the past 3 days. Patient reports ongoing nonproductive dry cough, she admits to using cocaine prior to ED arrival. She denies any close sick contacts. Patient reports history of HTN and admits to noncompliance with medication. ED Work-up reveals: Initial vitals: b/p 146/94, rr 23, pr105, sp02 97% on RA, T97.6: Chest x-ray reveals no acute cardiopulmonary process viral PCR is negative. WB PC was initially elevated 10.2, then recheck it revealed 7.6, hyponatremia 123-K+ 3.2, tropo
[2024-07-26 10:45] VITALS: PULSE 86; O2SAT 96
[2024-07-26 10:50] VITALS: PULSE 107; O2SAT 96
[2024-07-26 10:55] VITALS: PULSE 85; O2SAT 95
[2024-07-26] MEDS: TIZANIDINE HCL 4 MG TABLET PO (10:58)
[2024-07-26] MEDS: ACETAMINOPHEN 325 MG TABLET 650 MG PO (11:01)
--- NOTE | 2024-07-26 11:17 | HOMEO2EVAL ---
Evaluation was performed at [facility] Home Oxygen Evaluation RC: Home Oxygen (O2) Evaluation Start: 07/26/24 08:46 Freq: ONCE Status: Active Protocol: RPE Activity Type Activity Date Activity User E-sign Co-sign Detail Recorded Client Recorded Date Recorded By Document 07/26/24 10:45 [email or web address] [email or web address] 07/26/24 11:17 DJO Document 07/26/24 10:50 [email or web address] [email or web address] 07/26/24 11:17 DJO Document 07/26/24 10:55 [email or web address] [email or web address] 07/26/24 11:17 DJO Document 07/26/24 11:00 [email or web address] [email or web address] 07/26/24 11:17 DJO Document 07/26/24 11:05 [email or web address] [email or web address] 07/26/24 11:17 DJO Document 07/26/24 11:15 [email or web address] [email or web address] 07/26/24 11:17 DJO 07/26/24 07/26/24 07/26/24 10:45 10:50 10:55 Home O2 Evaluation [Oxygen] -Test Phase Resting Resting Resting -Oxygen Delivery Room Air Nasal Cannula Nasal Cannula -Oxygen Flow Rate (L/min) 1 2 [Pulse Oximetry] -Pulse Oximetry (90-100 %) 85 L 87 L 88 L [Pulse Rate] -Pulse Rate (60-100 beats/min) 82 84 82 [Evaluation] -Activity Tolerance 07/26/24 07/26/24 07/26/24 11:00 11:05 11:15 Home O2 Evaluation [Oxygen] -Test Phase Resting Exercise Resting -Oxygen Delivery Nasal Cannula Nasal Cannula Nasal Cannula -Oxygen Flow Rate (L/min) 3 3 3 [Pulse Oximetry] -Pulse Oximetry (90-100 %) 91 90 92 [Pulse Rate] -Pulse Rate (60-100 beats/min) 80 105 H 88 [Evaluation] -Activity Tolerance Good
--- NOTE | 2024-07-26 11:17 | PCRCNOTE ---
HOME O2 EVAL COMPLETE, NO CHANGES TO HOME SETTING
--- NOTE | 2024-07-26 11:22 | PCRCNOTE ---
HOME O2 EVAL COMPLETE, NO REQUIREMENTS
--- NOTE | 2024-07-26 11:22 | HOMEO2EVAL ---
Evaluation was performed at [facility] Home Oxygen Evaluation RC: Home Oxygen (O2) Evaluation Start: 07/26/24 08:46 Freq: ONCE Status: Active Protocol: RPE Activity Type Activity Date Activity User E-sign Co-sign Detail Recorded Client Recorded Date Recorded By Document 07/26/24 10:45 [email or web address] [email or web address] 07/26/24 11:17 DJO Document 07/26/24 10:50 [email or web address] [email or web address] 07/26/24 11:17 DJO Document 07/26/24 10:55 [email or web address] [email or web address] 07/26/24 11:17 DJO Document 07/26/24 11:00 [email or web address] [email or web address] 07/26/24 11:17 DJO Document 07/26/24 11:05 [email or web address] [email or web address] 07/26/24 11:17 DJO Document 07/26/24 11:15 [email or web address] [email or web address] 07/26/24 11:17 DJO 07/26/24 07/26/24 07/26/24 10:45 10:50 10:55 Home O2 Evaluation [Oxygen] -Test Phase Resting Exercise Resting -Oxygen Delivery Room Air Nasal Cannula [Pulse Oximetry] -Pulse Oximetry (90-100 %) 96 96 95 [Pulse Rate] -Pulse Rate (60-100 beats/min) 86 107 H 85 [Evaluation] -Activity Tolerance Good [Charges] -Evaluation Charges O2 Evaluation by Pulmonary 07/26/24 07/26/24 07/26/24 11:00 11:05 11:15 Home O2 Evaluation [Oxygen] -Test Phase -Oxygen Delivery Nasal Cannula Nasal Cannula Nasal Cannula [Pulse Oximetry] -Pulse Oximetry (90-100 %) [Pulse Rate] -Pulse Rate (60-100 beats/min) [Evaluation] -Activity Tolerance Good [Charges] -Evaluation Charges
[2024-07-27 05:18] LABS: Adenovirus DNA Not Detected (Not Detected); Chlamydophila pneumoniae Not Detected (Not Detected); Coronavirus 229E Not Detected (Not Detected); Coronavirus HKU1 Not Detected (Not Detected); Coronavirus NL63 Not Detected (Not Detected); Coronavirus OC43 Not Detected (Not Detected); Human Metapneumovirus Not Detected (Not Detected); Human Parainfluenza Virus 1 Not Detected (Not Detected); Human Parainfluenza Virus 2 Not Detected (Not Detected); Human Parainfluenza Virus 3 Not Detected (Not Detected); Human Parainfluenza Virus 4 Not Detected (Not Detected); Human RSV B Not Detected (Not Detected); Influenza A Not Detected (Not Detected); Influenza B Not Detected (Not Detected); Mycoplasma pneumoniae Not Detected (Not Detected); Rhinovirus/Enterovirus Not Detected (Not Detected)
== END 2024-07-26 14:35 | DRG 140 ==
LOC: ANHED 17:45 → ANH3MED 19:00
PROVIDERS: Emergency Medicine; Internal Medicine Pulmonary Disease; Nurse Practitioner; Admitting Provider General Practice; Emergency Provider Emergency Medicine; PCP Internal Medicine; Visit Provider Nurse Practitioner Gerontology
DX: J44.1 Chronic obstructive pulmonary disease with (acute) exacerbation (principal); E87.1 Hypo-osmolality and hyponatremia; F14.90 Cocaine use, unspecified, uncomplicated; F19.10 Other psychoactive substance abuse, uncomplicated; D72.829 Elevated white blood cell count, unspecified; I10 Essential (primary) hypertension; I71.21 Aneurysm of the ascending aorta, without rupture; F41.9 Anxiety disorder, unspecified; F31.9 Bipolar disorder, unspecified; G47.10 Hypersomnia, unspecified; M79.7 Fibromyalgia; M48.00 Spinal stenosis, site unspecified; F17.210 Nicotine dependence, cigarettes, uncomplicated; Z20.822 Contact with and (suspected) exposure to COVID-19; Z90.711 Acquired absence of uterus with remaining cervical stump
CPT/HCPCS: 36415; 36600; 71046; 71250; 80053; 80307; 81001; 82104; 82805; 83880; 84439; 84443; 84484; 85018; 85025; 85380; 85610; 85730; 87040; 87633; 87637; 87899; 93005; 93970; 94618; 94640; 96365; 96374; 96375; 99285; A9270; C8929; G0378; G0379; J0696; J1650; J2919; J7030; J7512; Q9957

== ENCOUNTER 2024-11-04 16:23 | Emergency (ER) | payer OTHER, SELFPAY ==
[2024-11-04 16:32] VITALS: BP 122/83; PULSE 96; RESP 18; TEMP 36.1; O2SAT 99
--- NOTE | 2024-11-04 17:20 | ED.URI ---
HPI - URI/Sore Throat General Chief Complaint: Upper Respiratory Infection Stated Complaint: Sinus/Ear Irritation Time Seen by Provider: 11/04/24 17:06 Source: patient and RN notes reviewed Mode of arrival: ambulatory Limitations: no limitations History of Present Illness HPI Narrative: Patient presents today complaining of a 3 week history of nasal congestion, frontal headache, and sinus pressure with a 4 day history of left ear pain and pressure. She was placed on 5 days of doxycycline last week by her messaging architect which she states did not help her symptoms. Denies sore throat, postnasal drip, shortness of breath, fever, cough. She has tried Jaja-Dighton Plus, TheraFlu without relief. Related Data Home Medications ?Medication ?Instructions ?Recorded ?Confirmed ?Last Taken ?Type famotidine 20 mg tablet 20 mg PO BID 01/02/23 08/30/24 07/16/24 History tiotropium bromide 18 mcg capsule 1 cap inhalation DAILY 01/02/23 08/30/24 07/16/24 History with inhalation device (Spiriva with HandiHaler) tizanidine 4 mg tablet 4 mg PO Q8H PRN Muscle Spasm 01/02/23 08/30/24 07/16/24 History budesonide-formoterol HFA 160 2 inh inhalation BID 09/12/23 08/30/24 07/16/24 History mcg-4.5 mcg/actuation aerosol inhaler (Symbicort) lisinopril 10 mg tablet 10 mg PO DAILY 09/12/23 08/30/24 07/16/24 History omeprazole 20 mg capsule,delayed 20 mg PO DAILY 09/12/23 08/30/24 07/16/24 History release brexpiprazole 0.25 mg tablet 0.25 mg PO DAILY 06/17/24 08/30/24 07/16/24 History (Rexulti) bupropion HCl 150 mg tablet,12 hr 150 mg PO DAILY 06/17/24 08/30/24 07/16/24 History sustained-release hydroxyzine pamoate 25 mg capsule 25 mg PO DAILY 06/17/24 08/30/24 07/20/24 History ferrous sulfate 325 mg (65 mg 325 mg PO DAILY 07/20/24 08/30/24 07/16/24 History iron) tablet (FeroSul) Allergies Allergy/AdvReac Type Severity Reaction Status Date / Time No Known Allergies Allergy Unknown Verified 11/04/24 16:27 Review of Systems Review of Systems: CONSTITUTIONAL: Denies body aches, fever, chills, or sweats. EYES: Denies visual changes, redness, or discharge. ENT: Denies rhinorrhea, sore throat. + left ear pain, sinus pressure and congestion CARDIOVASCULAR: Denies chest pain, palpitations, or edema. RESPIRATORY: Denies cough or dyspnea. GASTROINTESTINAL: Denies abdominal pain, nausea, vomiting, or diarrhea. GENITOURINARY: Denies dysuria or hematuria. SKIN: Denies rash, itching, or wounds. MUSCULOSKELETAL: Denies back pain, joint pain, or myalgia. NEUROLOGIC: Denies numbness, tingling, or weakness.+ headache PSYCH: Denies depression or anxiety. FOR[facility]LY [facility], [facility] Past Medical History Medical History Chronic recurrent major depressive disorder Nicotine dependence, cigarettes, with other nicotine-induced disorders History of COPD History of substance abuse History of hypertension Spinal stenosis Fibromyalgia Diverticulitis Tobacco dependence Chronic obstructive pulmonary disease Bipolar disorder Anxiety Depression Surgical History Surgical History History of ankle surgery History of partial hysterectomy Family History Family History Father Acute myocardial infarction Congestive heart failure Hypertension Prostate carcinoma Sibling Chronic obstructive pulmonary disease Cerebrovascular accident Social History Social History Social History: Surrogate medical decision maker: Charito Fish, daughter. Code status: Full code. Smoking packs per day: 0.5 Smoking cigarettes per day: 10.0 Years smoked: 40 Smoking pack-years: 20.00 Smoking status: Current every day smoker Tobacco type: cigarettes Second hand tobacco smoke exposure: No Alcohol intake: current Drinks per week: 1 Substance use: current Substance use type: crack/cocaine and methamphetamine Last use: 09/10/23 Do You Feel Safe in your Home?: Yes Lack of Transportation: YES Lack of Food: Sometimes True Current Housing: I Have Housing Concerned About Future Housing: No Difficulty Paying Gas/Electric Bills: No Difficulty Paying for Meds: No Currently Unemployed: No Education: High School Diploma/GED Difficulty w/ Childcare or Family Care: No Spiritual care concerns: No Comments At time of signature, I have reviewed and agree with nursing past medical, surgical, social and family history unless otherwise noted. Please see nursing chart for further information. There is no relevant family history pertinent to the presenting complaint Exam Narrative: GENERAL: Mildly ill-appearing, well-nourished, and in no acute distress. HEAD: Normocephalic, atraumatic. EYES: EOMI. No redness or drainage. Conjunctivae normal. ENT: Mucous membranes pink and moist. Nares congested. No rhinorrhea. Bilateral maxillary sinus tenderness to palpation. Bilateral nasal turbinates are erythematous and edematous. TMs normal bilaterally. Throat normal. Uvula midline. NECK: Normal AROM. Supple. No lymphadenopathy. CHEST: No respiratory distress. Clear to auscultation. HEART: Regular rate and rhythm. No murmur appreciated. EXTREMITIES: Normal range of motion. No edema. SKIN: Warm, dry, no rash. Capillary refill normal. Normal skin turgor. NEURO: No focal deficits. Alert and oriented x3. Gait steady. PSYCH: Normal affect. No signs of depression or anxiety. Course Course Level of Care: Express Care Visit Vital Signs Vital signs: Vital Signs Temperature 97.0 F L 11/04/24 16:32 Pulse Rate 96 11/04/24 16:32 Respiratory Rate 18 11/04/24 16:32 Blood Pressure 122/83 11/04/24 16:32 Pulse Oximetry 99 11/04/24 16:32 Oxygen Delivery Room Air 11/04/24 16:32 Temperature 97.0 F L 11/04/24 16:32 Pulse Rate 96 11/04/24 16:32 Respiratory Rate 18 11/04/24 16:32 Blood Pressure 122/83 11/04/24 16:32 Pulse Oximetry 99 11/04/24 16:32 Oxygen Delivery Room Air 11/04/24 16:32 Reviewed MDM - URI/Sore Throat MDM Narrative Medical decision making narrative: Patient will be treated with a course of Augmentin for sinusitis. Anticipatory guidance given. ED precautions given. Differential Diagnosis Differential diagnosis: Likely upper respiratory infection, otitis media, sinusitis and viral infection Critical Care Time Critical Care Time Critical Care Time: No Discharge Plan Discharge Clinical Impression: Sinusitis Qualifiers: Sinusitis location: frontal Chronicity: acute Recurrence: not specified as recurrent Qualified Code(s): J01.10 - Acute frontal sinusitis, unspecified Patient Disposition: Home, Self-Care Condition: Stable Instructions: Antibiotic Form, Sinusitis (ED) Additional Instructions: Please take the Augmentin as prescribed until gone. Continue [id number]-iwt-jgnvnss medication as needed for your symptoms. Follow-up with your PCP in 3-4 days if symptoms are not improving. Your blood pressure was elevated above 120/80 today at Urgent Care. This puts you above the threshold for follow up. Please schedule a followup visit with your personal physician as soon as possible, for further evaluation and treatment. Even blood pressure exceeding 120/80 may indicate pre-hypertension. Patient Language: Armenian Prescriptions: New amoxicillin-pot clavulanate 875-125 mg tablet 1 tablet PO Q12H 10 Days Qty: 20 0RF No Action Rexulti 0.25 mg tablet 0.25 mg PO DAILY bupropion HCl 150 mg tablet sustained-release 12 hr 150 mg PO DAILY hydroxyzine pamoate 25 mg capsule 25 mg PO DAILY albuterol sulfate 2.5 mg /3 mL (0.083 %) solution for nebulization 2.5 mg inhalation Q4-6H PRN (Reason: shortness of breath or wheezing) Qty: 360 3RF eszopiclone [Lunesta] 2 mg tablet 2 mg PO ONCE Qty: 1 0RF Rx Instructions: Take 1 tablet with you to sleep lab on the night of sleep study. tizanidine 4 mg tablet 4 mg PO Q8H PRN (Reason: Muscle Spasm) famotidine 20 mg tablet 20 mg PO BID tiotropium bromide [Spiriva with HandiHaler] 18 mcg capsule, w/inhalation device 1 cap INHALATION DAILY lisinopril 10 mg tablet 10 mg PO DAILY omeprazole 20 mg capsule,delayed release(DR/EC) 20 mg PO DAILY budesonide-formoterol [Symbicort] 160-4.5 mcg/actuation HFA aerosol inhaler 2 inh INHALATION BID albuterol sulfate 90 mcg/actuation HFA aerosol inhaler 2 puff INHALATION QID PRN (Reason: shortness of breath or wheezing) Qty: 8 0RF ferrous sulfate [FeroSul] 325 mg (65 mg iron) tablet 325 mg PO DAILY prednisone 10 mg tablet See Rx Instructions PO DAILY Qty: 34 0RF Rx Instructions: 4 tabs daily x 4 days; then 3 tabs daily x 3 days, then 2 tabs daily x 3 days, then 1 tab daily x 3 days. Follow-up/Referrals: Estiven Alvarado MD [Primary Care Provider] - Time of Disposition: 17:39
== END 2024-11-04 17:49 | disposition home or self-care (01) ==
PROVIDERS: Emergency Provider Nurse Practitioner; PCP Internal Medicine
DX: J01.10 Acute frontal sinusitis, unspecified (principal); F17.210 Nicotine dependence, cigarettes, uncomplicated; J44.9 Chronic obstructive pulmonary disease, unspecified; I10 Essential (primary) hypertension; M79.7 Fibromyalgia; F41.9 Anxiety disorder, unspecified; F33.9 Major depressive disorder, recurrent, unspecified
CPT/HCPCS: 99213; G0463

== ENCOUNTER 2024-12-11 09:06 | Outpatient (CLI) | payer OTHER, SELFPAY ==
--- OUTSIDE RECORDS SUMMARY | 2024-12-11 09:44 | XMS_ITS | CONTINUITY OF CARE DOCUMENT ---
Author Name nena barrett Address Unknown Organization [facility] Address [address] [place] [address] Phone [phone] Care Team Providers Care Window Unit Air Conditioning Mechanic Name Role Phone Andrei Canales MD Unavailable [phone] ERNESTO VILLALOBOS MD Unavailable [phone] NISHI HOLLOWAY MD Unavailable INSURANCE PROVIDERS Payer name Policy type / Coverage type [facility] green party ID AETNA [facility] Medicaid [id number]
--- OUTSIDE RECORDS SUMMARY | 2024-12-11 09:44 | XMS_ITS | Referral Summary ---
Author Organization [facility] Address [address] [place] [address] Care Team Providers Care Residence Manager Name Role Phone Sean Lee MD Unavailable [phone] Myron Ruelas MD Unavailable [phone] Estiven Alvarado MD Primary Care Provider [phone] Allergies No known active allergies Medications Symbicort 160-4.5 mcg/actuation inhaler Inhale 2 puffs 2 (two) times a day 02/02/20 21 Active traZODone (DESYREL) 100 mg tablet Take 0.5 tablets (50 mg total) by mouth nightly as needed for sleep 02/04/20 21 Active famotidine (PEPCID) 20 mg tablet Take 1 tablet (20 mg total) by mouth 2 (two) times a day 04/23/20 21 Active ipratropium-albut Jami (DUO-NEB) 0.5-2.5 mg/3 mL nebulizer solutionIndicatio ns:Chronic Obstructive Pulmonary Disease with Bronchospasms Take 3 mL by nebulization every 6 (six) hours 360 mL 12/14/19 22 Active acetaminophen (TYLENOL) 500 mg tablet two tablets NEEDED FOR PAIN Orally three times daily Active Rexulti 0.25 mg tablet 1 tablet (0.25 mg total) daily 02/06/20 24 Active tiZANidine (ZANAFLEX) 4 mg tablet Take 1 tablet (4 mg total) by mouth every 6 (six) hours as needed Active Spiriva with HandiHaler 18 mcg per inhalation capsule Place 1 puff (1 capsule total) into inhaler and inhale daily Active omeprazole (PriLOSEC) 20 mg capsule Take 1 capsule (20 mg total) by mouth daily 03/25/20 24 Active multivit with min-folic acid 0.4 mg tablet daily Active loratadine (CLARITIN) 10 mg tablet Take 1 tablet (10 mg total) by mouth daily Active lisinopriL (PRINIVIL,ZESTRIL ) 10 mg tablet Take 1 tablet (10 mg total) by mouth daily 03/25/20 24 Active ibuprofen (ADVIL,MOTRIN) 600 mg tablet Take 1 tablet (600 mg total) by mouth 3 (three) times a day Active hydrOXYzine (VISTARIL) 25 mg capsule Take 1 capsule (25 mg total) by mouth 03/25/20 24 Active dextromethorphan- guaiFENesin (ROBITUSSIN-DM) 2-20 mg/mL liquid Take 5 mL by mouth every 12 (twelve) hours 02/05/20 24 Active folic acid (FOLVITE) 1 mg tablet Take 1 tablet (1 mg total) by mouth daily Active fluticasone propionate (FLONASE) 50 mcg/actuation nasal spray Administer 1 spray into each nostril daily Active FeroSuL 325 mg (65 mg iron) tablet Take 1 tablet (325 mg total) by mouth daily with breakfast 03/25/20 24 Active cholecalciferol (VITAMIN D-3) 2000 unit capsule 1 capsule (2,000 Units total) daily Active buPROPion XL (WELLBUTRIN XL) 150 mg 24 hr tablet 1 tablet (150 mg total) daily 02/06/20 24 Active Ventolin HFA 90 mcg/actuation inhaler every 4 hours Active busPIRone (BUSPAR) 15 mg tabletIndications :Generalized Anxiety Disorder Take 1 tablet (15 mg total) by mouth 2 (two) times a day Active Active Problems Problem Noted Date Diagnosed Date Acute exacerbation of chroni c obstructive pulmonary disease (COPD) 12/15/2021 COPD exacerbation 12/11/2021 Collapse of right lung 08/11/2021 Lumbar radiculopathy 09/11/2018 Overview (04/03/2024): Added automatically from request for surgery [id number] Added automatically from request for surgery [id number] Gastroesophageal reflux disease without esophagi tis 11/28/2017 Irritable bowel syndrome with diarrhea 8 Back pain 11/27/2017 Cannabis abuse 11/27/2017 Cocaine abuse 11/27/2017 Major depressive disorder 11/27/2017 Immunizations Immunization Administration Dates Next Due Influenza, Quadrivalent, Spl it, Preservative Free, Intramuscular 08/16/2021 Tdap 05/08/2021 Social History Tobacco Use Types Packs/Day Years Used Date Smoking Tobacco: Every Day Cigarettes Smokeless Tobacco: Never Alcohol Use Standard Drinks/Week Comments Yes 0 (1 standard drink = 0.6 oz pur e alcohol) occasional AUDIT-C Answer Date Recorded Q1: How often do you have a drink containing alc ohol? Monthly or less 08/16/2021 Q2: How many drinks containi ng alcohol do you have on a typical day when you are drinking? 1 or 2 08/16/2021 Q3: How often do you have si x or more drinks on one occasion? Never 08/16/2021 Personal Safety Answer Date Recorded Have you ever been in or are you currently in a harmful physical or emotional relationship or is someone making you feel afraid or unsafe? 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 Gender Identity Not on file Sexual Orientation Not on file Last Filed Vital Signs Vital Sign Reading Time Taken Comments Blood Pressure 113/81 06/26/2024 2:11 PM CDT Pulse 102 06/26/2024 2:11 PM CDT Temperature 36.8 C (98.2 F) 01/03/2024 7:48 PM CDT Respiratory Rate 18 01/04/2024 12:30 AM CDT Oxygen Saturation 97% 01/04/2024 12:30 AM CDT Inhaled Oxygen Concentration - - Weight 103.4 kg (228 lb) 06/26/2024 2:11 PM CDT Height 157.5 cm (5' 2 ) 06/26/2024 2:11 PM CDT Body Mass Index 41.7 06/26/2024 2:11 PM CDT Plan of Treatment Not on file Procedures Procedure Name Priority Date/Time Associated Diagnosis Comments SCREENING MAMMOGRAM 2D BILATERAL Routine 02/17/2014 8:13 AM CDT from Last 3 Months or Most Recently Relevant to Health Maintenance Results * Screening Mammogram 2D Bilateral (02/17/2014 8:13 AM CDT) Anatomical Region Laterality Modality Breast Bilateral Mammography 02/17/2014 8:13 AM CDT Impressions 02/20/2014 2:38 PM CDT No mammographic evidence of malignancy. Recommend routine annual screening mammography. ASSESSMENT: BIRADS: 1 - Negative A letter will be mailed to the patient with the results and recommendations. The patient will be entered into a reminder system for an annual screening mammogram in 1 year. THIS IS AN ELECTRONICALLY VERIFIED REPORT 02/20/2014 2:34 PM: Mohamud Xavier M.D. Mohamud Xavire M.D. MD: 02:34 PM 02:34 PM [facility] [EOD] Narrative 02/20/2014 2:38 PM CDT EXAMINATION: Bilateral screening mammography HISTORY: Routine screening mammogram. COMPARISON: 12/10/2010, 06/22/2009 TECHNIQUE: Bilateral digital full field of view mammography was performed, with the aid of computer aided detection (CAD). FINDINGS: Bilateral breast tissue is almost entirely fat density. No significant mass, microcalcifications, or other findings are seen. No suspicious interval change is identified relative to the prior studies. Procedure Note Provider, MD [place] - 02/24/2021 EXAMINATION: Bilateral screening mammography HISTORY: Routine screening mammogram. COMPARISON: 12/10/2010, 06/22/2009 TECHNIQUE: Bilateral digital full field of view mammography wasperformed, with the aid of computer aided detection (CAD). FINDINGS: Bilateral breast tissue is almost entirely fat density. No significant mass, microcalcifications, or other findings are seen. No suspicious interval change is identified relative to the prior studies. IMPRESSION: No mammographic evidence of malignancy. Recommend routine annualscreening mammography. ASSESSMENT: BIRADS: 1 - Negative A letter will be mailed to the patient with the results andrecommendadustin. The patient will be entered into a reminder system for an annual screening mammogram in 1 year. THIS IS AN ELECTRONICALLY VERIFIED REPORT 02/20/2014 2:34 PM: Mohamud Xavier M.D. Mohamud Xavier M.D. MD: 02:34 PM 02:34 PM [facility] [EOD] Rosemarie Shaka Siegel DO IMG MAMMO PROCEDURES F inal Result from Last 3 Months or Most Recently Relevant to Health Maintenance Insurance AETNA [facility] Advance Directives For more information, please contact: [phone] * Full Code (Latest Code Status on File) Date Activated Date Inactivated Comments 12/13/2021 9:52 AM 12/13/2021 6:25 PM * Full Code Date Activated Date Inactivated Comments 08/11/2021 6:32 PM 08/19/2021 1:49 AM Care Teams Residence Manager Relationship Specialty Start Date End Date Estiven Alvarado MD [address] [facility] [place] [address] PCP - General Internal Medicine 02/22/24 Sean Lee MD [address] [facility] [address] [place] [address] Consulting Physician Pulmonary Disease 08/18/21 Myron Ruelas MD [address] [facility] [address] [place] [address] Consulting Physician Pulmonary Disease 12/13/21
--- OUTSIDE RECORDS SUMMARY | 2024-12-11 09:44 | XMS_ITS | Clinical Summary ---
Author Organization [facility] Address [address] [place] [address] Care Team Providers Care Mold Bunch Trimmer Name Role Phone Sean Lee MD Unavailable [phone] Myron Ruelas MD Unavailable [phone] Estiven Alvarado MD Primary Care Provider [phone] Allergies No known active allergies Medications Symbicort [...] (04/03/2024): Added automatically from request for surgery [id number] Added automatically from request for surgery [id number] Gastroesophageal reflux disease without esophagi tis 11/28/2017 Irritable bowel syndrome with diarrhea 8 Back pain 11/27/2017 Cannabis abuse 11/27/2017 Cocaine abuse 11/27/2017 Major depressive disorder 11/27/2017 Immunizations Immunization Administration Dates Next Due Influenza, Quadrivalent, Spl it, Preservative Free, Intramuscular 08/16/2021 Tdap 05/08/2021 Surgical History Surgery Date Site/Laterality Comments CA REPAIR FIRST ABDOMINAL WA LL HERNIA Ventral Hernia Repair - (Added by TW Conv) CA LIG/TRNSXJ FLP TUBE ABDL/ VAG APPR UNI/BI Tubal Ligation - (Added by TW Conv) CA TOTAL ABDOMINAL HYSTERECT W/WO RMVL TUBE OVARY Total Abdominal Hysterectomy - (Added by TW Conv) Medical History Medical History Date Comments Depression Anxiety PTSD (post-traumatic stress disorder) COPD (chronic obstructive pu lmonary disease) (HCC) Polysubstance abuse (HCC) 2019 Quit e bryant 2020; has been clean since that time Nicotine abuse 2020 1PPD since age [age] Neuropathy Sciatica Hypertension Sleep apnea Cancer (HCC) 1993 ovarian Arthritis Family History Medical History Relation Name Comments Coronary artery disease Father Hypertension Father Prostate cancer Father Alzheimer's disease Mother Bipolar disorder Mother Depression Mother Hypothyroidism Mother Blood Clot Other Osteoarthritis Other Colon cancer Neg Hx Relation Name Status Comments Father Mother Other Social History Tobacco Use Types Packs/Day Years [...] on file 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 Gender Identity Not on file Sexual Orientation Not on file Obstetrics History Last Filed Vital Signs Vital Sign Reading [...] 06/26/2024 2:11 PM CDT Plan of Treatment Health Maintenance Due Date Last Done Comments Cervical Cancer Screening 1965 Colon Cancer Screening-Colonoscopy 1965 Depression Screening 1965 Hepatitis C Screening 1965 Hepatitis B Screening 1981 Regular Well Visit/Exam 18-64 1981 Zoster Vaccine (1 of 2) 2013 Breast Cancer Screening-Mammogram 02/17/2015 014 Covid-19 Vaccine (2023-2 5 season) 2024 11/21/2023, 05/23/2021, 04/23/2021 Influenza Vaccine (#1) 2024 , 07/13/2018, 08/05/2015, Additional history exists DTaP/Tdap/Td Vaccine (2 - Td or Tdap) 05/08/2031 05/08/2021 Pneumococcal vaccine <65 Completed 11/21/2023, 07/10 Procedures Procedure Name Priority Date/Time Associated Diagnosis [...] Xavier M.D. MD: 02:34 PM 02:34 PM [facility] [EOD] Narrative 02/20/2014 2:38 PM CDT [...] mailed to the patient with the results andrecommendations. The patient will be entered into a reminder system for an annual screening mammogram in 1 year. THIS IS AN ELECTRONICALLY VERIFIED REPORT 02/20/2014 2:34 PM: Mohamud Xavier M.D. Mohamud Xavier M.D. MD: 02:34 PM 02:34 PM [facility] [EOD] Rosemarie Siegel DO IMG MAMMO PROCEDURES F inal Result from Last 3 Months or Most Recently Relevant to Health Maintenance Insurance [facility] Advance Directives For more information, please contact: [phone] * Full Code (Latest Code Status on File) Date Activated Date Inactivated Comments 12/13/2021 9:52 AM 12/13/2021 6:25 PM * Full Code Date Activated Date Inactivated Comments 08/11/2021 6:32 PM 08/19/2021 1:49 AM Care Teams Mold Bunch Trimmer Relationship Specialty Start Date End Date Estiven Alvarado MD [address] [place] [address] [place] [address] PCP - General Internal Medicine 02/22/24 Sean Lee MD [address] [facility] [address] [place] [address] Consulting Physician Pulmonary Disease 08/18/21 Myron Ruelas MD [address] [facility] [address] [place] [address] Consulting Physician Pulmonary Disease 12/13/21
--- OUTSIDE RECORDS SUMMARY | 2024-12-11 09:44 | XMS_ITS ---
Author Organization [facility] Address [address] [place] [address] Care Team Providers Care Gluing Machine Operator Name Role Phone Estiven Alvarado Primary Care Provider Sam Hernandez Unavailable [phone] REASON FOR VISIT call back Social History Sex Assigned At : Social History Observation Description Sex Assigned At Female Encounters Encounter Location Date Provider Diagnosis [address] [place] [address] 12/03/2024 Estiven Alvarado Plan Of Treatment No Information Progress Notes * Nohelia MORALESDOB:1965 (59 yo F)Acc No.[id number]:12/03/2024 Patient: La Nohelia LEUNG :1965 A ge:59 Y S ex:Female Address:[address], [place], [address] * true * Date: Generated for Luc todd/Gatito/eTransmitting on: 0 12/11/2024 09:44 AM FLORAL MANAGER
--- OUTSIDE RECORDS SUMMARY | 2024-12-11 09:44 | XMS_ITS | Clinical Summary ---
Author Organization [facility] Address [address] [place] [id number] Care Team Providers Care Technician Test Systems Name Role Phone Leela Sewell KAT Primary Care Provider [phone] Allergies No known active allergies Active Problems Problem Noted Date Diagnosed Date Lumbar radiculopathy 09/11/2018 Overview (09/11/2018): Added automatically from request for surgery [id number] Family History Medical History Relation Comments Lung Cancer Father Lung Cancer Mother Relation Status Comments Father Mother Social History Tobacco Use Types Packs/Day Years Used Date Smoking Tobacco: Former Cigarettes Smokeless Tobacco: Never Tobacco Cessation:Counseling Given: No Alcohol Use Standard Drinks/Week Comments No 0 (1 standard drink = 0.6 oz pur e alcohol) AUDIT-C Answer Date Recorded Frequency of Alcohol Consumption Never 07/19/2018 Average Number of Drinks Not on file 018 Frequency of Binge Drinking Not on file 07/09 Comments No Sex and Gender Information Value Date Recorded Sex Assigned at Not on file Legal Sex Female 7:36 PM CDT Gender Identity Not on file Sexual Orientation Not on file Occupation Industry Job Start Date Job End Date Retired: [employer] Not on file Not on file Not on file Last Filed Vital Signs Vital Sign Reading Time Taken Comments Blood Pressure 114/83 09/28/2023 5:00 AM TOPOLOGY PROFESSOR Pulse 111 09/28/2023 5:00 AM TOPOLOGY PROFESSOR Temperature 36.9 C (98.5 F) 09/28/2023 2:21 AM TOPOLOGY PROFESSOR Respiratory Rate 20 09/28/2023 2:21 AM TOPOLOGY PROFESSOR Oxygen Saturation 93% 09/28/2023 5:00 AM TOPOLOGY PROFESSOR Inhaled Oxygen Concentration - - Weight 90.7 kg (200 lb) 09/28/2023 2:32 AM TOPOLOGY PROFESSOR Height 162.6 cm (5' 4 ) 09/28/2023 2:32 AM TOPOLOGY PROFESSOR Body Mass Index 34.33 09/28/2023 2:32 AM TOPOLOGY PROFESSOR Plan of Treatment Health Maintenance Due Date Last Done Comments Cervical Cancer Screening Pap Smear (Age 30 to 64) Every 3 Years 1963 Colorectal Cancer Screening Colonoscopy (10 Years) 1963 Annual Physical 1966 Hepatitis C 1981 Cervical Cancer Screening Pap with HPV Testing (Age 30 to 64) Every 5 Years 1993 Cervical Cancer Screening with HPV 1993 Mammogram Screening 2003 Zoster Vaccines (1 of 2) 2013 COVID-19 Vaccine (2 - season) 2024 04/23/2021 Influenza Adult (#1) 2024 08/16/2021, 07/13/2018, 08/05/2015, Additional history exists DTaP, Tdap and Td Vaccines (2 - Td or Tdap) 05/08/2031 05/08/2021 RSV Immunization or 60+ Years (1 - 1-dose 75+ series) 2038 Pneumococcal Vaccine: Pediatrics (0 to 5 Years) and At-Risk Patients (6 to 64 Years) Aged Out 08/05/2015 No longer eligible based on patient's age to complete this topic Meningococcal B Vaccine Aged Out No l onger eligible based on patient's age to complete this topic Meningococcal Vaccine Aged Out No carlos jordan eligible based on patient's age to complete this topic RSV Immunizations Under 20 Months Aged Out No longer eligible based on patient's age to complete this topic Insurance Care Teams Technician Test Systems Relationship Specialty Start Date End Date Leela Sewell NP [address] [facility] [address] [place], [place] [id number] PCP - General 09/30/15
--- OUTSIDE RECORDS SUMMARY | 2024-12-11 09:45 | XMS_ITS ---
Author Organization On license of [facility] Address [address] [place] [address] Care Team Providers Care Irrigator Head Name Role Phone Estiven Alvarado Primary Care Provider Sam Hernandez Unavailable [phone] Rosemarie Sanchez Unavailable [phone] REASON FOR VISIT Community Support Paperwork--Client states she would like to apply for a case therapist if she qualifies. Social History Sex Assigned At : Social History Observation Description Sex Assigned At Female Encounters Encounter Location Date Provider Diagnosis [address] [address] 12/06/2024 Rosemarie Sanchez Major depressive disorder, recurrent, moderate F33.1 Assessments Encounter Date Diagnosis (ICD Code) Assessment Notes Treatment Notes Treatment Clinical Notes Section Notes 12/06/2024 Major depressive disorder, recurrent, moderate (ICD-10 - F33.1) 12/06/2024 Other Clinician spoke with client via phone to assist in working on building skills to help the consumer gain confidence in their independent living skills. The clinician practiced with client implementing problem solving skills to help facilitate exploration of options related to how to apply or determine qualification criteria for community support program. This clinician screened client for the program utilizing their referral form and found client to meet critieria based on referral form. The clinician encouraged and engaged in critical thinking of how to use natural resources and coping skills to help manage symptoms in the moment while client awaits call from community support program regarding any further needs or instructions. Clinician provided in the moment support, assessed for further needs, and completed referral process on client's behalf. Plan Of Treatment Treatment Notes Assessment Notes Other Clinician spoke with client via phone to assist in working on building skills to help the consumer gain confidence in their independent living skills. The clinician practiced with client implementing problem solving skills to help facilitate exploration of options related to how to apply or determine qualification criteria for community support program. This clinician screened client for the program utilizing their referral form and found client to meet critieria based on referral form. The clinician encouraged and engaged in critical thinking of how to use natural resources and coping skills to help manage symptoms in the moment while client awaits call from community support program regarding any further needs or instructions. Clinician provided in the moment support, assessed for further needs, and completed referral process on client's behalf. Progress Notes * Nohelia MORALESDOB:1965 (59 yo F)Acc No.[id number]:12/06/2024 Patient: Nohelia FUNEZ Provider: Sylvia Sanchez :1965 A ge:59 Y S ex:Female Date:12/06/2024 Address:[address] [place] [address] Pcp:Estiven Alvarado Subjective: * Chief Complaints: * C ommunity Support Paperwork--Client states she would like to apply for a case therapist if she qualifies. * HPI: a TBC For Mental Health Services: Who Is Your Primary Care Provider? D o You Have A PCP? Y es. D o You Have A Psychiatric Provider? D o You Have A Psychiatric Provider? Y es.?Do You Have Any Other Professional Supports? D o You Have Any Other Professional Supports? No. C onsent Forms Completed During Appointment C onsent Forms Completed C onsent To Treat, Health Care Providers. A ssessment of Social Determinants of Health::: Has A PRAPARE Been Completed In The Past Year? H as a PRAPARE Been Completed In The Past Year? Y es, W as It Completed Today Using SmartForm? N o.? I nitial: Issues discussed: Scott greer informed her primary care and psychiatry providers she wanted to see if she qualified for a case therapist. This clinician called client to screen her for the community support program on this date. Client appears to meet eligibility requirements and her referral for this program was sent today.. S trengths: . . Counselor's action: S creened client for community support program and sent referral to Kristy Wren.. La bolden's response: P ositive, in agreement with referral.. F ollow-up plan:?Await further communication from community support program.. Xu H CSSRS Follow Up and Treatment Recommendations: :. C SSRS Interpretation and Follow Up Plan: :. H IV Risk Assessment Screening: :. * Medical History: * Surgical History: * Hospitalization/Major Diagno stic Procedure: * Medications: Objective: * Vitals: * Examination: G eneral Examination: E xplanation of presentation/need: Application for community support program. P sychiatry: ORIENTATION: : , yes. AFFECT: : , appropriate. MOOD: : , hopeful. SPEECH: n ormal/R/V/R. THOUGHT PROCESS: i ntact. THOUGHT CONTENT: u nremarkable. INSIGHT: : , fair. JUDGEMENT: : , fair. Suicide Risk Assessment S uicide Risk Factors None indicated.. Assessment: * Assessment: 1. M humble depressive disorder, recurrent, moderate - F33.1 (Primary) Plan: * Treatment: * Procedure Codes: 9 0791 PSYCH DIAGNOSTIC EVALUATION, Modifiers: AJ CHS08 [facility] * * RDOUS MATERIAL SPECIALIST Electronically co-signed by Rosy Astorga LCSW, [id number] on 12/09/2024 at 09:40 AM HAZARDOUS MATERIAL SPECIALIST Sign off status: Completed true * Provider: Sylvia Sanchez Date: 0 12/06/2024 Generated for Luc todd/Gatito/Susan on: 0 12/11/2024 09:45 AM HAZARDOUS MATERIAL SPECIALIST History and Physical Notes * HPI (History of Present Illness) Category Sub-Category Detail Notes Category Not es Initial Issues discussed: Client informe d her primary care and psychiatry providers she wanted to see if she qualified for a case therapist. This clinician called client to screen her for the community support program on this date. Client appears to meet eligibility requirements and her referral for this program was sent today. Counselor's action: Screened client for community support program and sent referral to Kristy Wren. Patient's response: Positive, in agreeme nt with referral. Follow-up plan: Await further commun ication from community support program. Strengths: . HIV Risk Assessment Screening : CSSRS Follow Up and Treatment Recommendations : Assessment of Social Determinants of Health:: Has A PRAPARE Been Completed In The Past Year? Has a PRAPARE Been Completed In The Past Year?: Yes Was It Completed Today Using SmartForm?: No aT For Mental Health Services Who Is Your Primary Care Provider? Do You Have A PCP?: Yes Do You Have A Psychiatric Provider? Do You Have A Psychiatric Provider?: Yes Do You Have Any Other Profes sional Supports? Do You Have Any Other Professional Supports?: No Consent Forms Completed During Appointme nt Consent Forms Completed: Consent To Treat, Health Care Providers CSSRS Interpretation and Follow Up Plan : Examination Category Sub-Category Detail Notes Category Not es Psychiatry ORIENTATION: :, yes AFFECT: :, appropriate MOOD: :, hopeful SPEECH: normal/R/V/R INSIGHT: :, fair JUDGEMENT: :, fair THOUGHT PROCESS: intact THOUGHT CONTENT: unremarkable Suicide Risk Assessment Suicide Risk Factors: No ne indicated. General Examination Explanat ion of presentation/need: Application for community support program.
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
--- NOTE | 2025-01-03 15:22 | WPDSLEEPSTUD ---
Sleep Study Date of Study: 12/11/24 Ordering Provider: ESTEBAN Foster Interpreting Physician: Romana Lam DO Sleep Study Type: Polysomnogram Height: 1.63 m Weight: 105.687 kg Body Mass Index: 39.9 Neck Circumference (inches): 17.5 Tavares: 13 Reason for Sleep Study Daytime hypersomnia Sleep History The patient is a 59-year-old female who had a sleep study ordered by the pulmonology group for evaluation of sleep apnea. The patient rarely awakens from sleep short of breath. She rarely awakens at night with heartburn, belching, or a cough. She constantly snores loudly enough that others complain. She frequently has trouble sleeping when she has a cold. She denies waking up gasping for air throughout the night. She occasionally sweats excessively at night. She rarely has heart palpitations or irregular heartbeats during the night. She occasionally falls asleep during the day but never while driving. She rarely experiences loss of muscle tone when extremely emotional. She frequently has trouble at school or work due to sleepiness. She denies feeling unable to move when waking up or falling asleep. She frequently experiences vivid dreamlike scenes upon awakening or falling asleep. She denies feeling afraid of going to sleep. She occasionally has nightmares. She denies remembering her dreams. She frequently has thoughts racing through her mind. She occasionally feels sad or depressed. She frequently has anxiety. She frequently has muscular tension. She denies noticing parts of her body jerk. She frequently kicks during the night. She occasionally has crawling and aching feelings in her legs and occasionally has leg pain during the night. She occasionally awakens with morning jaw pain. She is occasionally bothered by pain during the night. She is frequently stiff when she wakes up in the morning. She frequently wakes up with sore or achy muscles. She occasionally wakes up with pain in the neck, spine, or other joints. She goes to bed between 7 to 8 p.m. on both weekdays and weekends. It can take her several hours to fall asleep. She wakes up three to four times throughout the night for unknown reasons. She does not have a set wake-up time. She typically gets a minimum of 8 hours of sleep per night. She will stay in bed for up to 1 hour after waking up in the morning. She currently lives alone. She denies consuming any caffeinated beverages within 2 hours of bedtime. She denies engaging in physical exercise before bedtime. She will watch television before falling asleep. She will occasionally take naps in the afternoon or the evening. She consumes 1 to 2 caffeinated sodas per day and 1 to 2 coffees per day. She smokes 1 to 6 cigarettes per day. She rarely consumes alcoholic beverages. She denies recreational drug use. [facility] Past Medical History Medical History Chronic recurrent major depressive disorder Nicotine dependence, cigarettes, with other nicotine-induced disorders History of COPD History of substance abuse History of hypertension Spinal stenosis Fibromyalgia Diverticulitis Tobacco dependence Chronic obstructive pulmonary disease Bipolar disorder Anxiety Depression Surgical History Surgical History History of ankle surgery History of partial hysterectomy Family History Family History Father Acute myocardial infarction Congestive heart failure Hypertension Prostate carcinoma Sibling Chronic obstructive pulmonary disease Cerebrovascular accident Social History Social History Social History: Surrogate medical decision maker: Charito Fish, daughter. Code status: Full code. Smoking packs per day: 0.5 Smoking cigarettes per day: 10.0 Years smoked: 40 Smoking pack-years: 20.00 Smoking status: Current every day smoker Tobacco type: cigarettes Second hand tobacco smoke exposure: No Alcohol intake: current Drinks per week: 1 Substance use: current Substance use type: crack/cocaine and methamphetamine Last use: 09/10/23 Do You Feel Safe in your Home?: Yes Lack of Transportation: YES Lack of Food: Sometimes True Current Housing: I Have Housing Concerned About Future Housing: No Difficulty Paying Gas/Electric Bills: No Difficulty Paying for Meds: No Currently Unemployed: No Education: High School Diploma/GED Difficulty w/ Childcare or Family Care: No Spiritual care concerns: No Medications Home Medications ?Medication ?Instructions ?Recorded ?Confirmed ?Type famotidine 20 mg tablet 20 mg PO BID 01/02/23 08/30/24 History tiotropium bromide 18 mcg capsule 1 cap inhalation DAILY 01/02/23 08/30/24 History with inhalation device (Spiriva with HandiHaler) tizanidine 4 mg tablet 4 mg PO Q8H PRN Muscle Spasm 01/02/23 08/30/24 History albuterol sulfate 90 mcg/actuation 2 puff inhalation QID PRN 08/26/23 08/30/24 Rx aerosol inhaler shortness of breath or wheezing #8 grams budesonide-formoterol HFA 160 2 inh inhalation BID 09/12/23 08/30/24 History mcg-4.5 mcg/actuation aerosol inhaler (Symbicort) lisinopril 10 mg tablet 10 mg PO DAILY 09/12/23 08/30/24 History omeprazole 20 mg capsule,delayed 20 mg PO DAILY 09/12/23 08/30/24 History release albuterol sulfate 2.5 mg/3 mL 2.5 mg (3 mL) inhalation Q4-6H PRN 06/17/24 08/30/24 Rx (0.083 %) solution for nebulization shortness of breath or wheezing #360 mL brexpiprazole 0.25 mg tablet 0.25 mg PO DAILY 06/17/24 08/30/24 History (Rexulti) bupropion HCl 150 mg tablet,12 hr 150 mg PO DAILY 06/17/24 08/30/24 History sustained-release hydroxyzine pamoate 25 mg capsule 25 mg PO DAILY 06/17/24 08/30/24 History ferrous sulfate 325 mg (65 mg 325 mg PO DAILY 07/20/24 08/30/24 History iron) tablet (FeroSul) eszopiclone 2 mg tablet (Lunesta) 2 mg PO ONCE #1 tablet 08/30/24 08/30/24 Rx prednisone 10 mg tablet See Rx Instructions PO DAILY #34 10/29/24 Rx tabs amoxicillin 875 mg-potassium 1 tablet PO Q12H 10 days #20 tabs 11/04/24 Rx clavulanate 125 mg tablet Sleep Procedure A full night polysomnogram using the Kampyle multi-channel system recorded the standard physiologic parameters including EEG, EOG, submentalis EMG, anterior tibialis EMG, EKG, body position, nasal and oral airflow using nasal pressure sensor and thermistor.? Respiratory parameters of chest and abdominal movements were recorded with Respiratory Inductance Plethysmography belts. Oxygen saturation was recorded by pulse oximetry. Video monitoring was also performed. Sleep stages, periodic limb movements, and EEG arousals were scored in 30 second epochs according to the criteria of the AASM Scoring Manual. The Apnea-Hypopnea Index was calculated using [facility] guidelines for definition of hypopnea with 4% O2 desaturations while scoring respiratory events. Sleep Architecture The total recording time was 530.0 minutes.? The total sleep time was 465.0 minutes. Sleep latency was 14.2 minutes. REM latency was 98.5 minutes. Sleep efficiency was 87.7%. The patient had 43 awakenings for an awakening index of 5.5. Wake after sleep onset time was 51.0 minutes. The patient spent 77.5 minutes, 16.7% of total sleep time in Stage N1. The patient spent 266.0 minutes, 57.2% in Stage N2. The patient spent 37.0 minutes, 8.0% in Stage N3. The patient spent 84.5 minutes, 18.2% in Stage REM sleep. Respiratory Analysis The patient had 61 hypopneas, 1 mixed apneas, and 2 central apneas for an overall Apnea Hypopnea Index of 8.1. The REM Apnea Hypopnea Index was 8.5. The NREM Apnea Hypopnea Index was 8.2. The patient had a Central Apnea Hypopnea Index of 0.3. There was no evidence of Levi-Rizzo Respirations. Arousals There were 230 total arousals for an arousal index of 29.7. There were 172 spontaneous arousals for an index of 22.2. There were 25 arousals due to respiratory events for an index of 3.2. There were 16 arousals due to periodic limb movements for an index of 2.1.? There were 17 arousals due to isolated limb movements for an index of 2.2. Periodic Limb Movements The patient had 56 isolated limb movements with an index of 7.2. The patient had 80 periodic limb movements with an index of 10.3. Patient had a total of 136 limb movements with a total limb movement index of 17.5. Oximetry Data The patient had an average oxygen saturation of 91.8% in sleep with a minimum oxygen saturation of 84.0% and a maximum oxygen saturation of 98.0%. The patient had 100 oxygen desaturations that were 4% or greater resulting in an Oxygen Desaturation Index of 12.9.? The patient spent 3.6 minutes, 0.7% of total sleep time with an oxygen saturation below 88%. Snoring Profile Mild to moderate snoring was present throughout the study. Cardiac Profile The EKG showed normal sinus rhythm.?No arrhythmias or premature beats were seen. The patient had an average pulse rate of 82.4 bpm with a minimum pulse of rate of 72.0 bpm and a maximum pulse rate of 101.0 bpm.? EEG Profile No signs of seizure activity seen. Alpha intrusion was present. Assessment and Plan Assessment and Plan (1) ALVARO (obstructive sleep apnea): Code(s): G47.33 - Obstructive sleep apnea (adult) (pediatric) Status: Acute Assessment and Plan: The patient had an overall AHI of 8.1 with desaturation down to 84%. This is consistent with mild sleep apnea. Due to the patient's excessive daytime sleepiness, she qualifies for treatment. I recommend that the patient be prescribed Resmed AutoPAP 5-15 cm H2O, CPAP mask/filters/tubing and heated humidity. A mandibular advancement device is also an acceptable treatment option. This should be used with all episodes of sleep.? Compliance should be reviewed within 31-90 days of starting therapy for usage greater than 4 hours per night greater than 70% of the nights. The patient should be asked about symptoms such as?excessive daytime sleepiness, quality of sleep, decreased nocturia, increased?mental functioning such as memory, mood, and concentration. Alpha intrusion was seen during the sleep study. Alpha intrusion, also known as alpha-delta sleep, is an EEG finding where alpha waves are present during NREM sleep. Alpha waves are typically present in wake. While alpha intrusion can be seen in a small subset of healthy individuals, it is often found in patients with depression, fibromyalgia, chronic pain and other sleep disorders. Clinically, alpha intrusion presents as non-restorative sleep. Treatment of alpha intrusion is directed towards the underlying cause. The patient's sleep history is suggestive of Restless Leg Syndrome. I recommend that the patient have a serum ferritin drawn for evaluation of iron deficiency anemia. If the patient has a serum ferritin less than 75 ng/mL, I recommend starting a daily iron supplement and a Vitamin C supplement for better absorption. If the serum ferritin is greater than 75 ng/mL, I recommend starting a dopamine agonist and titrating the dose until symptoms resolve. There are nonpharmacological methods to treat limb movements including daily exercise, stretching calf muscles before bed, avoiding excessive amounts of caffeine and alcohol, vitamin B supplementation, magnesium lotion massaged into legs before bed, and use of a weighted blanket. Data The data obtained during this sleep study is adequate for interpretation. Certification This sleep study has been reviewed by a board certified sleep medicine physician.
[2025-01-03 15:23] VITALS: BMI 39.9
== END 2024-12-12 07:29 | disposition home or self-care (01) ==
LOC: ANHCSM 09:12
PROVIDERS: PCP Internal Medicine; Visit Provider Physician Assistant
DX: G47.33 Obstructive sleep apnea (adult) (pediatric) (principal); G47.10 Hypersomnia, unspecified; F39 Unspecified mood [affective] disorder
CPT/HCPCS: 95810

== ENCOUNTER 2025-01-21 07:25 | Outpatient (CLI) | payer OTHER, SELFPAY ==
--- NOTE | ~2025-01-21 | US_ITS ---
Ultrasound of the Abdominal Aorta INDICATION: Abdominal aortic aneurysm TECHNIQUE: Grayscale, color Doppler, and pulsed Doppler images of the aorta and common iliac arteries were obtained. COMPARISON: None. FINDINGS: Maximum vascular dimensions are as follows: Proximal aorta: 2.2 cm Mid aorta: 1.9 cm Distal aorta: 2.0 cm Common iliac arteries are not well seen. There is no evidence of abdominal aortic aneurysm. IMPRESSION: No abdominal aortic aneurysm. Reviewed, dictated and finalized at location .
--- OUTSIDE RECORDS SUMMARY | 2025-01-21 07:28 | XMS_ITS | Clinical Summary ---
Author Organization [facility] Address [address] [place] [address] Care Team Providers Care Equity Manager Name Role Phone Leela Sewell KAT Primary Care Provider [phone] Allergies No known active allergies Active Problems Problem Noted Date Diagnosed Date Lumbar radiculopathy 09/11/2018 Overview (09/11/2018): Added automatically from request for surgery [id number] Family History Medical History Relation Comments Lung [...] Comments Blood Pressure 114/83 09/28/2023 5:00 AM ENVIRONMENTAL MANAGEMENT SPECIALIST Pulse 111 09/28/2023 5:00 AM ENVIRONMENTAL MANAGEMENT SPECIALIST Temperature 36.9 C (98.5 F) 09/28/2023 2:21 AM ENVIRONMENTAL MANAGEMENT SPECIALIST Respiratory Rate 20 09/28/2023 2:21 AM ENVIRONMENTAL MANAGEMENT SPECIALIST Oxygen Saturation 93% 09/28/2023 5:00 AM ENVIRONMENTAL MANAGEMENT SPECIALIST Inhaled Oxygen Concentration - - Weight 90.7 kg (200 lb) 09/28/2023 2:32 AM ENVIRONMENTAL MANAGEMENT SPECIALIST Height 162.6 cm (5' 4 ) 09/28/2023 2:32 AM ENVIRONMENTAL MANAGEMENT SPECIALIST Body Mass Index 34.33 09/28/2023 2:32 AM ENVIRONMENTAL MANAGEMENT SPECIALIST Plan of Treatment Health Maintenance Due Date Last Done Comments Cervical Cancer Screening Pa p Smear (Age 30 to 64) Every 3 Years 1963 Colorectal Cancer Screening Colonoscopy (10 Years) 1963 Annual Physical 1966 Hepatitis C 1981 Cervical Cancer Screening Pa p with HPV Testing (Age 30 to 64) Every 5 Years 1993 Cervical Cancer Screening with HPV 1993 Mammogram Screening 2003 Zoster Vaccines (1 of 2) 2013 COVID-19 Vaccine (2 - 2023-2 5 season) 2024 04/23/2021 DTaP, Tdap and Td Vaccines ( 2 - Td or Tdap) 05/08/2031 05/08/2021 RSV Immunization or 60+ Years (1 - 1-dose 75+ series) 2038 Pneumococcal Vaccine: Pediat rics (0 to 5 Years) and At-Risk Patients (6 to 49 Years) Aged Out 08/05/2015 No longer eligi ble based on patient's age to complete this topic Meningococcal B Vaccine Aged Out No l onger eligible based on patient's age to complete this topic Meningococcal Vaccine Aged Out No carlos jordan eligible based on patient's age to complete this topic RSV Immunizations Under 20 Months Aged Out No longer eligible based on patient's age to complete this topic Insurance Care Teams Equity Manager Relationship Specialty Start Date End Date Leela Sewell NP [address] [facility] [address] [place] [address] PCP - General 09/30/15
--- OUTSIDE RECORDS SUMMARY | 2025-01-21 07:28 | XMS_ITS | Referral Summary ---
Author Organization [facility] Address [address] [place] [address] Care Team Providers Care Cutter Head Sharpener Name Role Phone Sean Lee MD Unavailable Myron Ruelas MD Unavailable [phone] Estiven Alvarado MD Primary Care Provider [phone] Encounters Date Type Department Care Team Description 01/20/2025 Telephone [facility] Group Orthopedics and Sports Medicine [address] [facility] [address] [place] [address] Ozzy Waller MD from Last 3 Months Allergies No known active allergies Medications Symbicort [...] (10 mg total) by mouth daily 03/25/20 Active ibuprofen (ADVIL,MOTRIN) 600 mg tablet Take 1 tablet (600 mg total) by mouth 3 (three) times a day Active hydrOXYzine (VISTARIL) 25 mg capsule Take 1 capsule (25 mg total) by mouth 03/25/20 24 Active dextromethorphan- guaiFENesin (ROBITUSSIN-DM) 2-20 mg/mL liquid Take 5 mL by mouth every 12 (twelve) hours 02/05/20 Active folic acid (FOLVITE) 1 mg tablet Take 1 tablet (1 mg total) by mouth daily Active fluticasone propionate (FLONASE) 50 mcg/actuation nasal spray Administer 1 spray into each nostril daily Active FeroSuL 325 mg (65 mg iron) tablet Take 1 tablet (325 mg total) by mouth daily with breakfast 03/25/20 Active cholecalciferol (VITAMIN D-3) 2000 unit capsule [...] (04/03/2024): Added automatically from request for surgery [id number] Added automatically from request for surgery [id number] Gastroesophageal reflux disease without esophagi tis 11/28/2017 [...] on file Legal Sex 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 MD: 02:34 PM 02:[address] [facility] [EOD] Narrative 02/20/2014 2:38 PM CDT EXAMINATION: [...] Xavier M.D. MD: 02:34 PM 02:[address] [facility] [EOD] Rosemarie Siegel DO IMG MAMMO PROCEDURES F inal Result from Last 3 Months or Most Recently Relevant to Health Maintenance [facility] Member Subscriber Plan / Payer (Ef fective 2023-Present) Name:Nohelia Cyr Relation to Subscriber:Self Name:Nohelia Cyr Payer ID:[id number] (NAIC) Group ID:Not on file Type:MEDICAID RISK OTHER Address: ATTN: CLAIMS DEPT [address] [facility] [place] [id number] [facility] Advance Directives For more information, please contact: [phone] * Full Code (Latest Code Status on File) Date Activated Date Inactivated Comments 12/13/2021 9:52 AM 12/13/2021 6:25 PM * Full Code Date Activated Date Inactivated Comments 08/11/2021 6:32 PM 08/19/2021 1:49 AM Care Teams Cutter Head Sharpener Relationship Specialty Start Date End Date Estiven Alvarado MD [address] [place] [address] PCP - General Internal Medicine 02/22/24 Sean Lee MD [facility] [address] [place] [address] Consulting Physician Pulmonary Disease 08/18/21 Myron Ruelas MD 6 [facility] [address] [place] [address] Consulting Physician Pulmonary Disease 12/13/21
--- OUTSIDE RECORDS SUMMARY | 2025-01-21 07:28 | XMS_ITS | CONTINUITY OF CARE DOCUMENT ---
Author Name nena barrett Address Unknown Organization [facility] Address [address] [facility] [address] [place] [address] Phone [phone] Care Team Providers Care Superintendent Service Name Role Phone Andrei Canales MD Unavailable ERNESTO VILLALOBOS MD Unavailable [phone] NISHI HOLLOWAY MD Unavailable [phone] INSURANCE PROVIDERS Payer name Policy type / Coverage type [facility] democrat ID AETNA [facility] Medicaid [id number]
--- OUTSIDE RECORDS SUMMARY | 2025-01-21 07:28 | XMS_ITS | Clinical Summary ---
Author Organization [facility] Address [address] [place] [address] Care Team Providers Care Aircraft Communicator Name Role Phone Sean Lee MD Unavailable [phone] Myron Ruelas MD Unavailable [phone] Estiven Alvarado MD Primary Care Provider [phone] Allergies No known active allergies Medications Symbicort [...] (04/03/2024): Added automatically from request for surgery [id number] Added automatically from request for surgery [id number] Gastroesophageal reflux disease without esophagi tis 11/28/2017 Irritable bowel syndrome with diarrhea 8 Back pain 11/27/2017 Cannabis abuse 11/27/2017 Cocaine abuse 11/27/2017 Major depressive disorder 11/27/2017 Encounters Date Type Department Care Team Description 01/20/2025 Telephone [facility] Medical Group Orthopedics and Sports Medicine [address] [facility] [address] [address] Ozzy Waller MD from Last 3 Months Immunizations Immunization Administration Dates Next Due Influenza, Quadrivalent, Spl it, Preservative Free, Intramuscular 08/16/2021 Tdap 05/08/2021 Surgical History Surgery Date Site/Laterality Comments CO REPAIR FIRST ABDOMINAL WA LL HERNIA Ventral Hernia Repair - (Added by TW Conv) CO LIG/TRNSXJ FLP TUBE ABDL/ VAG APPR UNI/BI Tubal Ligation - (Added by TW Conv) CO TOTAL ABDOMINAL HYSTERECT W/WO RMVL TUBE OVARY [...] on file Legal Sex Female 12:22 AM ORDER MANAGER Gender Identity Not on file Sexual Orientation [...] Breast Cancer Screening-Mammogram 02/17/2015 014 Covid-19 Vaccine (4 - 2023-2 5 season) 2024 11/21/2023, 05/23/2021, 04/23/2021 Influenza Vaccine (Season Ended) 2025 08/16/2021, 07/13/2018, 08/05/2015, Additional history exists DTaP/Tdap/Td Vaccine [...] Xavier M.D. MD: 02:34 PM 02:34 PM [facility] [EOD] Narrative 02/20/2014 2:38 PM CDT EXAMINATION: [...] Xavier M.D. MD: 02:34 PM 02:34 PM [facility] [EOD] [facility] DO IMG MAMMO PROCEDURES F inal Result from Last 3 Months or Most Recently Relevant to Health Maintenance Insurance AETNA [facility] Advance Directives For more information, please contact: [phone] * Full Code (Latest Code Status on File) Date Activated Date Inactivated Comments 12/13/2021 9:52 AM 12/13/2021 6:25 PM * Full Code Date Activated Date Inactivated Comments 08/11/2021 6:32 PM 08/19/2021 1:49 AM Care Teams Aircraft Communicator Relationship Specialty Start Date End Date Estiven Alvarado MD [address] [facility] [place] [address] PCP - General Internal Medicine 02/22/24 Sean Lee MD 6 [facility] [address] [place], [place] [id number] Consulting Physician Pulmonary Disease 08/18/21 Myron Ruelas MD 6 [facility] [address] [place], [place] [id number] Consulting Physician Pulmonary Disease 12/13/21
--- OUTSIDE RECORDS SUMMARY | 2025-01-21 07:29 | XMS_ITS | Continuity of Care Document ---
Author Organization [facility] Address [address] [place] [address] Phone Care Team Providers Care Event Attendant Name Role Phone Cameron Houser MD, FACS Unavailable Unavailab le Advance Directives Directive Yes / No Effective Date File Name No Information Encounters Encounter Description Practice Location Reason(s) For Visit Diagnoses Date Provider Providers Copied on Encounter Located within [facility], [address], [place], [place], [id number], tel:[phone] SEC Analilia Harrington No Information 0 Corrina Barnes. [address], [address], [place], [place], [id number], [place]. tel:[phone] Family History Family Member Type Diagnosis Age At Onset No Information Payers Payer name Insurance type Covered republican ID Authoriza tion(s) Medicaid [facility] [id number] Social History Type Description Quantity Date Captured Comments Sex Female Smoking Status No Information Chief Complaint And Reason For Visit No Information Reason For Referral Reason For Referral No Information History Of Present Illness Encounter Date Complaint History Of Prese nt Illness No Information Functional Status Date Functional Assessmen t No Information Instructions Date Instruction Additional Infor mation No Information Assessments Type Assessment Date No Information Patient Care Teams Name Effective Dates (start - stop) Status Members No Information
--- OUTSIDE RECORDS SUMMARY | 2025-01-21 07:29 | XMS_ITS ---
Author Organization [facility] Address [address] [place] [address] Care Team Providers Care Restaurant Hospitality Manager Name Role Phone Estiven Alvarado Primary Care Provider Sam Hernandez Unavailable [phone] REASON FOR VISIT Refill Social History Sex Assigned At : Social History Observation Description Sex Assigned At Female Encounters Encounter Location Date Provider Diagnosis [address] [place] [address] 01/13/2025 Sam Hernandez Plan Of Treatment No Information Progress Notes * Nohelia CYRDOB:1965 (59 yo F)Acc No.[id number]:01/13/2025 Patient: La ALEJOJOSENohelia :1965 A ge:59 Y S ex:Female Address:[address] [place] [address] [address], [place], [address] * true * Date: Generated for Carmeloi ng/Faritog/eTransmitting on: 0 01/21/2025 07:29 AM CDT
--- OUTSIDE RECORDS SUMMARY | 2025-01-21 07:29 | XMS_ITS | Encounter Summary ---
Author Organization [facility] Healthcare Address [address] [place] [address] Care Team Providers Care Senior Environmental Scientist Name Role Phone Sean Lee MD Unavailable [phone] Myron Ruelas MD Unavailable [phone] Estiven Alvarado MD Primary Care Provider [phone] Reason for Referral * Consultation (Routine) - Canceled Specialty Diagnoses / Procedures Referred By Contmichelle t Referred To Contact Physical Therapy Diagnoses Rotator cuff arthropathy of right shoulder Chronic right shoulder pain Jimmy Waller MD [address] [place] [address] DR PELON Mcnair [address] [address] Phone: tel: fax: Jimmy Waller MD [address] [place] [address] DR PELON Mcnair [address] [address] Phone: tel: fax: Referral ID Status Reason Start Date Expiration Date V isits Requested Visits Authorized [id number] Canceled Evaluate and Treat 07/05/2024 08/04/2025 24 24 Question Answer PTRFR PT Evaluate and Treat Reason for Visit Rt shoulder pain/ Arthropathy Therapy options discussed with patient? Yes Location provided for therapy services is: Patient requested/Patient preferred Please select the performing region: External Order [171] To provider: JIMMY WALLER [[id number]] # of visits: 24 * MRI/CAT/PET Scan (Routine) - Authorized Specialty Diagnoses / Procedures Referred By Viri t Referred To Contact Diagnoses Rotator cuff arthropathy of right shoulder Procedures CT Shoulder Right WO Contrast Jimmy Waller MD [address] [facility] [address] PELON Mcnair [address] [address] Phone: tel: fax: External Order Referral ID Status Reason Start Date Expiration Date V isits Requested Visits Authorized [id number] Authorized 07/03/2024 08/02/2025 1 1 Encounter Details Date Type Department Care Team (Late st Contact Info) Description 06/27/2024 Telephone [facility] Orthopedic and Sports Medicine [address] [place] [phone] Jimmy Waller MD [address] [facility] [address] PELON Mcnair [address] [address] Social History Tobacco Use Types Packs/Day Years [...] on file 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 A date of 03/06/2025 has been saved for an overnight right reverse total shoulder arthroplasty. Will be working on an auth for CT. * Addendum Note - Wenceslao Lea MA - 07/05/2024 8:51 AM CDTAddended by: WENCESLAO LEA on: 07/05/2024 08:51 AM Modules accepted: Orders * Telephone Encounter - Wenceslao Lea MA - 07/05/2024 8:48 AM CDT Faxed PT order to [facility], fax [phone]. Thank you * Telephone Encounter - Shama Eason - 07/04/2024 12:30 PM CDT Patient called and left a voicemail stating she is wanting to have her PT go to [facility] in [place] or someone else closer to her home. * Telephone Encounter - Radha Pedersen MA - 07/04/2024 10:04 AM CDT I have completed the PA for this. I am waiting for an answer * Telephone Encounter - Radha Pedersen MA - 07/03/2024 4:39 PM CDT I have made the order, I still need to precert it, * Addendum Note - Radha Pedersen MA - 07/03/2024 2:45 PM CDTAddended by: RADHA PEDERSEN on: 07/03/2024 02:45 PM Modules accepted: Orders * Telephone Encounter - Ca Gillis - 07/02/2024 12:25 PM CDT Patient called in and LVM requesting that MRI order be updated to be done at [facility]. Please update order and work on auth. Thank you. * Telephone Encounter - Yamini Pizarro MA - 06/27/2024 12:32 PM CDT Noted and updated. * Telephone Encounter - Erick Quiroz ATC - 06/27/2024 9:42 AM CDT Called Nohelia to see if she would want to do her pre op [facility] in [place] which is near where she lives? * Telephone Encounter - Erick Quiroz ATC - 06/27/2024 9:29 AM CDT Procedure: Right Reverse Total Shoulder Arthroplasty DOS: TBD Surgery Clearance Checklist: [x] PCP: [facility] [] Cardiology: [] Endocrinology: [] Pulmonology: [] Neurology: [] Other: Blood Thinner: [] Yes Name of medication: [x] No Is patient a Diabetic: [] Yes [x] No Preferred Outpatient Physical Therapy location: Reviewed with patient surgery clearance requirements that forms must be returned to our office no later than 72 hours prior to surgery. Later than 72 hours may cause patients surgery to be cancelled and/or rescheduled. Reviewed with patient that appointments with the above provider should be scheduled in a timely manner, and recommend appointments be made no later than 3 weeks prior to surgery. For Total Arthoplasty Surgery: Reviewed with patient labs to be completed prior to surgery, advisedthese must be completed no more than 30 days prior to surgery. Patient was advised to completely these early on in the 30 day window to allow time to address abnormal results if they arise. Labs are to be completed at: [facility] Medications to be discontinued prior to surgery were reviewed with patient, and hand out provided listing when to stop prior to surgery. Patient instructed to contact PCP and/or prescribing provider with questions about when to discontinue prior to surgery. For blood thinners, patient was instructed to speak with prescribing provider about when to discontinue and was advised our office needs documentation on when to stop prior to surgery. This can be completed on the form provided for the patient. Reviewed with patient use of surgical soap prior to surgery. Patient was instructed to use the evening before and the morning of surgery. Advised to not wash hair, face, genital, or rectal area. Patient expressed full understanding of the above in preparation for surgery. Patient was advised to contact our office if any questions or concerns arise prior to surgery. MA/ATC Name: Erick Quiroz ATC documented in this encounter Plan of Treatment Scheduled Orders Name Type Priority Associated Diagnoses Orde r Schedule CT Shoulder Right WO Contrast Imaging Schedule Routine, Read Routine (OP Routine) Rotator cuff arthropathy of right shoulder Expected: 07/03/2024, Expires: 07/03/2025 Scheduled Referrals Name Type Priority Associated Diagnoses Orde r Schedule Ambulatory referral order to Physical Therapy - Outpatient Referral Routine Rotator cuff arthropathy of right shoulder Chronic right shoulder pain Expected: 07/12/2024 (Approximate), Expires: 07/05/2025 documented as of this encounter Visit Diagnoses Diagnosis Rotator cuff arthropathy of right shoulder- Primary Chronic right shoulder pain Pain in joint, shoulder region documented in this encounter Care Teams Senior Environmental Scientist Relationship Specialty Start Date End Date Estiven Alvarado MD [address] [facility] [place] [address] PCP - General Internal Medicine 02/22/24 Sean Lee MD [address] [facility] [address] [address] [place] [address] Consulting Physician Pulmonary Disease 08/18/21 Myron Ruelas MD [address] [place], [place] [id number] Consulting Physician Pulmonary Disease 12/13/21 documented as of this encounter
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
--- OUTSIDE RECORDS SUMMARY | 2025-01-21 07:29 | XMS_ITS ---
Author Organization Formerly [facility] Address [address] [place] [address] Care Team Providers Care Municipal [address] Judge Name Role Phone Estiven Alvarado Primary Care Provider Sam Hernandez Unavailable [phone] Allergies No Known Allergies REASON FOR VISIT follow up Medications Medication SIG (Take, Route, Frequency, Duration) Notes Start Date End Date Status Budesonide-Formoterol Fumarate 160-4.5 MCG/ACT 2 puffs Inhalation every 12 hours for 30 days Active Famotidine 20 MG 1 tablet Orally Twic e a day for 30 days Active Metoprolol Succinate ER 50 MG 1 tablet Orally Once a day for 30 days 01/03/2025 Active Albuterol Sulfate (2.5 MG/3ML) 0.083% 3 mL as needed Inhalation every 6 hrs for 30 days 06/19/2024 Active Trintellix 10 MG 1 tablet Orally Once a day for 9 days 09/02/2024 Active hydrOXYzine Pamoate 25 MG 1 capsule Oral ly twice a day for 9 days 10/05/2023 Active Symbicort 160-4.5 MCG/ACT 2 puffs Inhala tion Twice a day Active Rollator Ultra-Light - USE AMBULATING EXTERNALLY DAILY 01/30/2023 Active Loratadine 10 MG 1 tablet Orally Once a day Active Fluticasone Propionate 50 MCG/ACT 2 sprays in each nostril Nasally Once a day Active Ventolin HFA 108 (90 Base) MCG/ACT 2 puffs as needed Inhalation every 4 hrs Active Cyanocobalamin 1000 MCG two tablets Oral ly Once a day 11/04/2022 Active Folic Acid 1 MG 1 tablet Orally Once a day Active Spiriva HandiHaler 18 MCG 1 capsule by i nhaling the contents of the capsule using the HandiHaler device Inhalation Once a day Active Social History Tobacco Use: Social History Observation Description Date Details (start date - stop date) Current Smoker NA - NA Sex Assigned At : Social History Observation Description Sex Assigned At Female Dont use, Tobacco Use/Smoking Question Answer Notes Are you a current every day smoker Additional Findings: Tobacco User Moderate cigar ette smoker (10-19 cigs/day) Tobacco Control (Standard) Question Answer Notes Tobacco use: Current every day smoker Additional Findings: Tobacco user Light cigarett e smoker (1-9 cigs/day) Section Notes: GED. Unemployed. She receive s SSDI for depression since 1995. Problems Problem Type SNOMED Code ICD Code Onset Dates Problem Status W/U Status Risk Notes Problem Hypertension (25388959) Hypertension (I10) Active confirmed Vital Signs Weight 228 lbs 01/03/2025 Height 63.5 in 01/03/2025 BMI 39.75 kg/m2 01/03/2025 Blood pressure systolic 146 mm Hg 01/04/20 25 Blood pressure diastolic 82 mm Hg 025 Heart Rate 124 /min 01/03/2025 Oximetry 98 % 01/03/2025 Temperature 97.3 degrees Fahrenheit 01/04/20 25 Respiratory Rate 16 /min 01/03/2025 Encounters Encounter Location Date Provider Diagnosis [address] [place] [address] 01/03/2025 Estiven Alvarado Vitamin B12 deficien cy E53.8 ; COPD (chronic obstructive pulmonary disease) J44.9 ; Chronic fatigue R53.82 ; Breast cancer screening Z12.39 ; Abdominal aortic aneurysm (AAA) without rupture, unspecified part I71.40 and Hypertension I10 Assessments Encounter Date Diagnosis (ICD Code) Assessment Notes Treatment Notes Treatment Clinical Notes Section Notes 01/03/2025 Vitamin B12 deficiency (ICD-10 - E53.8) 01/03/2025 COPD (chronic obstructive pulmonary disease) (ICD-10 - J44.9) 01/03/2025 Chronic fatigue (ICD-10 - R53.82) 01/03/2025 Breast cancer screening (ICD-10 - Z12.39) 01/03/2025 Abdominal aortic aneurysm (AAA) without rupture, unspecified part (ICD-10 - I71.40) 01/03/2025 Hypertension (ICD-10 - I10) Plan Of Treatment Medication Medication Name Sig Start Date Stop Date Notes Budesonide-Formoterol Fumara te 160-4.5 MCG/ACT 2 puffs Inhalation every 12 hours for 30 days Famotidine 20 MG 1 tablet Orally Twic e a day for 30 days Metoprolol Succinate ER 50 MG 1 tablet O rally Once a day for 30 days 01/03/2025 Ventolin HFA 108 (90 Base) MCG/ACT 2 puffs as needed Inhalation every 4 hrs Cyanocobalamin 1000 MCG two tablets Oral ly Once a day 11/04/2022 Folic Acid 1 MG 1 tablet Orally Once a day Spiriva HandiHaler 18 MCG 1 capsule by i nhaling the contents of the capsule using the HandiHaler device Inhalation Once a day Future Test Test Name Order Date Ultrasound : Abd/Aorta Comp 01/03/2025 Mammogram Breast - Bilateral Screening with ABUS, diagnostic mammogram/ultrasound, and/or biopsy as clinically indicated 01/03/2025 Next Appt Details Follow Up: 3 Months, Reason: APPT AND ANNUAL LABS Progress Notes * Nohelia MORALESDOB:1965 (59 yo F)Acc No.[id number]:01/03/2025 Progress Notes Patient: La ALEJOLeandro GARCIAyne Provider: Roselia Alvarado :1965 A ge:59 Y S ex:Female Date:01/03/2025 Address:[address] [place], [place] [id number] Check In:01:41 PM [employer] Subjective: * Chief Complaints: * F ollow up * HPI: I nterim History: OFF RESP MEDS AND B12 AND GERD MED FOR A FEW WEEKS. TAKING PSYCH MEDS. MOVED TO [place]. DENIED CP. STOPPED METH USE 07/2024. NO DRINKING FOR OVER 6 MONTHS PRIOR TO THAT. STILL SMOKES CIGARETTES. HAS CHANTIX AT HOME BUT IS NOT READY TO USE IT. HAD SLEEP STUDY ABOUT 3 WEEKS AGO BUT HAS NOT HEARD RESULT YET. FEELING GOOD OVERALL. LIKES HER NEW APT. Emergency room visit N o. Was hospitalized Y es. D epression Screening: PHQ-9 L ittle interest or pleasure in doing things?Not at all F eeling down, depressed, or hopeless N ot at all T rouble falling or staying asleep, or sleeping too much S everal days F eeling tired or having little energy M ore than half the days P oor appetite or overeating S everal days F eeling bad about yourself or that you are a failure, or have let yourself or your family down N ot at all T rouble concentrating on things, such as reading the newspaper or watching television N ot at all M oving or speaking so slowly that other people could have noticed; or the opposite, being so fidgety or restless that you have been moving around a lot more than usual N ot at all T houghts that you would be better off or of hurting yourself in some way N ot at all T otal Score 4 I nterpretation M inimal Depression C SSRS Interpretation and Follow Up Plan: CSSRS Interpretation and Follow Up Plan C SSRS Screen documented using SF Y es R isk Disposition from SF L ow - No Follow Up Plan Required F ollow Up Plan N o Follow Up Plan required at this time. T imeframe of Screening T alcon S creening: [place] Suicide Severity Rating Scale (LF) D o you want to initiate with S creener form 1 . Wish to be : Have you wished you were or wished you could go to sleep and not wake up? N o 2 . Suicidal Thoughts: Have you actually had any thoughts of killing yourself? N o 6 . Suicide Behavior Question: Have you ever done anything,started to do anything, or prepared to end your life? N o I nterpretation: L ow Risk * ROS: B asic ROS: Admits F elisejcarloskwame. * Medical History: * Surgical History: r ight ankle surgery partial hysterectomy * Hospitalization/Major Diagno stic Procedure: R ecent hospitalization 9 day stay [facility] [place] 2020Hospitalization r/t [facility] [place] 2COPD flare up 12/2022 * Family History: Matteo enriquehter(s): alive. 1 daughter(s) - healthy. . * Social History: P rimary Social History: L iving Arrangement L iving Arrangement: D ependent Living L iving with: Scott smith I s this a supportive environment? Y es Alcohol Use A lcohol Use Frequency: N ever Recovering alcoholic Illicit Substance Usage I llicit Substance Usage: N o Recovering addict Employment Status E mployment Status: O n Disability T obacco Use: D ont use, Tobacco Use/Smoking A re you a c urrent every day smoker A dditional Findings: Tobacco User M oderate cigarette smoker (10-19 cigs/day) Tobacco Control (Standard) T obacco use: C urrent every day smoker A dditional Findings: Tobacco user L ight cigarette smoker (1-9 cigs/day) M iscellaneous: M ethod of learning P referred method of learning: D emonstration G ED. Unemployed. She receives SSDI for depression since 1995. * Medications: T akingBudesonide-Formoterol Fumarate 160-4.5 MCG/ACT Aerosol 2 puffs Inhalation every 12 hours Cyanocobalamin 1000 MCG Tablet two tablets Orally Once a day Rollator Ultra-Light - Miscellaneous USE [...] puffs as needed Inhalation every 4 hrs Albuterol Sulfate (2.5 MG/3ML) 0.083% Nebulization Solution 3 mL as needed Inhalation every 6 hrs Trintellix 10 MG Tablet 1 tablet Orally Once a day hydrOXYzine Pamoate 25 MG Capsule 1 capsule Orally twice a day Taking Budesonide-Formoterol Fumarate 160- 4.5 MCG/ACT Aerosol 2 puffs Inhalation every 12 hours Taking Cyanocobalamin 1000 MCG Tablet two tablets Orally Once a day Taking Rollator Ultra-Light - Miscellaneous USE AMBULATING [...] as needed Inhalation every 4 hrs Taking Albuterol Sulfate (2.5 MG/3ML) 0.083% Nebulization Solution 3 mL as needed Inhalation every 6 hrs Taking Trintellix 10 MG Tablet 1 tablet Orally Once a day Taking hydrOXYzine Pamoate 25 MG Capsule 1 capsule Orally twice a day Not-TakingFamotidine 20 MG Tablet 1 tablet Orally Twice a day Folic Acid 1 MG Tablet 1 tablet Orally Once a day Not-Taking Famotidine 20 MG Tablet 1 tablet Orally Twice a day Not-Taking Folic Acid 1 MG Tablet 1 tablet Orally Once a day DiscontinuedtiZANidine HCl 4 MG Tablet 1 tablet as needed Orally Three times a day Vitamin D3 50 MCG (2000 UT) Capsule 2 capsule Orally Once a day Thiamine HCl 100 MG Tablet 1 tablet Orally Once a day Multivitamin - Tablet 1 tablet Orally Once a day Acetaminophen 500 MG Tablet two tablets NEEDED FOR PAIN Orally three times daily Ibuprofen 600 MG Tablet 1 tablet with food or milk as needed FOR PAIN Orally Three times a day LORazepam 1 MG Tablet 1 tablet Orally once As needed one hour prior to MRIpredniSONE 20 MG Tablet 2 tablets Orally Once a day Promethazine-DM 6.25-15 MG/5ML Syrup 5 mL as needed Orally every 6 hrs Discontinued tiZANidine HCl 4 MG Tablet 1 tablet as needed Orally Three times a day Discontinued Vitamin D3 50 MCG (2000 UT) Capsule 2 capsule Orally Once a day Discontinued Thiamine HCl 100 MG Tablet 1 tablet Orally Once a day Discontinued Multivitamin - Tablet 1 tablet Orally Once a day Discontinued Acetaminophen 500 MG Tablet two tablets NEEDED FOR PAIN Orally three times daily Discontinued Ibuprofen 600 MG Tablet 1 tablet with food or milk as needed FOR PAIN Orally Three times a day Discontinued LORazepam 1 MG Tablet 1 tablet Orally once As needed one hour prior to MRIDiscontinued predniSONE 20 MG Tablet 2 tablets Orally Once a day Discontinued Promethazine-DM 6.25-15 MG/5ML Syrup 5 mL as needed Orally every 6 hrs * Allergies: N .K.D.A.no[Allergies Verified] Objective: * Vitals: I nitials: sw, Wt:228, Ht: 63.5, BMI:39.75, BP:146/82, HR:124, Oxygen sat %:98, Temp:97.3, RR:16, LMP: hysto, Pain scale:0. * Examination: G eneral Examination: GENERAL APPEARANCE: w ell developed, well nourished, in no acute distress. HEAD: n ormocephalic, atraumatic. EYES: P ERRLA, sclera and conjunctiva clear. EARS External ears intact. NOSE: n leighann patent, no lesions, septum intact. ORAL CAVITY: m ucosa moist. THROAT: n o erythema, no exudate, pharynx normal. NECK/THYROID: n o JVD, no goiter. SKIN: w arm and dry, no rashes. HEART: r egular rate and rhythm, no murmurs. LUNGS: i ncreased AP diameter, COARSE BS DIFFUSELY, NO CRACKLES, WHEEZES, OR RHONCHI. ABDOMEN: b owel sounds present, soft, nontender, nondistended, no masses palpable, no organomegaly . MUSCULOSKELETAL: n o joint deformity, swelling, redness, or warmth , LUANNE upper and lower extremities. EXTREMITIES: n o clubbing, cyanosis, or edema. NEUROLOGIC: c ranial nerves 2-12 grossly intact. Assessment: * Assessment: 1. C OPD (chronic obstructive pulmonary disease) - J44.9 (Primary) 2 . V itamin B12 deficiency - E53.8 3 . C hronic fatigue - R53.82 4 .?Breast cancer screening - Z12.39 5 . A bdominal aortic aneurysm (AAA) without rupture, unspecified part - I71.40 6 . H ypertension - I10 Plan: * Treatment: 2. V itamin B12 deficiency Refill Cyanocobalamin Tablet, 1000 MCG, two tablets, Orally, Once a day, 60, Refills 11; R efill Folic Acid Tablet, 1 MG, 1 tablet, Orally, Once a day, 30, Refills 11. 3. B reast cancer screening I maging: Mammogram Breast - Bilateral Screening with ABUS, diagnostic mammogram/ultrasound, and/or biopsy as clinically indicated (Ordered for 01/03/2025) 4. A bdominal aortic aneurysm (AAA) without rupture, unspecified part I maging: Ultrasound : Abd/Aorta Comp (Ordered for 01/03/2025) 5. H ypertension Start Metoprolol Succinate ER Tablet Extended Release 24 Hour, 50 MG, 1 tablet, Orally, Once a day, 30 days, 30, Refills 5. 6. O thers Refill Famotidine Tablet, 20 MG, 1 tablet, Orally, Twice a day, 30 days, 60 Tablet, Refills 5. * Procedure Codes: 3 008F BODY MASS INDEX [id number] MEDICAL NUTRITION, INDIV, [id number] BEHAV CHNG SMOKING 3-10 MIN * Preventive Medicine: Counseling: C are goal follow-up plan: BMI management provided Y es Above Normal BMI Follow-up L ifestyle education regarding diet S MOKING: Patient counselled on the dangers of tobacco use and urged to quit. . * Follow Up: 3 Months (Reason: APPT AND ANNUAL LABS) * * Sign off status: Completed true * Provider: Roselia Alvarado Date: 0 01/03/2025 Generated for Luc todd/Gatito/Susan on: 0 01/21/2025 07:28 AM CDT History and Physical Notes * HPI (History of Present Illness) Category Sub-Category Detail Notes Category Not es Interim History Was hospitalized Yes Emergency room visit No Depression Screening PHQ-9 Little inte rest or [...] Total Score: 4 Interpretation: Minimal Depression Screening [place] Suicide Sev erity Rating Scale (LF) Do [...] Category Sub-Category Detail Notes Category Not es General Examination GENERAL APPEARANCE: well dev eloped, well nourished, in no acute distress HEAD: normocephalic, atrau matic EYES: PERRLA, sclera and c onjunctiva clear EARS External ears intact NOSE: nares patent, no les ions, septum intact THROAT: no erythema, no exud ate, pharynx normal NECK/THYROID: no JVD, no goiter HEART: regular rate and rhy thm, no murmurs LUNGS: increased AP diamete r, COARSE BS DIFFUSELY, NO CRACKLES, WHEEZES, OR RHONCHI ABDOMEN: bowel sounds present , soft, nontender, nondistended, no masses palpable, no organomegaly NEUROLOGIC: cranial nerves 2-12 grossly intact SKIN: warm and dry, no bernardo hes EXTREMITIES: no clubbing, cyanosi s, or edema MUSCULOSKELETAL: no joint deformity, swelling, redness, or warmth , LUANNE upper and lower extremities ORAL CAVITY: mucosa moist
--- OUTSIDE RECORDS SUMMARY | 2025-01-21 07:29 | XMS_ITS | Patient Health Record ---
Author Organization [facility] Address [address] [place] [address] Care Team Providers Care Upsetter Name Role Phone Estiven Alvarado Primary Care Provider Sam Hernandez Unavailable [phone] Rosemarie Sanchez Unavailable [phone] Allergies No Known Allergies Reason For Referral Reason cpap mask issues Diagnosis 1 ALVARO (obstructive sle ep apnea) (G47.33) Referral Organization [facility] Referring Provider First Name Estiven Referring Provider Last Name Christiano Referring Provider Speciality Internal M edicine Referred Provider Specialty Sleep Medici ne General Notes Jerrell RN, Sherice Medrano 04/22/2024 09:38:26 AM >Referral to [facility]. Letter to pt. Clinical Notes [facility], [address] [place] [address] [address], [address] [address], , Referral Priority Routine Reason Case management - cl ient is requesting a community case manager (to be put on list if she qualifies). Diagnosis 1 Major depressive dis order, recurrent, moderate (F33.1) Diagnosis 2 PTSD (post-traumatic stress disorder) (F43.10) Referral Organization [facility] Referring Provider First Name Sam Referring Provider Last Name David Referring Provider Speciality Psychiatry Referred Provider Specialty Behavioral [facility] Clinical Notes Rosemarie Sanchez 01:32:51 PM > Call to client re: referral, LVM requesting call back.Daniel Michelle R 12/02/2024 10:53:53 AM >Call to client, client states unable to talk at this moment and to call back another time., Daniel Rosemarie Gale 12/03/2024 10:07:01 AM >Call to client, no answer. Will send letter regarding referral., Rosemarie Sanchez Shahla 12/06/2024 12:01:30 PM > Spoke with client to gather information for referral to case management program. See encounter for more information. Referral Priority Routine Medications Medication SIG (Take, Route, Frequency, Duration) Notes Start Date End Date Status Fluticasone Propionate 50 MCG/ACT 2 sprays in each nostril Nasally Once a day Active Loratadine 10 MG 1 tablet Orally Once a day Active Rollator Ultra-Light - USE AMBULATING EXTERNALLY DAILY 01/30/2023 Active hydrOXYzine Pamoate 25 MG 1 capsule Orally twice a day for 30 days Client would like mailed to her new residence: [address], [address] 10/05/2023 Active Trintellix 10 MG 1 tablet Orally Once a day for 30 days Client would like mailed to her new residence: [address], [address] 09/02/2024 Active Albuterol Sulfate (2.5 MG/3ML) 0.083% 3 mL as needed Inhalation every 6 hrs for 30 days 06/19/2024 Active Symbicort 160-4.5 MCG/ACT 2 puffs Inhalation Twice a day Active Ventolin HFA 108 (90 Base) MCG/ACT 2 puffs as needed Inhalation every 4 hrs Active Spiriva HandiHaler 18 MCG 1 capsule by inhaling the contents of the capsule using the HandiHaler device Inhalation Once a day Active Metoprolol Succinate ER 50 MG 1 tablet Orally Once a day for 30 days 01/03/2025 Active Folic Acid 1 MG 1 tablet Orally Once a day Active Famotidine 20 MG 1 tablet Orally Twice a day for 30 days Active Cyanocobalamin 1000 MCG two tablets Oral ly Once a day 11/04/2022 Active Budesonide-Formoterol Fumarate 160-4.5 MCG/ACT 2 puffs Inhalation every 12 hours for 30 days Active Social History Tobacco Use: Social History [...] receive s SSDI for depression since 1995. GED. Unemployed. She receive s SSDI for depression since 1995. GED. Unemployed. She receive s SSDI for depression since 1995. GED. Unemployed. She receive s SSDI for depression since 1995. GED. Unemployed. She receive s SSDI for depression since 1995. GED. Unemployed. She receive s SSDI for depression since 1995. GED. Unemployed. She receive s SSDI for depression since 1995. GED. Unemployed. She receive s SSDI for depression since 1995. GED. Unemployed. She receive s SSDI for depression since 1995. GED. Unemployed. She receive s SSDI for depression since 1995. GED. Unemployed. She receive s SSDI for depression since 1995. GED. Unemployed. She receive s SSDI for depression since 1995. GED. Unemployed. She receive s SSDI for depression since 1995. GED. Unemployed. She receive s SSDI for depression since 1995. GED. Unemployed. She receive s SSDI for depression since 1995. GED. Unemployed. She receive s SSDI for depression since 1995. GED. Unemployed. She receive s SSDI for depression since 1995. GED. Unemployed. She receive s SSDI for depression since 1995. GED. Unemployed. She receive s SSDI for depression since 1995. GED. Unemployed. She receive s SSDI for depression since 1995. GED. Unemployed. She receive s SSDI for depression since 1995. GED. Unemployed. She receive s SSDI for depression since 1995. GED. Unemployed. She receive s SSDI for depression since 1995. GED. Unemployed. She receive s SSDI for depression since 1995. GED. Unemployed. She receive s SSDI for depression since 1995. GED. Unemployed. She receive s SSDI for depression since 1995. GED. Unemployed. She receive s SSDI for depression since 1995. GED. Unemployed. She receive s SSDI for depression since 1995. GED. Unemployed. She receive s SSDI for depression since 1995. GED. Unemployed. She receive s SSDI for depression since 1995. GED. Unemployed. She receive s SSDI for depression since 1995. GED. Unemployed. She receive s SSDI for depression since 1995. GED. Unemployed. She receive s SSDI for depression since 1995. GED. Unemployed. She receive s SSDI for depression since 1995. GED. Unemployed. She receive s SSDI for depression since 1995. GED. Unemployed. She receive s SSDI for depression since 1995. Problems Problem Type SNOMED Code ICD Code Onset Dates Problem Status W/U Status Risk Notes Problem Tobacco user (934454082) Nicotine dependence, unspecified, uncomplicated (F17.200) Active confirmed Problem 556288739 Major depressive disorder, recurrent, moderate (F33.1) Active confirmed Problem Hypertension (65563423) Hypertension (I10) Active confirmed Problem 49496715 PTSD (post-traumatic stress disorder) (F43.10) Active confirmed Problem COPD - Chronic obstructive pulmonary disease (26324772) COPD (chronic obstructive pulmonary disease) (J44.9) Active confirmed Problem Generalized anxiety disorder (03122146) CHEPE (generalized anxiety disorder) (F41.1) Active confirmed Problem Acute exacerbation of chronic obstructive airways disease (060458986) COPD exacerbation (J44.1) Active confirmed Problem Sciatica (47426830) Sciatica (M54.30) Active confirmed Problem Chronic fatigue syndrome (45288461) Chronic fatigue (R53.82) Active confirmed Problem Severe recurrent major depression without psychotic features (50591932) Major depressive disorder, recurrent episode, severe (F33.2) Active confirmed Problem Obstructive sleep apnea syndrome (64093528) ALVARO (obstructive sleep apnea) (G47.33) Active confirmed Problem Obesity (442447792) Obesity, unspecified classification, unspecified obesity type, unspecified whether serious comorbidity present (E66.9) Active confirmed Problem 25588791 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) Active confirmed Problem 12718178 Cocaine dependence with or without physiological dependence (F14.20) Active confirmed Problem Abdominal aortic aneurysm without rupture (disorder) (21432433) Abdominal aortic aneurysm (AAA) without rupture, unspecified part (I71.40) Active confirmed Vital Signs Heart Rate 124 /min 01/03/2025 Temperature 97.3 degrees Fahrenheit 01/03/2025 Respiratory Rate 16 /min 01/03/2025 Blood pressure diastolic 82 mm Hg 01/03/2025 Oximetry 98 % 01/03/2025 Height 63.5 in 01/03/2025 Blood pressure systolic 146 mm Hg 01/03/2025 Weight 228 lbs 01/03/2025 BMI 39.75 kg/m2 01/03/2025 Encounters Encounter Location Date Provider Diagnosis [address] [address] 01/23/2024 Sam Hernandez Major depressive disorder, recurrent, moderate F33.1 ; Cocaine dependence with or without physiological dependence F14.20 ; HCEPE (generalized anxiety disorder) F41.1 and Nicotine dependence, unspecified, uncomplicated F17.[address] [address] 02/06/2024 Sam Hernandez Major depressive disorder, recurrent, moderate F33.1 ; PTSD (post-traumatic stress disorder) F43.10 and CHEPE (generalized anxiety disorder) F41.[address] [address] 03/20/2024 Sam Hernandez CHEPE (generalized anxiety disorder) F41.1 and Major depressive disorder, recurrent, moderate F33.[address] [address] 04/16/2024 Estiven Alvarado COPD exacerbation J44.[address] [place] [address] 06/14/2024 Estiven Alvarado COPD exacerbation J44.1 and Nicotine dependence, unspecified, uncomplicated F17.[address] [address] 07/01/2024 Sam Hernandez Major depressive disorder, recurrent, moderate F33.1 ; PTSD (post-traumatic stress disorder) F43.10 and CHEPE (generalized anxiety disorder) F41.[address] [address] 09/02/2024 Sam Hernandez Major depressive disorder, recurrent, moderate F33.1 ; PTSD (post-traumatic stress disorder) F43.10 ; Amphetamine addiction F15.20 ; Cocaine dependence with or without physiological dependence F14.20 and CHEPE (generalized anxiety disorder) F41.[address] [address] 11/12/2024 Sam Hernandez Major depressive disorder, recurrent, moderate F33.1 ; PTSD (post-traumatic stress disorder) F43.10 and CHEPE (generalized anxiety disorder) F41.[address] [address] 12/06/2024 Rosemarie Sanchez Major depressive disorder, recurrent, moderate F33.1 [facility] [address] [place] [address] [place] [address] 01/03/2025 Estiven Alvarado Vitamin B12 deficiency E53.8 ; COPD (chronic obstructive pulmonary disease) J44.9 ; Chronic fatigue R53.82 ; Breast cancer screening Z12.39 ; Abdominal aortic aneurysm (AAA) without rupture, unspecified part I71.40 and Hypertension I10 [address] [address] 01/07/2025 Sam Hernandez Major depressive disorder, recurrent, moderate F33.1 ; PTSD (post-traumatic stress disorder) F43.10 and CHEPE (generalized anxiety disorder) F41.[address] [address] 01/23/2024 Estiven Alvarado [address] [address] 01/26/2024 Sam Hernandez [address] [address] 02/05/2024 Sam Hernandez [address] [address] 02/06/2024 Sam Hernandez [address] [address] 02/06/2024 Sam Hernandez [address] [address] 02/07/2024 Sam Hernandez [address] [address] 04/09/2024 Estiven Alvarado [address] [address] 04/15/2024 Estiven Alvarado [address] [address] 04/22/2024 Estiven Alvarado ALVARO (obstructive sleep apnea) G47.[address] [address] 05/09/2024 Sam Hernandez Major depressive disorder, recurrent, moderate F33.[address] [address] 06/12/2024 Estiven Alvarado [address] [address] 06/18/2024 Estiven Alvarado [address] [address] 07/11/2024 Estiven Alvarado [address] [address] 07/25/2024 Estiven Alvarado Pericardial effusion I31.[address] [address] 08/15/2024 Estiven Alvarado [address] [address] 08/27/2024 Sam Hernandez [address] [address] 09/02/2024 Sam Hernandez [address] [address] 09/23/2024 Sam Hernandez [address] [address] 10/24/2024 Estiven Alvarado [address] [address] 11/04/2024 Estiven Alvarado [address] [place] [address] 12/03/2024 Estiven Alvarado [address] [place] [address] 12/30/2024 Sam Hernandez [address] [facility] [place] [address] 12/30/2024 Sam Hernandez Major depressive disorder, recurrent, moderate F33.1 and CHEPE (generalized anxiety disorder) F41.1 [facility] [address] [place] [address] 01/13/2025 Sam Hernandez Assessments Encounter Date Diagnosis (ICD Code) Assessment Notes Treatment Notes Treatment Clinical Notes Section Notes 04/22/2024 ALVARO (obstructive sleep apnea) (ICD-10 - G47.33) 02/06/2024 Major depressive disorder, recurrent, moderate (ICD-10 - F33.1) Client declines crisis team intervention. Client declines most medication suggestions. Then reluctantly agrees to trial of low dose Rexulti for continued c/o mood lability/depres kimberli and high anxiety. Discussed outpatient addiction treatment as client continues to struggle with ongoing chronic crack cocaine relapse. Unknown if current anxiety is extermination supervisor withdrawn symptoms (likely). Client aware she can call [employer] main number to establish and that insurance can provide med [place] assistance. States she will think about this. 01/23/2024 Major depressive disorder, recurrent, moderate (ICD-10 - F33.1) 09/02/2024 Major depressive disorder, recurrent, moderate (ICD-10 - F33.1) Telephone encounter placed with high priority status for nursing to call crisis for client. Client open to discussing her issues with crisis team for further support. She is requesting a change to treatment plan and states she wants to discontinue bupropion and Rexulti today. Did discuss if environmental stressors are driving depression, medication is only one faucet of tx. She is open to trial of Trintellex. Trintellex choosen due to client's hx of weight gain with medications, c/o cognitive issues, and trialing multiple medications with limited success. 07/25/2024 Pericardial effusion (ICD-10 - I31.39) 07/01/2024 Major depressive disorder, recurrent, moderate (ICD-10 - F33.1) Client with increase in depression. Is agreeable to increase in medications to see if helpful as this combination has been the most effective for her symptoms. Has remained sober per her report, longest stretch in quite a while according to her. 03/20/2024 Major depressive disorder, recurrent, moderate (ICD-10 - F33.1) Client reports much improvement in symptoms with transition to Rexulti and bupropion combination. Has been able to slow down from 0.5 -1 PPD to 4 ciggerettes a day as well. States she is no longer taking trazodone. That her only issues are medical now. That she feels good and stable mentally. 03/20/2024 CHEPE (generalized anxiety disorder) (ICD-10 - F41.1) Client reports much improvement in symptoms with transition to Rexulti and bupropion combination. Has been able to slow down from 0.5 -1 PPD to 4 ciggerettes a day as well. States she is no longer taking trazodone. That her only issues are medical now. That she feels good and stable mentally. 04/16/2024 COPD exacerbation (ICD-10 - J44.1) 05/09/2024 Major depressive disorder, recurrent, moderate (ICD-10 - F33.1) 12/06/2024 Major depressive disorder, recurrent, moderate (ICD-10 - F33.1) 01/07/2025 Major depressive disorder, recurrent, moderate (ICD-10 - F33.1) Client states she still feels good on current tx plan and needs no changes. 01/07/2025 PTSD (post-traumatic stress disorder) (ICD-10 - F43.10) Client states she still feels good on current tx plan and needs no changes. 01/03/2025 COPD (chronic obstructive pulmonary disease) (ICD-10 - J44.9) 01/03/2025 Vitamin B12 deficiency (ICD-10 - E53.8) 12/30/2024 Major depressive disorder, recurrent, moderate (ICD-10 - F33.1) 11/12/2024 Major depressive disorder, recurrent, moderate (ICD-10 - F33.1) Client referral for case management services sent per client's request. No changes to treatment plan as client has had positive response to Trintellex. 06/14/2024 COPD exacerbation (ICD-10 - J44.1) 01/23/2024 Cocaine dependence with or without physiological dependence (ICD-10 - F14.20) 11/12/2024 PTSD (post-traumatic stress disorder) (ICD-10 - F43.10) Client referral for case management services sent per client's request. No changes to treatment plan as client has had positive response to Trintellex. 12/30/2024 CHEPE (generalized anxiety disorder) (ICD-10 - F41.1) 01/07/2025 CHEPE (generalized anxiety disorder) (ICD-10 - F41.1) Client states she still feels good on current tx plan and needs no changes. 07/01/2024 PTSD (post-traumatic stress disorder) (ICD-10 - F43.10) Client with increase in depression. Is agreeable to increase in medications to see if helpful as this combination has been the most effective for her symptoms. Has remained sober per her report, longest stretch in quite a while according to her. 09/02/2024 PTSD (post-traumatic stress disorder) (ICD-10 - F43.10) Telephone encounter placed with high priority status for nursing to call crisis for client. Client open to discussing her issues with crisis team for further support. She is requesting a change to treatment plan and states she wants to discontinue bupropion and Rexulti today. Did discuss if environmental stressors are driving depression, medication is only one faucet of tx. She is open to trial of Trintellex. Trintellex choosen due to client's hx of weight gain with medications, c/o cognitive issues, and trialing multiple medications with limited success. 01/03/2025 Chronic fatigue (ICD-10 - R53.82) 06/14/2024 Nicotine dependence, unspecified, uncomplicated (ICD-10 - F17.200) 02/06/2024 PTSD (post-traumatic stress disorder) (ICD-10 - F43.10) Client declines crisis team intervention. Client declines most medication suggestions. Then reluctantly agrees to trial of low dose Rexulti for continued c/o mood lability/depres kimberli and high anxiety. Discussed outpatient addiction treatment as client continues to struggle with ongoing chronic crack cocaine relapse. Unknown if current anxiety is fpc withdrawn symptoms (likely). Client aware she can call [employer] main number to establish and that insurance can provide med cab assistance. States she will think about this. 02/06/2024 CHEPE (generalized anxiety disorder) (ICD-10 - F41.1) Client declines crisis team intervention. Client declines most medication suggestions. Then reluctantly agrees to trial of low dose Rexulti for continued c/o mood lability/depres kimberli and high anxiety. Discussed outpatient addiction treatment as client continues to struggle with ongoing chronic crack cocaine relapse. Unknown if current anxiety is fpc withdrawn symptoms (likely). Client aware she can call [employer] main number to establish and that insurance can provide med cab assistance. States she will think about this. 01/23/2024 CHEPE (generalized anxiety disorder) (ICD-10 - F41.1) 09/02/2024 Amphetamine addiction (ICD-10 - F15.20) Telephone encounter placed with high priority status for nursing to call crisis for client. Client open to discussing her issues with crisis team for further support. She is requesting a change to treatment plan and states she wants to discontinue bupropion and Rexulti today. Did discuss if environmental stressors are driving depression, medication is only one faucet of tx. She is open to trial of Trintellex. Trintellex choosen due to client's hx of weight gain with medications, c/o cognitive issues, and trialing multiple medications with limited success. 07/01/2024 CHEPE (generalized anxiety disorder) (ICD-10 - F41.1) Client with increase in depression. Is agreeable to increase in medications to see if helpful as this combination has been the most effective for her symptoms. Has remained sober per her report, longest stretch in quite a while according to her. 11/12/2024 CHEPE (generalized anxiety disorder) (ICD-10 - F41.1) Client referral for case management services sent per client's request. No changes to treatment plan as client has had positive response to Trintellex. 01/03/2025 Breast cancer screening (ICD-10 - Z12.39) 01/03/2025 Abdominal aortic aneurysm (AAA) without rupture, unspecified part (ICD-10 - I71.40) 09/02/2024 Cocaine dependence with or without physiological dependence (ICD-10 - F14.20) Telephone encounter placed with high priority status for nursing to call crisis for client. Client open to discussing her issues with crisis team for further support. She is requesting a change to treatment plan and states she wants to discontinue bupropion and Rexulti today. Did discuss if environmental stressors are driving depression, medication is only one faucet of tx. She is open to trial of Trintellex. Trintellex choosen due to client's hx of weight gain with medications, c/o cognitive issues, and trialing multiple medications with limited success. 01/23/2024 Nicotine dependence, unspecified, uncomplicated (ICD-10 - F17.200) 09/02/2024 CHEPE (generalized anxiety disorder) (ICD-10 - F41.1) Telephone encounter placed with high priority status for nursing to call crisis for client. Client open to discussing her issues with crisis team for further support. She is requesting a change to treatment plan and states she wants to discontinue bupropion and Rexulti today. Did discuss if environmental stressors are driving depression, medication is only one faucet of tx. She is open to trial of Trintellex. Trintellex choosen due to client's hx of weight gain with medications, c/o cognitive issues, and trialing multiple medications with limited success. 01/03/2025 Hypertension (ICD-10 - I10) 01/23/2024 Other Discussed sleep hygiene and caffeine intake with encouragement to limit electronic devices an hour before bed and to limit caffeine after 3:00pm. Exercise benefits for mood and health discussed. Psychoeducation regarding psychiatric illness provided. Client was educated about risks and benefits of medication, alternatives to medication, off label uses of medication, suicidal ideation with SSRIs, self-administratio n and compliance with medication along with how to safely store medication. Verbal informed consent obtained. Client agrees to return sooner if symptoms worsen or if suicidal or homicidal ideations occur. Client has the phone number to the 24-hour crisis line at [facility]. Questions addressed. Client verbalized understanding of all information and is agreeable to treatment plan. 02/06/2024 Other Discussed sleep hygiene and caffeine intake with encouragement to limit electronic devices an hour before bed and to limit caffeine after 3:00pm. Exercise benefits for mood and health discussed. Psychoeducation regarding psychiatric illness provided. Client was educated about risks and benefits of medication, alternatives to medication, off label uses of medication, suicidal ideation with SSRIs, self-administratio n and compliance with medication along with how to safely store medication. Verbal informed consent obtained. Client agrees to return sooner if symptoms worsen or if suicidal or homicidal ideations occur. Client has the phone number to the 24-hour crisis line at [facility]. Questions addressed. Client verbalized understanding of all information and is agreeable to treatment plan. Client declines crisis team intervention. Client declines most medication suggestions. Then reluctantly agrees to trial of low dose Rexulti for continued c/o mood lability/depres kimberli and high anxiety. Discussed outpatient addiction treatment as client continues to struggle with ongoing chronic crack cocaine relapse. Unknown if current anxiety is fpc withdrawn symptoms (likely). Client aware she can call [employer] main number to establish and that insurance can provide med cab assistance. States she will think about this. 03/20/2024 Other Discussed sleep hygiene and caffeine intake with encouragement to limit electronic devices an hour before bed and to limit caffeine after 3:00pm. Exercise benefits for mood and health discussed. Psychoeducation regarding psychiatric illness provided. Client was educated about risks and benefits of medication, alternatives to medication, off label uses of medication, suicidal ideation with SSRIs, self-administratio n and compliance with medication along with how to safely store medication. Verbal informed consent obtained. Client agrees to return sooner if symptoms worsen or if suicidal or homicidal ideations occur. Client has the phone number to the 24-hour crisis line at [facility]. Questions addressed. Client verbalized understanding of all information and is agreeable to treatment plan. Client reports much improvement in symptoms with transition to Rexulti and bupropion combination. Has been able to slow down from 0.5 -1 PPD to 4 ciggerettes a day as well. States she is no longer taking trazodone. That her only issues are medical now. That she feels good and stable mentally. 07/01/2024 Other Discussed sleep hygiene and caffeine intake with encouragement to limit electronic devices an hour before bed and to limit caffeine after 3:00pm. Exercise benefits for mood and health discussed. Psychoeducation regarding psychiatric illness provided. Client was educated about risks and benefits of medication, alternatives to medication, off label uses of medication, suicidal ideation with SSRIs, self-administratio n and compliance with medication along with how to safely store medication. Verbal informed consent obtained. Client agrees to return sooner if symptoms worsen or if suicidal or homicidal ideations occur. Client has the phone number to the 24-hour crisis line at [facility]. Questions addressed. Client verbalized understanding of all information and is agreeable to treatment plan. Client with increase in depression. Is agreeable to increase in medications to see if helpful as this combination has been the most effective for her symptoms. Has remained sober per her report, longest stretch in quite a while according to her. 09/02/2024 Other Discussed sleep hygiene and caffeine intake with encouragement to limit electronic devices an hour before bed and to limit caffeine after 3:00pm. Exercise benefits for mood and health discussed. Psychoeducation regarding psychiatric illness provided. Client was educated about risks and benefits of medication, alternatives to medication, off label uses of medication, suicidal ideation with SSRIs, self-administratio n and compliance with medication along with how to safely store medication. Verbal informed consent obtained. Client agrees to return sooner if symptoms worsen or if suicidal or homicidal ideations occur. Client has the phone number to the 24-hour crisis line at [facility]. Questions addressed. Client verbalized understanding of all information and is agreeable to treatment plan. Telephone encounter placed with high priority status for nursing to call crisis for client. Client open to discussing her issues with crisis team for further support. She is requesting a change to treatment plan and states she wants to discontinue bupropion and Rexulti today. Did discuss if environmental stressors are driving depression, medication is only one faucet of tx. She is open to trial of Trintellex. Trintellex choosen due to client's hx of weight gain with medications, c/o cognitive issues, and trialing multiple medications with limited success. 11/12/2024 Other Discussed sleep hygiene and caffeine intake with encouragement to limit electronic devices an hour before bed and to limit caffeine after 3:00pm. Exercise benefits for mood and health discussed. Psychoeducation regarding psychiatric illness provided. Client was educated about risks and benefits of medication, alternatives to medication, off label uses of medication, suicidal ideation with SSRIs, self-administratio n and compliance with medication along with how to safely store medication. Verbal informed consent obtained. Client agrees to return sooner if symptoms worsen or if suicidal or homicidal ideations occur. Client has the phone number to the 24-hour crisis line at [facility]. Questions addressed. Client verbalized understanding of all information and is agreeable to treatment plan. Client referral for case management services sent per client's request. No changes to treatment plan as client has had positive response to Trintellex. 12/06/2024 Other Clinician spoke with client via [...] and completed referral process on client's behalf. 01/07/2025 Other Discussed sleep hygiene and caffeine intake with encouragement to limit electronic devices an hour before bed and to limit caffeine after 3:00pm. Exercise benefits for mood and health discussed. Psychoeducation regarding psychiatric illness provided. Client was educated about risks and benefits of medication, alternatives to medication, off label uses of medication, suicidal ideation with SSRIs, self-administratio n and compliance with medication along with how to safely store medication. Verbal informed consent obtained. Client agrees to return sooner if symptoms worsen or if suicidal or homicidal ideations occur. Client has the phone number to the 24-hour crisis line at [facility]. Questions addressed. Client verbalized understanding of all information and is agreeable to treatment plan. Client states she still feels good on current tx plan and needs no changes. Plan Of Treatment Future Test Test Name Order Date Ultrasound : Abd/Aorta Comp 01/03/2025 Mammogram Breast - Bilateral Screening with ABUS, diagnostic mammogram/ultrasound, and/or biopsy as clinically indicated 01/03/2025 Insurance Providers Payer Name Payer Address Payer Phone Subscriber Number Group Number Insured Name Patient Relationship to Insured Coverage Start Date Coverage End Date [facility] Att Claims Department [address] [place] [address] [phone] [id number] Nohelia Cyr Self - patient is the insured 12/01/202 3 [employer] [address] [place] [phone] [id number] Nohelia Cyr Self - patient is the insured 1 3 [employer] Telehealth [address] [place] [phone] [id number] Nohelia Cyr Self - patient is the insured 1 3 [employer] [facility] Att[facility] Claims Department [address] [place] [address] [id number] Nohelia Cyr Self - patient is the insured 3 [place] [facility] Telehealth Attn Claims Department [address] [place] [address] [id number] Nohelia Cyr Self - patient is the insured 5 Medical (General) History Medical History History ICD Code Broken collar bone 01/2021 Pneumonia 11/07/2019 COPD GERD HTN Stomach ulcers neuropathy sciatica Sleep apnea recent () PNA Stomach aneurysm Surgical History Surgery Date(Month/Year) right ankle surgery partial hysterectomy Hospitalization History Reason Date(Month/Year) COPD flare up 12/2022 Hospitalization r/t [facility] 12/2021 Recent hospitalization 9 day stay [place] [place]
--- OUTSIDE RECORDS SUMMARY | 2025-01-21 07:30 | XMS_ITS | Encounter Summary ---
Author Organization [facility] Healthcare Address [address] [place] [address] Care Team Providers Care Development Coach Name Role Phone Sean Lee MD Unavailable [phone] Myron Ruelas MD Unavailable [phone] Estiven Alvarado MD Primary Care Provider [phone] Encounter Details Date Type Department Care Team (Late st Contact Info) Description 07/11/2024 Telephone [facility] Medical Group Orthopedics and Sports Medicine 4 [facility] [address] [place] [address] Ozzy Waller MD [address] [place] [address] [address] [place] [address] Social History Tobacco Use Types Packs/Day Years [...] on file 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 Surgery date has been moved to April 03. Clinicals sent in to insurance for CT auth. Waiting on determination. * Telephone Encounter - Dariana Odonnell MA - 01/20/2025 8:50 AM CDT Called and left LM. A date of 03/06/2025 has been saved for an overnight right reverse total shoulder arthroplasty. Will be working on an auth for CT. * Telephone Encounter - Dariana Odonnell MA - 01/17/2025 2:49 PM CDT Patient called and wanted to let us know she has cut down tremendously on smoking cigarettes. She states that her doctor Estiven Alvarado has commented on how much better her lungs sound. She's not sure if she can completely quit smoking. I did advise her that Dr. Waller wants her to completely quit smoking before surgery. Patient understands but says she has tried everything from gum, to patches tohome remedies without avail. Patient also stated she has not went to PT. She has recently moved to [place], [place] and would like a new referral sent to [facility] but does not want to start PT until she can get a surgery date. * Telephone Encounter - Shama Eason - 01/17/2025 11:14 AM CDT Patient called and left a voicemail stating she would like to speak to someone regarding this. She states she has not completely stopped smoking but is down to only a few a day. Please reach out to patient to discuss. * Telephone Encounter - Radha Pathak MA - 07/11/2024 10:22 AM CDT I have called patient, her surgery is TBD, as she was told by Dr Waller that she needed to stop smoking. She said that she felt rushed in having to do this. I explained to her that Dr. Waller and the staff truly care about her and the fact she is in pain.I told her that she can call back that all the orders are good from one year of being seen. She will call when she is ready and the Precert for her CT scan will need to be done when she schedules her surgery. documented in this encounter Plan of Treatment Not on file documented as of this encounter Visit Diagnoses Not on filedocumented in this encounter Care Teams Development Coach Relationship Specialty Start Date End Date Estiven Alvarado MD [address] [place] [address] PCP - General Internal Medicine 02/22/24 Sean Lee MD 6 [facility] [address] [place] [address] Consulting Physician Pulmonary Disease 08/18/21 Myron Ruelas MD [address] [place] [address] Consulting Physician Pulmonary Disease 12/13/21 documented as of this encounter
--- OUTSIDE RECORDS SUMMARY | 2025-01-21 07:30 | XMS_ITS | Encounter Summary ---
Author Organization [facility] Healthcare Address [address] [place] [address] Care Team Providers Care Vegetable Ii Farmworker Name Role Phone Sean Lee MD Unavailable [phone] Myron Ruelas MD Unavailable [phone] Estiven Alvarado MD Primary Care Provider [phone] Encounter Details Date Type Department Care Team (Late st Contact Info) Description 01/20/[address] 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 Approved. Scanned into media. Called and left VM for patient to schedule CT closer to surgery date. She can also get her pre op labs done on the same day. documented in this encounter Plan of Treatment Not on file documented as of this encounter Visit Diagnoses Not on filedocumented in this encounter Care Teams Vegetable Ii Farmworker Relationship Specialty Start Date End Date Estiven Alvarado MD [address] [place] [id number] PCP - General Internal Medicine 02/22/24 Sean Lee MD [address] [place] [address] Consulting Physician Pulmonary Disease 08/18/21 Myron Ruelas MD [address] [place] [address] Consulting Physician Pulmonary Disease 12/13/21 documented as of this encounter
== END 2025-01-21 07:26 | disposition home or self-care (01) ==
PROVIDERS: PCP Internal Medicine; Visit Provider Internal Medicine
DX: I71.40 Abdominal aortic aneurysm, without rupture, unspecified (principal)
CPT/HCPCS: 76775

== ENCOUNTER 2025-04-08 14:33 | Emergency (ER) | payer OTHER, SELFPAY ==
[2025-04-08] VITALS (14 sets, daily range): BP systolic 114–148; BP diastolic 80–101; PULSE 86–120; RESP 14–20; TEMP 36.3–36.4; O2SAT 95–100
--- NOTE | ~2025-04-08 | XR_ITS ---
Clinical Indication: Chest pain PA and lateral views of the chest: Comparison: 07/20/2024 Findings: The lungs are clear, without evidence of focal consolidation or pleural effusion. Cardiome diastinal silhouette is within normal limits. Bones and soft tissues are unremarkable. Impression: Normal chest. Reviewed, dictated and finalized at location . Impression: Normal chest.
--- NOTE | ~2025-04-08 | CT_ITS ---
CT diagnostic chest w con Ordering provider: Samy Silva MD History: 60 years Female with . ZACHARY, persistent . Comparison: July 24, 2024 Technique: CT chest with IV contrast. Radiation reduction technique utilized. The dose-length product was 758.26 mGy-cm. 100 mL Omnipaque 3 50 was given IV. Findings: VISUALIZED THORACIC INLET: Normal. MEDIASTINUM: Aorta/coronary arteries: Mild atheromatous disease. Ascending aorta measures 4.7 cm. Heart/other: The heart is not enlarged. Trace of pericardial effusion is noted. Thickened interventr icular septum is noted. Lymph nodes: No mediastinal or hilar adenopathy. LUNGS: Atelectatic changes in the middle lobe are noted unchanged. No pulmonary nodules or masses. No infiltrates or effusions. No pneumothorax. Dependent atelectatic changes in the right lung base. VISUALIZED UPPER ABDOMEN: Hypodensity in the left lobe of the liver measuring 1.2 cm. Follow-up advis ed. Distended gallbladder with no stones. Otherwise, the visualized upper abdomen is normal. MUSCULOSKELETAL: Soft tissues: The superficial soft tissues are normal. Bones: Age appropriate degenerative changes of the spine. IMPRESSION: Ascending aorta is slightly larger than the previous study measuring 4.7 cm. Trace of pericardial effusion with thickened interventricular septum. Echocardiography advised. Atelectatic changes in the middle lobe unchanged. Distended gallbladder with no stones. Hypodensity in the liver. Follow-up advised. Reviewed, dictated and finalized at location A. IMPRESSION: Ascending aorta is slightly larger than the previous study measuring 4.7 cm. Trace of pericardial effusion with thickened interventricular septum. Echocardi ography advised. Atelectatic changes in the middle lobe unchanged. Distended gallbladder with no stones. Hypodensity in the liver. Follow-up advised.
--- NOTE | 2025-04-08 14:34 | ECG_ITS ---
Test Date: 2025-04-08 14:51:26 Measurements Intervals Karval Rate: 106 P: 49 NH: 173 QRS: 11 QRSD: 81 T: 53 QT: 307 QTc: 409 Interpretive Statements SINUS TACHYCARDIA ABNORMAL RHYTHM ECG Compared to ECG 07/20/2024 13:46:31 No significant changes Electronically Signed On 04-08-2025 18:12:55 CDT by Malka Figueredo
--- OUTSIDE RECORDS SUMMARY | 2025-04-08 14:36 | XMS_ITS | Clinical Summary ---
Author Organization [facility] Address [address] [place] [address] Care Team Providers Care Topper Press Operator Automatic Name Role Phone Sean Lee MD Unavailable [phone] Myron Ruelas MD Unavailable [phone] Estiven Alvarado MD Primary Care Provider [phone] Allergies No known active allergies Medications Symbicort [...] (04/03/2024): Added automatically from request for surgery [id number] Added automatically from request for surgery [id number] Gastroesophageal reflux disease without esophagi tis 11/28/2017 Irritable bowel syndrome with diarrhea 8 Back pain 11/27/2017 Cannabis abuse 11/27/2017 Cocaine abuse 11/27/2017 Major depressive disorder 11/27/2017 Encounters Date Type Department Care Team Description 03/14/2025 Telephone [facility] [address] [place] [address] Rolo Sifuentes 01/20/2025 Telephone [facility] Medical Group Orthopedics and Sports Medicine 4 [facility] [address] [place] [address] Ozzy Waller MD from Last 3 Months Immunizations Immunization Administration Dates Next Due Influenza, Quadrivalent, Spl it, Preservative Free, Intramuscular 08/16/2021 Tdap 05/08/2021 Surgical History Surgery Date Site/Laterality Comments MA REPAIR FIRST ABDOMINAL WA LL HERNIA Ventral Hernia Repair - (Added by TW Conv) MA LIG/TRNSXJ FLP TUBE ABDL/ VAG APPR UNI/BI Tubal Ligation - (Added by Conv) MA TOTAL ABDOMINAL HYSTERECT W/WO RMVL TUBE OVARY Total Abdominal Hysterectomy - (Added by Conv) Medical History Medical History Date Comments [...] on file Legal Sex Female 12:22 AM 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 MD: 02:34 PM 02:34 PM [facility] [EOD] Narrative 02/20/2014 2:38 PM CDT [...] mailed to the patient with the results andresandra. The patient will be entered into a reminder system for an annual screening mammogram in 1 year. THIS IS AN ELECTRONICALLY VERIFIED REPORT 02/20/2014 2:34 PM: Mhoamud Xavier M.D. Mohamud Xavier M.D. MD: 02:34 PM 02:34 PM [facility] [EOD] Rosemarie Matt Robbin DO IMG MAMMO PROCEDURES F inal Result from Last 3 Months or Most Recently Relevant to Health Maintenance Insurance [facility] [employer] [address] [place] [address] Advance Directives For more information, please contact: [phone] * Full Code (Latest Code Status on File) Date Activated Date Inactivated Comments 12/13/2021 9:52 AM 12/13/2021 6:25 PM * Full Code Date Activated Date Inactivated Comments 08/11/2021 6:32 PM 08/19/2021 1:49 AM Care Teams Topper Press Operator Automatic Relationship Specialty Start Date End Date Estiven Alvarado MD [address] [place] [address] [place] [address] PCP - General Internal Medicine 02/22/24 Sean Lee MD 6 [facility] [address] [place] [address] Consulting Physician Pulmonary Disease 08/18/21 Myron Ruelas MD 6 [facility] [address] [place] [address] Consulting Physician Pulmonary Disease 12/13/21
--- OUTSIDE RECORDS SUMMARY | 2025-04-08 14:36 | XMS_ITS | Referral Summary ---
Author Organization [facility] Address [address] [place] [address] Care Team Providers Care A Class Lineman Name Role Phone Sean Lee MD Unavailable [phone] Myron Ruelas MD Unavailable [phone] Estiven Alvarado MD Primary Care Provider [phone] Encounters Date Type Department Care Team Description 03/14/2025 Telephone [facility] [address] [place] [address] Rolo Sifuentes 01/20/2025 Telephone [facility] Medical Group Orthopedics and Sports Medicine 4 [facility] [address] [place] [address] Ozzy Waller MD from Last [...] (04/03/2024): Added automatically from request for surgery [id number] Added automatically from request for surgery [id number] Gastroesophageal reflux disease without esophagi tis 11/28/2017 [...] on file Legal Sex 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 MD: 02:34 PM 02:34 PM [facility] [EOD] Narrative 02/20/2014 2:38 PM [...] Xavier M.D. MD: 02:34 PM 02:34 PM [facility] [EOD] Rosemarie Siegel DO IMG MAMMO PROCEDURES F inal Result from Last 3 Months or Most Recently Relevant to Health Maintenance Insurance [facility] Advance Directives For more information, please contact: [phone] * Full Code (Latest Code Status on File) Date Activated Date Inactivated Comments 12/13/2021 9:52 AM 12/13/2021 6:25 PM * Full Code Date Activated Date Inactivated Comments 08/11/2021 6:32 PM 08/19/2021 1:49 AM Care Teams A Class Lineman Relationship Specialty Start Date End Date Estiven Alvarado MD [address] [place] [address] PCP - General Internal Medicine 02/22/24 Sean Lee MD 6 [facility] [address] [place], [place] [id number] Consulting Physician Pulmonary Disease 08/18/21 Myron Ruelas MD 6 [facility] [address] [place] [address] Consulting Physician Pulmonary Disease 12/13/21
--- OUTSIDE RECORDS SUMMARY | 2025-04-08 14:36 | XMS_ITS | Clinical Summary ---
Author Organization [facility] Address [address] [place] [address] Care Team Providers Care Pickle Pumper Name Role Phone ArtemioLeela barton KAT Primary Care Provider [phone] Allergies No known active allergies Active Problems Problem Noted Date Diagnosed Date Lumbar radiculopathy 09/11/2018 Overview (09/11/2018): Added automatically from request for surgery [id number] Family History Medical History Relation Comments Lung [...] Comments Blood Pressure 114/83 09/28/2023 5:00 AM PLASTICATOR Pulse 111 09/28/2023 5:00 AM PLASTICATOR Temperature 36.9 C (98.5 F) 09/28/2023 2:21 AM PLASTICATOR Respiratory Rate 20 09/28/2023 2:21 AM PLASTICATOR Oxygen Saturation 93% 09/28/2023 5:00 AM PLASTICATOR Inhaled Oxygen Concentration - - Weight 90.7 kg (200 lb) 09/28/2023 2:32 AM PLASTICATOR Height 162.6 cm (5' 4) 09/28/2023 2:32 AM PLASTICATOR Body Mass Index 34.33 09/28/2023 2:32 AM PLASTICATOR Plan of Treatment Health Maintenance Due Date [...] 2003 Zoster Vaccines (1 of 2) 2013 Pneumococcal Vaccine: 50+ Ye ars (2 of 2 - PCV) 08/05/2016 08/05/2015 COVID-19 Vaccine (2 - 2023-2 5 season) 2024 04/23/2021 DTaP, Tdap and Td Vaccines ( 2 - Td or Tdap) 05/08/2031 05/08/2021 RSV Immunization or 60+ Years (1 - 1-dose 75+ series) 2038 Meningococcal B Vaccine Aged Out No l onger eligible based on patient's age to complete this topic Meningococcal Vaccine Aged Out No carlos jordan eligible based on patient's age to complete this topic RSV Immunizations Under 20 Months Aged Out No longer eligible based on patient's age to complete this topic Insurance Care Teams Pickle Pumper Relationship Specialty Start Date End Date Leeal Sewell NP PCP - General 09/30/15
--- OUTSIDE RECORDS SUMMARY | 2025-04-08 14:37 | XMS_ITS | Continuity of Care Document ---
Author Organization [facility] Address [address] [address] [place] [address] Phone Care Team Providers Care Access Nurse Name Role Phone Cameron Houser MD, FACS Unavailable Unavailab le Advance Directives Directive Yes / No Effective Date File Name No Information Encounters Encounter Description Practice Location Reason(s) For Visit Diagnoses Date Provider Providers Copied on Encounter [facility], [address] [place], [place], [id number], [place] tel:[phone] Analilia Harrington No Information 0 Corrina Barnes. [address], [address], [place], [place], [id number], [place]. tel:[phone] Family History Family Member Type Diagnosis Age At Onset No Information Payers Payer name Insurance type Covered constitution party ID Authoriza tion(s) Medicaid [facility] [id number] Social History Type Description Quantity Date Captured [...]
--- OUTSIDE RECORDS SUMMARY | 2025-04-08 14:37 | XMS_ITS | Patient Health Record ---
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 Planter Name Role Phone Estiven Alvarado Primary Care Provider Sam Hernandez Unavailable [phone] Rosemarie Sanchez Unavailable [phone] Allergies No Known Allergies Reason For Referral Reason cpap mask issues Diagnosis 1 ALVARO (obstructive sle ep apnea) (G47.33) Referral Organization [facility] Referring Provider First Name Estiven Referring Provider Last Name Christiano Referring Provider Speciality Internal M edicine Referred Provider Specialty Sleep Medici ne General Notes Jerrell RN, Sherice Medrano 04/22/2024 09:38:26 AM >Referral to [facility]. Letter to pt. 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 Diagnosis 1 Major depressive dis order, recurrent, moderate (F33.1) Diagnosis 2 PTSD (post-traumatic stress disorder) (F43.10) Referral Organization [facility] Referring Provider First Name Sam Referring Provider Last Name David Referring Provider Speciality Psychiatry Referred Provider Specialty Behavioral [facility] Clinical Notes Rosemarie Sanchez 01:32:51 PM > Call to client re: referral, LVM requesting call back.Daniel Michelle R 12/02/2024 10:53:53 AM >Call to client, client states unable to talk at this moment and to call back another time., Rosemarie Sanchez 12/03/2024 10:07:01 AM >Call to client, no answer. Will send letter regarding referral., Rosemarie Sanchez 12/06/2024 12:01:30 PM > Spoke with client to gather information for referral to case management program. See encounter for more information. Referral Priority Routine Reason PT FOR GAIT, OT FOR ADL'S, RN FOR LABILE BP Diagnosis 1 Osteoarthritis (M19. 90) Referral Organization [facility] Referring Provider First Name Estiven Referring Provider Last Name Christiano Referring Provider Speciality Internal M edicine Referred Provider Specialty Home Health Care General Notes Corie Reaves 10:37:38 AM > Referral sent with attachments. Letter mailed., Loree Del Toro 03/14/2025 11:36:12 AM > Attempted to contact patient in regards to referral. No answer, left message, Tati Dodge 03/24/2025 01:23:57 PM > See TE., Tati Dodge 03/24/2025 01:28:36 PM > Successfully resent referral order and information to below provider. Clinical Notes Hemal Mon Kit [facility] , [address], [place], [place], [address], , Referral Priority Routine Medications Medication SIG (Take, Route, Frequency, Duration) Notes Start Date End Date Status Metoprolol Succinate ER 50 MG 1 tablet Orally Once a day; Duration: 30 days 01/03/2025 Active Budesonide-Formoterol Fumarate 160-4.5 MCG/ACT 2 puffs Inhalation every 12 hours; Duration: 30 days Active Albuterol Sulfate (2.5 MG/3ML) 0.083% 3 mL as needed Inhalation every 6 hrs; Duration: 30 days 06/19/2024 Active Symbicort 160-4.5 MCG/ACT 2 puffs Inhalation Twice a day Active Rollator Ultra-Light - USE AMBULATING EXTERNALLY DAILY 01/30/2023 Active Ventolin HFA 108 (90 Base) MCG/ACT 2 puffs as needed Inhalation every 4 hrs Active Spiriva HandiHaler 18 MCG 1 capsule by inhaling the contents of the capsule using the HandiHaler device Inhalation Once a day Active Folic Acid 1 MG 1 tablet Orally Once a day Active Pantoprazole Sodium 40 MG 1 tablet 1/2 to 1 hour before morning meal Orally Once a day; Duration: 30 day(s) 02/19/2025 Active Cetirizine HCl 10 MG 1 tablet Orally Once a day; Duration: 30 day(s) 02/19/2025 Active hydrOXYzine Pamoate 25 MG 1 capsule Orally twice a day; Duration: 30 days Client would like mailed to her new residence: [facility] [address] [place], [place], [address] 10/05/2023 Active Cyanocobalamin 1000 MCG two tablets Orally Once a day 11/04/2022 Active Montelukast Sodium 10 MG 1 tablet Orally Once a day; Duration: 30 day(s) 02/19/2025 Active Fluticasone Propionate 50 MCG/ACT 2 sprays in each nostril Nasally Once a day Not-Taking Trintellix 20 MG 1 tablet Orally Once a day; Duration: 30 days Client would like mailed to her new residence: [facility] [address] [place], [place], [address] 09/02/2024 Active tiZANidine HCl 4 MG 1 tablet as needed Orally Three times a day; Duration: 30 days As needed muscle pain Active Social History Tobacco Use: Social History Observation Description Date Details (start date - stop date) Current Smoker NA - NA Sex Assigned At : Social History Observation Description Sex Assigned At Female PRAPARE Question Answer Notes Date Completed/Updated: 02/19/2025 What is your current housing situation? I have h ousing Are you worried about losing your housing? No What is the highest level of school that you have finished? High school diploma or GED What is your current work situation? Oth erwise unemployed but not seeking work (ex. 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 Check all that apply I do not have problems meeting my needs Has lack of transportation k ept you from medical appointments, meetings, work or from getting things needed for daily living? No How often do you see or talk to people that you care about and feel close to? (For example: talking to friends on the phone, visiting friends or family, going to tenriism or club meetings) More than 5 times a week How stressed are you? Stress is when someone feels tense, nervous, anxious, or can\t sleep at night because their mind is troubled Somewhat In the past year have you sp ent more than 2 nights in a row in a senior living, fpc, senior living center, or juvenile correctional facility? No Do you feel physically and e motionally safe where you currently live? Yes In the past year, have you b een afraid of your partner or ex-partner? No PRAPARE Score: 5 Enabling Services Provided? Yes Please specify Case Management Home Visit Tobacco Control (Standard) Question Answer Notes Tobacco use: Current smoker Additional Findings: Tobacco user Light cigarett [...] W/U Status Risk Notes Problem Tobacco user (401674109) Nicotine dependence, unspecified, uncomplicated (F17.200) Active confirmed Problem Moderate recurrent major depression (36878648) Major depressive disorder, recurrent, moderate (F33.1) Active confirmed Problem Hypertension (39850460) Hypertension (I10) Active confirmed Problem Osteoarthritis (970668871) Osteoarthritis (M19.90) Active confirmed Problem Posttraumatic stress disorder (67210922) PTSD (post-traumatic stress disorder) (F43.10) Active confirmed Problem COPD - Chronic obstructive pulmonary disease (20224157) COPD (chronic obstructive pulmonary disease) (J44.9) Active confirmed Problem Generalized anxiety disorder (48922991) CHEPE (generalized anxiety disorder) (F41.1) Active confirmed Problem Acute exacerbation of chronic obstructive airways disease (969846045) COPD exacerbation (J44.1) Active confirmed Problem Sciatica (18639288) Sciatica (M54.30) Active co nfirmed Problem Chronic fatigue syndrome (81725500) Chronic fatigue (R53.82) Active confirmed Problem Severe recurrent major depression without psychotic features (23680786) Major depressive disorder, recurrent episode, severe (F33.2) Active confirmed Problem Obstructive sleep apnea syndrome (82887426) ALVARO (obstructive sleep apnea) (G47.33) Active confirmed Problem Gastroesophageal reflux disease (185569267) GERD without esophagitis (K21.9) Active confirmed Problem Chronic rhinitis (79564358) Chronic rhinitis, unspecified type (J31.0) Active confirmed Problem Obesity (822500359) Obesity, unspecified classification, unspecified obesity type, unspecified whether serious comorbidity present (E66.9) Active confirmed Problem Stimulant dependence (045808657) 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) Active confirmed Problem Cocaine dependence (53710852) Cocaine dependence with or without physiological dependence (F14.20) Active confirmed Problem Abdominal aortic aneurysm without rupture (disorder) (39922038) Abdominal aortic aneurysm (AAA) without rupture, unspecified part (I71.40) Active confirmed Vital Signs Heart Rate 108 /min 02/19/2025 Temperature 97.3 degrees Fahrenheit 01/03/2025 Respiratory Rate 16 /min 02/19/2025 Oximetry 96 % 02/19/2025 Blood pressure diastolic 60 mm Hg 02/19/2025 Height 63.5 in 02/19/2025 Blood pressure systolic 138 mm Hg 02/19/2025 Weight 234.6 lbs 02/19/2025 BMI 40.9 kg/m2 02/19/2025 Encounters Encounter Location Date Provider Diagnosis [address] [place] [address] 04/16/2024 Estiven Alvarado COPD exacerbation J44.1 [facility] [address] [address] 06/14/2024 Estiven Alvarado COPD exacerbation J44.1 and Nicotine dependence, unspecified, uncomplicated F17.[address] [place] [address] 07/01/2024 Sam Hernandez Major depressive disorder, recurrent, moderate F33.1 ; PTSD (post-traumatic stress disorder) F43.10 and CHEPE (generalized anxiety disorder) F41.[address] [address] 09/02/2024 Sam Hernandez Major depressive disorder, recurrent, moderate F33.1 ; PTSD (post-traumatic stress disorder) F43.10 ; Amphetamine addiction F15.20 ; Cocaine dependence with or without physiological dependence F14.20 and CHEPE (generalized anxiety disorder) F41.[address] [address] 11/12/2024 Sam Hernandez Major depressive disorder, recurrent, moderate F33.1 ; PTSD (post-traumatic stress disorder) F43.10 and CHEPE (generalized anxiety disorder) F41.[address] [address] 12/06/2024 Rosemarie Sanchez Major depressive disorder, recurrent, moderate F33.1 [facility] [address] [place] [address] [place] [address] 01/03/2025 Estiven Alvarado Vitamin B12 deficien cy E53.8 ; COPD (chronic obstructive pulmonary disease) J44.9 ; Chronic fatigue R53.82 ; Breast cancer screening Z12.39 ; Abdominal aortic aneurysm (AAA) without rupture, unspecified part I71.40 and Hypertension I10 [address] [address] 01/07/2025 Sam Hernandez Major depressive disorder, recurrent, moderate F33.1 ; PTSD (post-traumatic stress disorder) F43.10 and CHEPE (generalized anxiety disorder) F41.[address] [address] 02/19/2025 Estiven Alvarado Chronic rhinitis, unspecified type J31.0 ; GERD without esophagitis K21.9 and Osteoarthritis M19.[address] [address] 03/18/2025 Sam Hernandez Major depressive disorder, recurrent, moderate F33.1 and CHEPE (generalized anxiety disorder) F41.[address] [address] 04/09/2024 Estiven Alvarado [address] [address] 04/15/2024 Etsiven Alvarado [address] [address] 04/22/2024 Estiven Alvarado ALVARO (obstructive sle ep apnea) G47.[address] [address] 05/09/2024 Sam Hernandez Major depressive disorder, recurrent, moderate F33.[address] [address] 06/12/2024 Estiven Alvarado [address] [address] 06/18/2024 Estiven Alvarado [address] [address] 07/11/2024 Estiven Alvarado [address] [address] 07/25/2024 Estiven Alvarado Pericardial effusion I31.[address] [address] 08/15/2024 Estiven Alvarado [address] [address] 08/27/2024 Sam Hernandez [address] [address] 09/02/2024 Sam Hernandez [address] [address] 09/23/2024 Sam Hernandez [address] [address] 10/24/2024 Estiven Alvarado [address] [address] 11/04/2024 Estiven Alvarado [address] [address] 12/03/2024 Estiven Alvarado [address] [address] 12/30/2024 Sam Hernandez [address] [address] 12/30/2024 Sam Hernandez Major depressive disorder, recurrent, moderate F33.1 and CHEPE (generalized anxiety disorder) F41.1 [facility] [address], [place] [address] 01/13/2025 Sam Hernandez [address] [address] 01/30/2025 Estiven Alvarado [address] [address] 02/05/2025 Estiven Alvarado [address] [address] 02/21/2025 Estiven Alvarado [address] [address] 03/07/2025 Estiven Alvarado [address] [address] 03/10/2025 Sam Hernandez Major depressive disorder, recurrent, moderate F33.1 and CHEPE (generalized anxiety disorder) F41.[address] [address] 03/17/2025 Estiven Alvarado Chronic rhinitis, unspecified type J31.0 and GERD without esophagitis K21.[address] [place] [address] 03/24/2025 Estiven Alvarado Assessments Encounter Date Diagnosis (ICD Code) Assessment Notes Treatment Notes Treatment Clinical Notes Section Notes 04/22/2024 ALVARO (obstructive sleep apnea) (ICD-10 - G47.33) 02/19/2025 Chronic rhinitis, unspecified type (ICD-10 - J31.0) 03/10/2025 Major depressive disorder, recurrent, moderate (ICD-10 - F33.1) 01/03/2025 Vitamin B12 deficiency (ICD-10 - E53.8) 02/19/2025 GERD without esophagitis (ICD-10 - K21.9) 03/17/2025 Chronic rhinitis, unspecified type (ICD-10 - J31.0) 03/18/2025 Major depressive disorder, recurrent, moderate (ICD-10 - F33.1) Client states she has been more depressed lately, isolating and doing less things. She is interested in a trial of dose increase in Trintellex as she has not had side effects but has had good response. Will increase to 20 mg after discussing risk versus benefit. 05/09/2024 Major depressive disorder, recurrent, moderate (ICD-10 - F33.1) 12/06/2024 Major depressive disorder, recurrent, moderate (ICD-10 - F33.1) 12/30/2024 Major depressive disorder, recurrent, moderate (ICD-10 - F33.1) 11/12/2024 Major depressive disorder, recurrent, moderate (ICD-10 - F33.1) Client referral for case management services sent per client's request. No changes to treatment plan as client has had positive response to Trintellex. 01/03/2025 COPD (chronic obstructive pulmonary disease) (ICD-10 - J44.9) 01/07/2025 Major depressive disorder, recurrent, moderate (ICD-10 - F33.1) Client states she still feels good on current tx plan and needs no changes. 01/07/2025 PTSD (post-traumatic stress disorder) (ICD-10 - F43.10) Client states she still feels good on current tx plan and needs no changes. 04/16/2024 COPD exacerbation (ICD-10 - J44.1) 06/14/2024 COPD exacerbation (ICD-10 - J44.1) 07/01/2024 Major depressive disorder, recurrent, moderate (ICD-10 - F33.1) Client with increase in depression. Is agreeable to increase in medications to see if helpful as this combination has been the most effective for her symptoms. Has remained sober per her report, longest stretch in quite a while according to her. 07/25/2024 Pericardial effusion (ICD-10 - I31.39) 09/02/2024 Major depressive disorder, recurrent, moderate (ICD-10 [...] and trialing multiple medications with limited success. 09/02/2024 PTSD (post-traumatic stress disorder) (ICD-10 - [...] trialing multiple medications with limited success. 07/01/2024 PTSD (post-traumatic stress disorder) (ICD-10 - F43.10) Client with increase in depression. Is agreeable to increase in medications to see if helpful as this combination has been the most effective for her symptoms. Has remained sober per her report, longest stretch in quite a while according to her. 01/07/2025 CHEPE (generalized anxiety disorder) (ICD-10 - F41.1) Client states she still feels good on current tx plan and needs no changes. 02/19/2025 Osteoarthritis (ICD-10 - M19.90) 11/12/2024 PTSD (post-traumatic stress disorder) (ICD-10 - F43.10) Client referra l for case management services sent per client's request. No changes to treatment plan as client has had positive response to Trintellex. 12/30/2024 CHEPE (generalized anxiety disorder) (ICD-10 - F41.1) 06/14/2024 Nicotine dependence, unspecified, uncomplicated (ICD-10 - F17.200) 03/18/2025 CHEPE (generalized anxiety disorder) (ICD-10 - F41.1) Client states she has been more depressed lately, isolating and doing less things. She is interested in a trial of dose increase in Trintellex as she has not had side effects but has had good response. Will increase to 20 mg after discussing risk versus benefit. 01/03/2025 Chronic fatigue (ICD-10 - R53.82) 03/10/2025 CHEPE (generalized anxiety disorder) (ICD-10 - F41.1) 03/17/2025 GERD without esophagitis (ICD-10 - K21.9) 09/02/2024 Amphetamine addiction (ICD-10 - F15.20) Telephone [...] trialing multiple medications with limited success. 11/12/2024 CHEPE (generalized anxiety disorder) (ICD-10 - F41.1) Client referral for case management services sent per client's request. No changes to treatment plan as client has had positive response to Trintellex. 01/03/2025 Breast cancer screening (ICD-10 - Z12.39) 07/01/2024 CHEPE (generalized anxiety disorder) (ICD-10 - F41.1) Client with increase in depression. Is agreeable to increase in medications to see if helpful as this combination has been the most effective for her symptoms. Has remained sober per her report, longest stretch in quite a while according to her. 09/02/2024 Cocaine dependence with or without physiological [...] trialing multiple medications with limited success. 01/03/2025 Abdominal aortic aneurysm (AAA) without rupture, unspecified part (ICD-10 - I71.40) 01/03/2025 Hypertension (ICD-10 - I10) 09/02/2024 CHEPE (generalized anxiety disorder) (ICD-10 - [...] trialing multiple medications with limited success. 07/01/2024 Other Discussed sleep hygiene and caffeine intake with encouragement to limit electronic devices an hour before bed and to limit caffeine after 3:00pm. Exercise benefits for mood and health discussed. Psychoeducation regarding psychiatric illness provided. Client was educated about risks and benefits of medication, alternatives to medication, off label uses of medication, suicidal ideation with SSRIs, self-administrat ion and compliance with medication along with how to safely store medication. Verbal informed consent obtained. Client agrees to return sooner if symptoms worsen or if suicidal or homicidal ideations occur. Client has the phone number to the 24-hour crisis line at [facility]. Questions addressed. Client verbalized understanding of [...] uses of medication, suicidal ideation with SSRIs, self-administrat ion and compliance with medication along with how to safely store medication. Verbal informed consent obtained. Client agrees to return sooner if symptoms worsen or if suicidal or homicidal ideations occur. Client has the phone number to the 24-hour crisis line at [facility]. Questions addressed. Client verbalized understanding of [...] uses of medication, suicidal ideation with SSRIs, self-administrat ion and compliance with medication along with how to safely store medication. Verbal informed consent obtained. Client agrees to return sooner if symptoms worsen or if suicidal or homicidal ideations occur. Client has the phone number to the 24-hour crisis line at [facility]. Questions addressed. Client verbalized understanding of [...] uses of medication, suicidal ideation with SSRIs, self-administrat ion and compliance with medication along with how to safely store medication. Verbal informed consent obtained. Client agrees to return sooner if symptoms worsen or if suicidal or homicidal ideations occur. Client has the phone number to the 24-hour crisis line at [facility]. Questions addressed. Client verbalized understanding of all information and is agreeable to treatment plan. Client states she still feels good on current tx plan and needs no changes. 03/18/2025 Other Discussed sleep hygiene and caffeine intake with encouragement to limit electronic devices an hour before bed and to limit caffeine after 3:00pm. Exercise benefits for mood and health discussed. Psychoeducation regarding psychiatric illness provided. Client was educated about risks and benefits of medication, alternatives to medication, off label uses of medication, suicidal ideation with SSRIs, self-administrat ion and compliance with medication along with how to safely store medication. Verbal informed consent obtained. Client agrees to return sooner if symptoms worsen or if suicidal or homicidal ideations occur. Client has the phone number to the 24-hour crisis line at [facility]. Questions addressed. Client verbalized understanding of all information and is agreeable to treatment plan. Client states she has been more depressed lately, isolating and doing less things. She is interested in a trial of dose increase in Trintellex as she has not had side effects but has had good response. Will increase to 20 mg after discussing risk versus benefit. Plan Of Treatment Future Test Test Name Order Date Ultrasound : Abd/Aorta Comp 01/03/2025 Mammogram Breast - Bilateral Screening with ABUS, diagnostic mammogram/ultrasound, and/or biopsy as clinically indicated 01/03/2025 Insurance Providers Payer Name Payer Address Payer Phone Subscriber Number Group Number Insured Name Patient Relationship to Insured Coverage Start Date Coverage End Date [facility] Attn Claims Department [address] [facility] [place] [address] [phone] [id number] Nohelia Cyr Self - patient is the insured 3 5 [employer] [address] [place] [address] [id number] Nohelia Cyr Self - patient is the insured 5 [employer] [address] [place] [address] [id number] Nohelia Cyr Self - patient is the insured 5 [facility] Appsembler [facility] [address] [place] [address] [id number] Nohelia Cyr Self - patient is the insured 1 3 [facility] Telehealth [address] [place] [address] [id number] Nohelia Cyr Self - patient is the insured 1 3 [facility] [employer] Attn Claims Department [address] [place] [address] [id number] Nohelia Cyr Self - patient is the insured 3 5 [employer] Tele[employer] Attn Claims Department [address] [place] [address] [id number] Nohelia Cyr Self - patient is the insured 5 5 Medical (General) History Medical History History ICD Code Broken collar bone 01/2021 Pneumonia 11/07/2019 COPD GERD HTN Stomach ulcers neuropathy sciatica Sleep apnea recent () [facility] Stomach aneurysm Surgical History Surgery Date(Month/Year) right ankle surgery partial hysterectomy Shoulder surgery 03/2025 Hospitalization History Reason Date(Month/Year) COPD flare up 12/2022 Hospitalization r/t PNA, [facility] 12/2021 Recent hospitalization 9 day stay [facility] [place] [facility] [place]
[2025-04-08 15:02] LABS: Hematocrit 43.0 % (37.0-47.0); Hemoglobin 13.3 g/dL (12.0-15.0); Immature Granulocyte Percent A 0.3 % (0-0.5); Lymphocytes Absolute Auto 1.64 K/mm3 (0.9-3.2); Mean Corpuscular HGB Conc 30.9 g/dl (32-36); Mean Corpuscular Hemoglobin 25.1 pg (26-34); Mean Corpuscular Volume 81.3 fl (80-100); Nucleated Red Blood Cells Absolute Auto 0.000 K/mm3 (0.0-0.012); Nucleated Red Blood Cells Perc 0.0 % (0.0-0.2); Platelet Count Result 385 k/mm3 (150-375); Red Blood Count 5.29 M/mm3 (4.2-5.4); White Blood Count 6.9 K/mm3 (4.5-10.0)
[2025-04-08 15:11] LABS: Alanine Aminotransferase 14 U/L (6-35); Albumin Level 4.2 g/dL (3.5-5.1); Alkaline Phosphatase 89 U/L (38-126); Anion Gap 8 mmol/L (4-12); Aspartate Amino Transferase 21 U/L (14-36); Bilirubin,Total 0.6 mg/dL (0.2-1.3); Blood Urea Nitrogen 13 mg/dL (7-17); Calcium 9.4 mg/dL (8.4-10.2); Carbon Dioxide 24 mmol/L (22-30); Chloride 105 mmol/L (98-107); Estimated CRCL calculation 67 ml/min; Estimated Glomerular Filt Rate 60; Glucose 97 mg/dL (65-110); Lipase 70 U/L (23-300); Potassium 4.4 mmol/L (3.4-5.0); Sodium 137 mmol/L (137-145); Total Protein 7.6 g/dL (6.3-8.2)
[2025-04-08 15:22] LABS: Troponin I < 0.012 ng/mL (0.000-0.034)
[2025-04-08 15:25] LABS: INR 0.9; Prothrombin Time 12.4 Seconds (11.1-14.7)
[2025-04-08 15:26] LABS: Partial Thromboplastin Time 31.4 Seconds (22.3-36.8)
--- OUTSIDE RECORDS SUMMARY | 2025-04-08 15:54 | XMS_ITS | Clinical Summary ---
Author Organization [facility] Address [address] [place] [address] Care Team Providers Care Fluorescent Lighting Model Maker Name Role Phone Sean Lee MD Unavailable [phone] Myron Ruelas MD Unavailable [phone] Estiven Alvarado MD Primary Care Provider [phone] Allergies No known active allergies Medications Symbicort [...] (04/03/2024): Added automatically from request for surgery [id number] Added automatically from request for surgery [id number] Gastroesophageal reflux disease without esophagi tis 11/28/2017 Irritable bowel syndrome with diarrhea 8 Back pain 11/27/2017 Cannabis abuse 11/27/2017 Cocaine abuse 11/27/2017 Major depressive disorder 11/27/2017 Encounters Date Type Department Care Team Description 03/14/2025 Telephone [facility] [address] [place] [address] Rolo Sifuentes 01/20/2025 Telephone [facility] Orthopedics and Sports Medicine [address] [facility] [address] [place] [address] Ozzy Waller MD from Last 3 Months Immunizations Immunization Administration Dates Next Due Influenza, Quadrivalent, Spl it, Preservative Free, Intramuscular 08/16/2021 Tdap 05/08/2021 Surgical History Surgery Date Site/Laterality Comments MI REPAIR FIRST ABDOMINAL WA LL HERNIA Ventral Hernia Repair - (Added by TW Conv) MI LIG/TRNSXJ FLP TUBE ABDL/ VAG APPR UNI/BI Tubal Ligation - (Added by Conv) MI TOTAL ABDOMINAL HYSTERECT W/WO RMVL TUBE OVARY [...] on file 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 MD: 02:34 PM 02:34 PM [facility] [EOD] Narrative 02/20/2014 2:38 PM [...] Xavier M.D. MD: 02:34 PM 02:34 PM [facility] [EOD] Rosemarie Matt Robbin DO IMG MAMMO PROCEDURES F inal Result from Last 3 Months or Most Recently Relevant to Health Maintenance Insurance [facility] [address] [place] [address] Advance Directives For more information, please contact: [phone] * Full Code (Latest Code Status on File) Date Activated Date Inactivated Comments 12/13/2021 9:52 AM 12/13/2021 6:25 PM * Full Code Date Activated Date Inactivated Comments 08/11/2021 6:32 PM 08/19/2021 1:49 AM Care Teams Fluorescent Lighting Model Maker Relationship Specialty Start Date End Date Estiven Alvarado MD [address] [place] [address] [place] [address] PCP - General Internal Medicine 02/22/24 Sean Lee MD 6 [facility] [address] [place] [address] Consulting Physician Pulmonary Disease 08/18/21 Myron Ruelas MD 6 [facility] [address] [place] [address] Consulting Physician Pulmonary Disease 12/13/21
--- OUTSIDE RECORDS SUMMARY | 2025-04-08 15:54 | XMS_ITS | Clinical Summary ---
Author Organization [facility] Address [address] [place] [address] Care Team Providers Care Education Technician Name Role Phone ArtemioLeela barton KAT Primary Care Provider [phone] Allergies No known active allergies Active Problems Problem Noted Date Diagnosed Date Lumbar radiculopathy 09/11/2018 Overview (09/11/2018): Added automatically from request for surgery [id number] Family History Medical History Relation Comments Lung [...] Comments Blood Pressure 114/83 09/28/2023 5:00 AM DRILL PRESSER Pulse 111 09/28/2023 5:00 AM DRILL PRESSER Temperature 36.9 C (98.5 F) 09/28/2023 2:21 AM DRILL PRESSER Respiratory Rate 20 09/28/2023 2:21 AM DRILL PRESSER Oxygen Saturation 93% 09/28/2023 5:00 AM DRILL PRESSER Inhaled Oxygen Concentration - - Weight 90.7 kg (200 lb) 09/28/2023 2:32 AM DRILL PRESSER Height 162.6 cm (5' 4) 09/28/2023 2:32 AM DRILL PRESSER Body Mass Index 34.33 09/28/2023 2:32 AM DRILL PRESSER Plan of Treatment Health Maintenance Due Date [...] to complete this topic Insurance Care Teams Education Technician Relationship Specialty Start Date End Date Leela Sewell NP PCP - General 09/30/15
--- OUTSIDE RECORDS SUMMARY | 2025-04-08 15:54 | XMS_ITS | Referral Summary ---
Author Organization [facility] Address [address] [place] [address] Care Team Providers Care Etl Database Developer Name Role Phone Sean Lee MD Unavailable [phone] Myron Ruelas MD Unavailable [phone] Estiven Alvarado MD Primary Care Provider Encounters Date Type Department Care Team Description 03/14/2025 Telephone [facility] [address] [place] [address] Rolo Sifuentes 01/20/2025 Telephone [facility] Orthopedics and Sports Medicine 4 [facility] [address] [place] [address] Ozzy Waller MD from Last [...] (04/03/2024): Added automatically from request for surgery [id number] Added automatically from request for surgery [id number] Gastroesophageal reflux disease without esophagi tis 11/28/2017 [...] on file 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 MD: 02:34 PM 02:34 PM [facility] [EOD] Narrative 02/20/2014 2:38 PM [...] Xavier M.D. MD: 02:34 PM 02:34 PM [facility] [EOD] Rosemarie Siegel DO IMG MAMMO PROCEDURES F inal Result from Last 3 Months or Most Recently Relevant to Health Maintenance Insurance [facility] Advance Directives For more information, please contact: [phone] * Full Code (Latest Code Status on File) Date Activated Date Inactivated Comments 12/13/2021 9:52 AM 12/13/2021 6:25 PM * Full Code Date Activated Date Inactivated Comments 08/11/2021 6:32 PM 08/19/2021 1:49 AM Care Teams Etl Database Developer Relationship Specialty Start Date End Date Estiven Alvarado MD [address] [place] [address] PCP - General Internal Medicine 02/22/24 Sean Lee MD 6 [facility] [address], [address] [place], [place] [id number] Consulting Physician Pulmonary Disease 08/18/21 Myron Ruelas MD 6 [facility] [address] [place] [address] Consulting Physician Pulmonary Disease 12/13/21
--- OUTSIDE RECORDS SUMMARY | 2025-04-08 15:54 | XMS_ITS | Continuity of Care Document ---
Author Organization [facility] Address [address] [facility] [address] [place] [address] Phone Care Team Providers Care Cuff Setter Lockstitch Name Role Phone Cameron Houser MD, FACS Unavailable Unavailab le Advance Directives Directive Yes / No Effective Date File Name No Information Encounters Encounter Description Practice Location Reason(s) For Visit Diagnoses Date Provider Providers Copied on Encounter [facility], [address] [facility] [address], [place], [place], [id number], [place] tel:[phone] SEC Analilia Harrington No Information 0 Corrina Barnes. [address], [address], [place], [place], [id number], [place]. tel:[phone] Family History Family Member Type Diagnosis Age At Onset No Information Payers Payer name Insurance type Covered alliance party ID Authoriza tion(s) Medicaid [facility] [id number] Social History Type Description Quantity Date Captured [...]
--- NOTE | 2025-04-08 16:25 | ED_ITS ---
HPI - SOB/Dyspnea General Chief Complaint: Chest Pain Stated Complaint: congestion for >1 month, CP Time Seen by Provider: 04/08/25 15:24 History of Present Illness HPI Narrative: 60-year-old female with a past medical history including COPD, polysubstance abuse, hypertension, bipolar depression, fibromyalgia, ALVARO. Patient presents to the emergency department for chronic dyspnea and congestion. She states she has been on multiple rounds of antibiotics and steroids and intermittently gets relief of her symptoms. She states she ran out of her medications for this and feels like her symptoms have returned. Has seen her primary care provider and facilities operations technician for this and reports history of emphysema/COPD. Intermittent chest discomfort as well that is left-sided for the last few months. Denies any fever, chills, abdominal pain, back pain, diarrhea constipation. Related Data Home Medications ?Medication ?Instructions ?Recorded ?Confirmed ?Last Taken ?Type famotidine 20 mg tablet 20 mg PO BID 01/02/23 08/30/24 07/16/24 History tizanidine 4 mg tablet 4 mg PO Q8H PRN Muscle Spasm 01/02/23 08/30/24 07/16/24 History budesonide-formoterol HFA 160 2 inh inhalation BID 09/12/23 08/30/24 07/16/24 History mcg-4.5 mcg/actuation aerosol inhaler (Symbicort) lisinopril 10 mg tablet 10 mg PO DAILY 09/12/23 08/30/24 07/16/24 History omeprazole 20 mg capsule,delayed 20 mg PO DAILY 09/12/23 08/30/24 07/16/24 History release brexpiprazole 0.25 mg tablet 0.25 mg PO DAILY 06/17/24 08/30/24 07/16/24 History (Rexulti) bupropion HCl 150 mg tablet,12 hr 150 mg PO DAILY 06/17/24 08/30/24 07/16/24 History sustained-release hydroxyzine pamoate 25 mg capsule 25 mg PO DAILY 06/17/24 08/30/24 07/20/24 History ferrous sulfate 325 mg (65 mg 325 mg PO DAILY 07/20/24 08/30/24 07/16/24 History iron) tablet (FeroSul) Allergies Allergy/AdvReac Type Severity Reaction Status Date / Time No Known Allergies Allergy Unknown Verified 04/08/25 15:30 Review of Systems 2 Review of Systems: As reviewed above in [facility] Past Medical History Medical History Chronic recurrent major depressive disorder Nicotine dependence, cigarettes, with other nicotine-induced disorders History of COPD History of substance abuse History of hypertension Spinal stenosis Fibromyalgia Diverticulitis Tobacco dependence Chronic obstructive pulmonary disease Bipolar disorder Anxiety Depression Surgical History Surgical History History of ankle surgery History of partial hysterectomy Family History Family History Father Acute myocardial infarction Congestive heart failure Hypertension Prostate carcinoma Sibling Chronic obstructive pulmonary disease Cerebrovascular accident Social History Social History Social History: Surrogate medical decision maker: Charito Fish, daughter. Code status: Full code. Smoking packs per day: 0.5 Smoking cigarettes per day: 10.0 Years smoked: 40 Smoking pack-years: 20.00 Smoking status: Current every day smoker Tobacco type: cigarettes Second hand tobacco smoke exposure: No Alcohol intake: current Drinks per week: 1 Substance use: current Substance use type: crack/cocaine and methamphetamine Last use: 09/10/23 Do You Feel Safe in your Home?: Yes Lack of Transportation: YES Lack of Food: Sometimes True Current Housing: I Have Housing Concerned About Future Housing: No Difficulty Paying Gas/Electric Bills: No Difficulty Paying for Meds: No Currently Unemployed: No Education: High School Diploma/GED Difficulty w/ Childcare or Family Care: No Spiritual care concerns: No Exam 2 Narrative: GENERAL: [Well-appearing, well-nourished, and in no acute distress.] HEAD: [Normocephalic, atraumatic.] EYES: [PERRLA and EOMI.] ENT: Nares clear, no rhinorrhea or epistaxis. Mucous membranes moist. NECK: Supple. CHEST: End-expiratory wheezes throughout but no inspiratory stridor or tachypnea, no respiratory distress and she is phonating appropriately with clear concise sentences without any difficulty breathing or retractions. HEART: [Regular rate and rhythm]. No murmur heard. [Normal peripheral pulses.] ABDOMEN: [Soft, nondistended], [nontender], [No rigidity or guarding] EXTREMITIES: Normal range of motion. [No edema.] SKIN: Warm, dry, no rash. NEURO: [No focal deficits]. Alert and oriented [x3.] PSYCH: [Normal mood and affect.] Course Vital Signs Vital signs: Vital Signs Temperature 36.3 C L 04/08/25 14:45 Pulse Rate 107 H 04/08/25 14:45 Respiratory Rate 14 04/08/25 14:45 Blood Pressure 145/88 H 04/08/25 14:45 Pulse Oximetry 97 04/08/25 14:45 Temperature 36.4 C 04/08/25 15:21 Pulse Rate 89 04/08/25 21:36 Respiratory Rate 16 04/08/25 21:36 Blood Pressure 123/82 04/08/25 21:36 Pulse Oximetry 98 04/08/25 21:36 Oxygen Delivery Room Air 04/08/25 18:20 MDM - SOB/Dyspnea MDM Narrative Medical decision making narrative: 60-year-old female with a past medical history including COPD, polysubstance abuse, hypertension, bipolar depression, fibromyalgia, ALVARO. Patient presents to the emergency department for chronic dyspnea and congestion. She states she has been on multiple rounds of antibiotics and steroids and intermittently gets relief of her symptoms. She states she ran out of her medications for this and feels like her symptoms have returned. Has seen her primary care provider and facilities operations technician for this and reports history of emphysema/COPD. Intermittent chest discomfort as well that is left-sided for the last few months. Denies any fever, chills, abdominal pain, back pain, diarrhea constipation. Patient's clinical exam shows some end-expiratory wheezes on auscultation but no respiratory distress otherwise. Mild tachycardia, no fever or hypoxia normal blood pressures with stable hypertension. Suspicion presently is for bronchitis, bronchiolitis, pneumonia, COPD/emphysema exacerbation, less likely cardiac in nature or thromboembolic disease. Low Wells criteria. Cardiac workup was ordered including CBC, CMP, BNP, dimer and troponin levels. Chest x- ray and EKG were ordered and she was given breathing treatments, magnesium, Solu-Medrol in a fluid bolus and re-evaluated. Chest x-ray shows no findings in the chest with clear lungs without any consolidation or pleural effusion. Lab showed no leukocytosis or anemia. Unremarkable platelets. Normal coagulation panel. Normal electrolytes, normal renal function, normal LFTs. Normal creatinine. Negative initial troponin, negative 3 hour troponin, negative BNP. Negative D-dimer. Negative lipase. Chest x-ray normal. Patient re-evaluated and she had minimal improvement after nebulization treatments and treatment of her COPD. Decision was made to order a CT contrast of the thorax for further evaluation of any other potential etiologies. The CT shows her thoracic aortic aneurysm at 4.7 cm. Previously was 4.[address] scan in 06/28/2024 and thus stable. Trace pericardial effusion which is also seen on her previous echocardiogram. Atelectasis in her left middle lung also unchanged from baseline. Distended gallbladder with no stones. Hypodensity liver with follow-up recommended. Patient has an unremarkable workup here, negative troponin serially, EKG without any findings multiple times, CT scan without any acute concerning findings. Stable vital signs. Ultimately she can be safely discharged home at this time given unremarkable findings and can follow up with regular doctors about her your visit and potential other workups for symptomatology. Patient comfortable with the plan and safely discharged. Medical Records Attestation: I reviewed the patient's medical records. Lab Data Attestation: I reviewed the patient's lab results. 04/08/25 14:51 04/08/25 14:51 Labs: Lab Results 04/08/25 04/08/25 04/08/25 Range/Units 14:50 14:51 17:25 WBC 6.9 (4.5-10.0) K/mm3 RBC 5.29 (4.2-5.4) M/mm3 Hgb 13.3 (12.0-15.0) g/dL Hct 43.0 (37.0-47.0) % MCV 81.3 (80-100) fl MCH 25.1 L (26-34) pg MCHC 30.9 L (32-36) g/dl RDW 13.1 (11.5-14.5) % Plt Count 385 H (150-375) k/mm3 MPV 9.1 (7.4-10.4) fl Immature Gran % (Auto) 0.3 (0-0.5) % Neut % (Auto) 67.5 (45.5-73.1) % Lymph % (Auto) 23.8 (18.3-44.2) % [place] % (Auto) 7.1 (2.6-8.5) % Eos % (Auto) 0.7 (0-4.4) % Baso % (Auto) 0.6 (0.2-1.2) % Lymph # (Auto) 1.64 (0.9-3.2) K/mm3 [place] # (Auto) 0.5 (0.1-0.6) K/mm3 Eos # (Auto) 0.1 (0-0.3) K/mm3 Baso # (Auto) 0.0 (0.0-0.1) K/mm3 Abs Immat Gran (auto) 0.02 (0.00-0.031) K/mm3 Absolute Neuts (auto) 4.7 (1.3-6.7) K/mm3 Absolute Nucleated RBC 0.000 (0.0-0.012) K/mm3 Nucleated RBC % 0.0 (0.0-0.2) % PT 12.4 (11.1-14.7) Seconds INR 0.9 APTT 31.4 (22.3-36.8) Seconds D-Dimer 0.31 (<0.48) ug/mL Sodium 137 (137-145) mmol/L Potassium 4.4 (3.4-5.0) mmol/L Chloride 105 (98-107) mmol/L Carbon Dioxide 24 (22-30) mmol/L Anion Gap 8 (4-12) mmol/L BUN 13 D (7-17) mg/dL Creatinine 0.94 (0.7-1.0) mg/dL Estim Creat Clear Calc 67 ml/min Estimated GFR 60 (59 - ) Glucose 97 (65-110) mg/dL Calcium 9.4 (8.4-10.2) mg/dL Total Bilirubin 0.6 (0.2-1.3) mg/dL AST 21 (14-36) U/L ALT 14 (6-35) U/L Alkaline Phosphatase 89 (38-126) U/L Troponin I < 0.012 < 0.012 (0.000-0.034) ng/mL NT-Pro-B Natriuret Pep 23 (19.9-100) pg/mL Total Protein 7.6 (6.3-8.2) g/dL Albumin 4.2 (3.5-5.1) g/dL Lipase 70 (23-300) U/L 04/08/25 Range/Units 20:41 WBC (4.5-10.0) K/mm3 RBC (4.2-5.4) M/mm3 Hgb (12.0-15.0) g/dL Hct (37.0-47.0) % MCV (80-100) fl MCH (26-34) pg MCHC (32-36) g/dl RDW (11.5-14.5) % Plt Count (150-375) k/mm3 MPV (7.4-10.4) fl Immature Gran % (Auto) (0-0.5) % Neut % (Auto) (45.5-73.1) % Lymph % (Auto) (18.3-44.2) % [place] % (Auto) (2.6-8.5) % Eos % (Auto) (0-4.4) % Baso % (Auto) (0.2-1.2) % Lymph # (Auto) (0.9-3.2) K/mm3 [place] # (Auto) (0.1-0.6) K/mm3 Eos # (Auto) (0-0.3) K/mm3 Baso # (Auto) (0.0-0.1) K/mm3 Abs Immat Gran (auto) (0.00-0.031) K/mm3 Absolute Neuts (auto) (1.3-6.7) K/mm3 Absolute Nucleated RBC (0.0-0.012) K/mm3 Nucleated RBC % (0.0-0.2) % PT (11.1-14.7) Seconds INR APTT (22.3-36.8) Seconds D-Dimer (<0.48) ug/mL Sodium (137-145) mmol/L Potassium (3.4-5.0) mmol/L Chloride (98-107) mmol/L Carbon Dioxide (22-30) mmol/L Anion Gap (4-12) mmol/L BUN (7-17) mg/dL Creatinine (0.7-1.0) mg/dL Estim Creat Clear Calc ml/min Estimated GFR (59 - ) Glucose (65-110) mg/dL Calcium (8.4-10.2) mg/dL Total Bilirubin (0.2-1.3) mg/dL AST (14-36) U/L ALT (6-35) U/L Alkaline Phosphatase (38-126) U/L Troponin I < 0.012 (0.000-0.034) ng/mL NT-Pro-B Natriuret Pep (19.9-100) pg/mL Total Protein (6.3-8.2) g/dL Albumin (3.5-5.1) g/dL Lipase (23-300) U/L Imaging Data Attestation: I personally reviewed and interpreted this imaging study as follows: My impression: Impressions Chest X-Ray 04/08/25 15:12 Impression: Normal chest. Chest CT 04/08/25 20:03 IMPRESSION: Ascending aorta is slightly larger than the previous study measuring 4.7 cm. Trace of pericardial effusion with thickened interventricular septum. Echocardiography advised. Atelectatic changes in the middle lobe unchanged. Distended gallbladder with no stones. Hypodensity in the liver. Follow-up advised. Critical Care Time Critical Care Time Critical Care Time: Yes Total Critical Care Time: 35 Discharge Plan Discharge Clinical Impression: COPD exacerbation, Emphysema of lung, Chest pain, Thoracic aortic aneurysm Patient Disposition: Home Condition: Stable Instructions: Antibiotic Form, Chest Pain (DC), Shortness of Breath (ED) Additional Instructions: You had a very extensive workup done here today in the emergency department including multiple laboratory studies, multiple imaging studies and CT scans, EKGs. No identifiable causes to your symptoms but also no emergent or urgent concerns were identified. Your cardiac enzymes were undetectable multiple times, no signs of a blood clot, no acute changes to your known aortic aneurysm and no signs of pneumonia or infection. Ultimately you can follow-up with your regular doctor and facilities operations technician on outpatient basis. Follow-up with your specialist by your aneurysm. If you exhibit any worsening symptoms, worsening shortness of breath, chest pain, inability to tolerate oral intake, dehydration or any other concerns return to the emergency department otherwise follow-up outpatient. Patient Language: Montene[place]in Prescriptions: No Action Rexulti 0.25 mg tablet 0.25 mg PO DAILY bupropion HCl 150 mg tablet sustained-release 12 hr 150 mg PO DAILY hydroxyzine pamoate 25 mg capsule 25 mg PO DAILY albuterol sulfate 2.5 mg /3 mL (0.083 %) solution for nebulization 2.5 mg inhalation Q4-6H PRN (Reason: shortness of breath or wheezing) Qty: 360 3RF eszopiclone [Lunesta] 2 mg tablet 2 mg PO ONCE Qty: 1 0RF Rx Instructions: Take 1 tablet with you to sleep lab on the night of sleep study. tiotropium bromide [Spiriva with HandiHaler] 18 mcg capsule, w/inhalation device 1 cap inhalation DAILY 30 Days Qty: 30 5RF Rx Instructions: puncture 1 cap using device; one cap = 2 inhalations tizanidine 4 mg tablet 4 mg PO Q8H PRN (Reason: Muscle Spasm) famotidine 20 mg tablet 20 mg PO BID lisinopril 10 mg tablet 10 mg PO DAILY omeprazole 20 mg capsule,delayed release(DR/EC) 20 mg PO DAILY budesonide-formoterol [Symbicort] 160-4.5 mcg/actuation HFA aerosol inhaler 2 inh INHALATION BID albuterol sulfate 90 mcg/actuation HFA aerosol inhaler 2 puff INHALATION QID PRN (Reason: shortness of breath or wheezing) Qty: 8 0RF ferrous sulfate [FeroSul] 325 mg (65 mg iron) tablet 325 mg PO DAILY doxycycline hyclate 100 mg tablet 100 mg PO DAILY Qty: 7 0RF amoxicillin-pot clavulanate 875-125 mg tablet 1 tablet PO Q12H 10 Days Qty: 20 0RF prednisone 10 mg tablet See Rx Instructions PO DAILY Qty: 34 0RF Rx Instructions: 4 tabs daily x 4 days; then 3 tabs daily x 3 days, then 2 tabs daily x 3 days, then 1 tab daily x 3 days. Follow-up/Referrals: Estiven Alvarado MD [Primary Care Provider] - Time of Disposition: 21:12
[2025-04-08] MEDS: IPRATROPIUM BR 0.02% INH SOLN 0.5 MG/2.5 ML VIAL 1 MG INHALATION (16:43)
[2025-04-08] MEDS: ALBUTEROL SULFATE NEB 2.5 MG/3 ML INH 10 MG INHALATION (16:43)
[2025-04-08 16:52] LABS: NT Pro B Type Natriuretic Pept 23 pg/mL (19.9-100)
--- NOTE | 2025-04-08 17:38 | ECG_ITS ---
Test Date: 2025-04-08 17:44:22 Measurements Intervals [place] Rate: 100 P: 42 NH: 170 QRS: 4 QRSD: 85 T: 52 QT: 340 QTc: 440 Interpretive Statements SINUS TACHYCARDIA ABNORMAL RHYTHM ECG Compared to ECG 04/08/2025 14:51:26 No significant changes Electronically Signed On 04-08-2025 18:15:05 CDT by Malka Figueredo
[2025-04-08] MEDS: MAGNESIUM SULF 2 GM/WATER 50ML 2 GM/50 ML BAG IVPB (17:44)
[2025-04-08 17:58] LABS: Troponin I < 0.012 ng/mL (0.000-0.034)
[2025-04-08] MEDS: LACTATED RINGERS 1,000 ML 999 ML IV CONT (18:16)
--- NOTE | 2025-04-08 18:48 | ECG_ITS ---
Test Date: 2025-04-08 18:56:57 Measurements Intervals [place] Rate: 92 P: 52 MN: 193 QRS: 9 QRSD: 87 T: 58 QT: 364 QTc: 451 Interpretive Statements SINUS RHYTHM NORMAL ELECTROCARDIOGRAM Compared to ECG 04/08/2025 17:44:22 Sinus tachycardia no longer present Electronically Signed On 04-09-2025 12:33:23 CDT by Sudeep Porras M.D.
--- NOTE | 2025-04-08 19:15 | PC.NURSE ---
Report given to Daly LANDAVERDE all questions answered
--- NOTE | 2025-04-08 20:55 | ECG_ITS ---
Test Date: 2025-04-08 21:01:22 Measurements Intervals [place] Rate: 85 P: 45 RI: 193 QRS: 2 QRSD: 92 T: 48 QT: 380 QTc: 453 Interpretive Statements SINUS RHYTHM NORMAL ELECTROCARDIOGRAM Compared to ECG 04/08/2025 18:56:57 No significant changes Electronically Signed On 04-09-2025 12:42:45 CDT by Sudeep Porras M.D.
[2025-04-08 21:13] LABS: Troponin I < 0.012 ng/mL (0.000-0.034)
== END 2025-04-08 21:37 | disposition home or self-care (01) ==
PROVIDERS: Emergency Medicine; Emergency Provider Student in an Organized Health Care Education/Training Program; PCP Internal Medicine
DX: J44.1 Chronic obstructive pulmonary disease with (acute) exacerbation (principal); J43.9 Emphysema, unspecified; I71.20 Thoracic aortic aneurysm, without rupture, unspecified; R07.9 Chest pain, unspecified; I10 Essential (primary) hypertension; G47.33 Obstructive sleep apnea (adult) (pediatric); M79.7 Fibromyalgia; F31.9 Bipolar disorder, unspecified; F41.9 Anxiety disorder, unspecified; F17.210 Nicotine dependence, cigarettes, uncomplicated; Z90.710 Acquired absence of both cervix and uterus; K82.8 Other specified diseases of gallbladder; R93.2 Abnormal findings on diagnostic imaging of liver and biliary tract; Z79.899 Other long term (current) drug therapy; R00.0 Tachycardia, unspecified
CPT/HCPCS: 36415; 71046; 71260; 80053; 83690; 83880; 84484; 85025; 85380; 85610; 85730; 93005; 94640; 96365; 96375; 99284; J2919; J3475; J7120; Q9967

== ENCOUNTER 2025-06-16 15:27 | Outpatient (CLI) | payer OTHER, SELFPAY ==
--- NOTE | ~2025-06-16 | MM_ITS ---
EXAMINATION: MM screening [facility] BI w ketty HISTORY: Screening TECHNIQUE: Craniocaudal and mediolateral oblique 3-D tomosynthesis images were obtained and synthetic 2-D images were generated. CAD analysis was submitted and interpreted. COMPARISON: None available BREAST PARENCHYMAL COMPOSITION: The breasts are almost entirely fatty. FINDINGS: There is no evidence of suspicious mass, calcification, or architectural distortion to suggest malignancy in either breast. Scattered benign-appearing calcifications are present. IMPRESSION: 1. No mammographic evidence of malignancy. 2. Recommend routine screening mammography in one year. BI-RADS Category 2: Benign finding(s). Reviewed, dictated and finalized at location C.
--- OUTSIDE RECORDS SUMMARY | 2025-06-16 15:31 | XMS_ITS | Clinical Summary ---
Author Organization [facility] Address [address] [place] [address] Care Team Providers Care Commissioned Security Officer Name Role Phone Sean Lee MD Unavailable [phone] Mryon Ruelas MD Unavailable [phone] Estiven Alvarado MD Primary Care Provider [phone] Allergies No known active allergies Medications Symbicort [...] (04/03/2024): Added automatically from request for surgery [id number] Added automatically from request for surgery [id number] Gastroesophageal reflux disease without esophagi tis 11/28/2017 Irritable bowel syndrome with diarrhea 8 Back pain 11/27/2017 Cannabis abuse 11/27/2017 Cocaine abuse 11/27/2017 Major depressive disorder 11/27/2017 Immunizations Immunization Administration Dates Next Due Influenza, Quadrivalent, Spl it, Preservative Free, Intramuscular 08/16/2021 Tdap 05/08/2021 Surgical History Surgery Date Site/Laterality Comments OK REPAIR FIRST ABDOMINAL WA LL HERNIA Ventral Hernia Repair - (Added by TW Conv) OK LIG/TRNSXJ FLP TUBE ABDL/ VAG APPR UNI/BI Tubal Ligation - (Added by TW Conv) OK TOTAL ABDOMINAL HYSTERECT W/WO RMVL TUBE OVARY Total Abdominal Hysterectomy - (Added by TW Conv) Medical History Medical History Date Comments Depression Anxiety PTSD (post-traumatic stress disorder) COPD (chronic obstructive pu lmonary disease) Polysubstance abuse 2019 Quit early 2 021; has been clean since that time Nicotine [...] on file Legal Sex 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 MD: 02:34 PM 02:34 PM [facility] [EOD] Narrative 02/20/2014 2:38 PM [...] ELECTRONICALLY VERIFIED REPORT 02/20/2014 2:34 PM: Mohamud Xavier, M.D. Mohamud Xavier M.D. MD: 02:34 PM 02:34 PM [facility] [EOD] Rosemarie Siegel DO IMG MAMMO PROCEDURES F inal Result from Last 3 Months or Most Recently Relevant to Health Maintenance Insurance [facility] Advance Directives For more information, please contact: [phone] * Full Code (Latest Code Status on File) Date Activated Date Inactivated Comments 12/13/2021 9:52 AM 12/13/2021 6:25 PM * Full Code Date Activated Date Inactivated Comments 08/11/2021 6:32 PM 08/19/2021 1:49 AM Care Teams Commissioned Security Officer Relationship Specialty Start Date End Date Estiven Alvarado MD [address] [facility] [address] PCP - General Internal Medicine 02/22/24 Sean Lee MD Consulting Physician Pulmonary Disease 08/18/21 Myron Ruelas MD [address] [address] [place] [address] Consulting Physician Pulmonary Disease 12/13/21
--- OUTSIDE RECORDS SUMMARY | 2025-06-16 15:31 | XMS_ITS | Clinical Summary ---
Author Organization [facility] Address [address] [place] [address] Care Team Providers Care Fence Erector Supervisor Name Role Phone Leela Sewell KAT Primary Care Provider [phone] Allergies No known active allergies Active Problems Problem Noted Date Diagnosed Date Lumbar radiculopathy 09/11/2018 Overview (09/11/2018): Added automatically from request for surgery [id number] Family History Medical History Relation Comments Lung [...] Comments Blood Pressure 114/83 09/28/2023 5:00 AM STOCK MANAGER Pulse 111 09/28/2023 5:00 AM STOCK MANAGER Temperature 36.9 C (98.5 F) 09/28/2023 2:21 AM STOCK MANAGER Respiratory Rate 20 09/28/2023 2:21 AM STOCK MANAGER Oxygen Saturation 93% 09/28/2023 5:00 AM STOCK MANAGER Inhaled Oxygen Concentration - - Weight 90.7 kg (200 lb) 09/28/2023 2:32 AM STOCK MANAGER Height 162.6 cm (5' 4) 09/28/2023 2:32 AM STOCK MANAGER Body Mass Index 34.33 09/28/2023 2:32 AM STOCK MANAGER Plan of Treatment Health Maintenance Due Date [...] PCV) 08/05/2016 08/05/2015 COVID-19 Vaccine (2 - 2024-2 6 season) 2025 04/23/2021 DTaP, Tdap and Td Vaccines ( [...] to complete this topic Insurance Care Teams Fence Erector Supervisor Relationship Specialty Start Date End Date Leela Sewell NP PCP - General 09/30/15
--- OUTSIDE RECORDS SUMMARY | 2025-06-16 15:31 | XMS_ITS | Patient Health Record ---
Author Organization [facility] Address [address] [place] [address] Care Team Providers Care Metal Die Finisher Name Role Phone Estiven Alvarado Primary Care Provider [phone] Sam Hernandez Unavailable [phone] Rosemarie Sanchez Unavailable [phone] Allergies No Known Allergies Reason For Referral Reason Case management - cl ient is requesting a case management social worker (to be put on list if she qualifies). Diagnosis 1 Major depressive dis order, recurrent, moderate (F33.1) Diagnosis 2 PTSD (post-traumatic stress disorder) (F43.10) Referral Organization [facility] Referring Provider First Name Sam Referring Provider Last Name David Referring Provider Speciality Psychiatry Referred Provider Specialty [facility]al [facility] Clinical Notes Rosemarie Sanchez 01:32:51 PM > Call to client re: referral, LVM requesting call back.Daniel Michelle R 12/02/2024 10:53:53 AM >Call to client, client states unable to talk at this moment and to call back another time., Rosemarie Sanchez 12/03/2024 10:07:01 AM >Call to client, no answer. Will send letter regarding referral.Daniel Michelle R 12/06/2024 12:01:30 PM > Spoke with client to gather information for referral to case management program. See encounter for more information. Referral Priority Routine Reason PT FOR GAIT, OT FOR ADL'S, RN FOR LABILE BP Diagnosis 1 Osteoarthritis (M19. 90) Referral Organization [facility] Referring Provider First Name Estiven Referring Provider Last Name Christiano Referring Provider Speciality Internal M edicine Referred Provider Specialty Home Health Care General Notes Corie Reaves 10:37:38 AM > Referral sent with attachments. Letter mailed.Alverto Shansha M 03/14/2025 11:36:12 AM > Attempted to contact patient in regards to referral. No answer, left message, Tati Dodge 03/24/2025 01:23:57 PM > See TE., Tati Dodge 03/24/2025 01:28:36 PM > Successfully resent referral order and information to below provider., Loree Del Toro 04/30/2025 09:28:56 AM > Faxed to new location Clinical Notes [facility], [address] [place] [address], [address] , [place] [address], , Referral Priority Routine Medications Medication SIG (Take, Route, Frequency, Duration) Notes Start Date End Date Status Cyanocobalamin 1000 MCG two tablets Orally Once a day 11/04/2022 Active Pantoprazole Sodium 40 MG 1 tablet 1/2 to 1 hour before morning meal Orally Once a day; Duration: 30 day(s) Active Symbicort 160-4.5 MCG/ACT 2 puffs Inhalation Twice a day Active Albuterol Sulfate (2.5 MG/3ML) 0.083% 3 mL as needed Inhalation every 6 hrs; Duration: 30 days 06/19/2024 Active Budesonide-Formoterol Fumarate 160-4.5 MCG/ACT 2 puffs Inhalation every 12 hours; Duration: 30 days Active Metoprolol Succinate ER 50 MG 1 tablet Orally Once a day; Duration: 30 days 01/03/2025 Active Folic Acid 1 MG 1 tablet Orally Once a day Active tiZANidine HCl 4 MG 1 tablet as needed Orally Three times a day; Duration: 30 days Active Spiriva HandiHaler 18 MCG 1 capsule by inhaling the contents of the capsule using the HandiHaler device Inhalation Once a day Active Trintellix 20 MG 1 tablet Orally Once a day; Duration: 30 days Client would like mailed to her new residence: [address], [address] 09/02/2024 Active Ventolin HFA 108 (90 Base) MCG/ACT 2 puffs as needed Inhalation every 4 hrs Active hydrOXYzine Pamoate 25 MG 1 capsule Orally twice a day; Duration: 30 days Client would like mailed to her new residence: [address] [place] [address], [address] 10/05/2023 Active Rollator Ultra-Light - USE AMBULATING EXTERNALLY DAILY 01/30/2023 Active Fluticasone Propionate 50 MCG/ACT 2 sprays in each nostril Nasally Once a day Not-Taking Montelukast Sodium 10 MG 1 tablet Orally Once a day; Duration: 30 day(s) 02/19/2025 Active Cetirizine HCl 10 MG 1 tablet Orally Once a day; Duration: 30 day(s) Active Social History Tobacco Use: Social History [...] 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 Stress is when someone feels tense, nervous, anxious, or can\t sleep at night because their mind is troubled Somewhat In the past year have you sp ent more than 2 nights in a row in a fpc, mcfp, fci center, or juvenile correctional facility? No Do [...] W/U Status Risk Notes Problem Tobacco user (638999155) Nicotine dependence, unspecified, uncomplicated (F17.200) Active confirmed Problem Moderate recurrent major depression (26975125) Major depressive disorder, recurrent, moderate (F33.1) Active confirmed Problem Hypertension (29568174) Hypertension (I10) Active confirmed Problem Osteoarthritis (946146123) Osteoarthritis (M19.90) Active confirmed Problem Posttraumatic stress disorder (68492909) PTSD (post-traumatic stress disorder) (F43.10) Active confirmed Problem COPD - Chronic obstructive pulmonary disease (55426925) COPD (chronic obstructive pulmonary disease) (J44.9) Active confirmed Problem Generalized anxiety disorder (43425450) CHEPE (generalized anxiety disorder) (F41.1) Active confirmed Problem Acute exacerbation of chronic obstructive airways disease (941026781) COPD exacerbation (J44.1) Active confirmed Problem Sciatica (53071388) Sciatica (M54.30) Active co nfirmed Problem Overweight (984551184) Over weight (E66.3) Active confirmed Problem Chronic fatigue syndrome (59006002) Chronic fatigue (R53.82) Active confirmed Problem Severe recurrent major depression without psychotic features (10931564) Major depressive disorder, recurrent episode, severe (F33.2) Active confirmed Problem Obstructive sleep apnea syndrome (13222352) ALVARO (obstructive sleep apnea) (G47.33) Active confirmed Problem Gastroesophageal reflux disease (772712682) GERD without esophagitis (K21.9) Active confirmed Problem Chronic rhinitis (60668562) Chronic rhinitis, unspecified type (J31.0) Active confirmed Problem Obesity (668529908) Obesity, unspecified classification, unspecified obesity type, unspecified whether serious comorbidity present (E66.9) Active confirmed Problem Stimulant dependence (096418328) 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) Active confirmed Problem Cocaine dependence (51353644) Cocaine dependence with or without physiological dependence (F14.20) Active confirmed Problem Abdominal aortic aneurysm without rupture (disorder) (84905186) Abdominal aortic aneurysm (AAA) without rupture, unspecified part (I71.40) Active confirmed Vital Signs Heart Rate 100 /min 06/16/2025 Temperature 97.9 degrees Fahrenheit 06/16/2025 Respiratory Rate 20 /min 06/16/2025 Oximetry 98 % 06/16/2025 Blood pressure diastolic 80 mm Hg 06/16/2025 Height 63.5 in 06/16/2025 Blood pressure systolic 132 mm Hg 06/16/2025 Weight 231.4 lbs 06/16/2025 BMI 40.34 kg/m2 06/16/2025 Encounters Encounter Location Date Provider Diagnosis [facility] [address] [place] [address] [place] [address] 06/16/2025 Estiven Alvarado Chronic fatigue R53. 82 ; ALVARO (obstructive sleep apnea) G47.33 ; Chronic rhinitis, unspecified type J31.0 ; GERD without esophagitis K21.9 ; Over weight E66.3 ; Osteoarthritis M19.90 ; Lipid screening Z13.220 ; Screening for diabetes mellitus Z13.1 and Colon cancer screening Z12.[address] [place] [address] 07/01/2024 Sam Hernandez Major depressive disorder, recurrent, moderate F33.1 ; PTSD (post-traumatic stress disorder) F43.10 and CHEPE (generalized anxiety disorder) F41.[address] [place] [address] 09/02/2024 Sam Hernandez Major depressive disorder, recurrent, moderate F33.1 ; PTSD (post-traumatic stress disorder) F43.10 ; Amphetamine addiction F15.20 ; Cocaine dependence with or without physiological dependence F14.20 and CHEPE (generalized anxiety disorder) F41.[address] [address] 11/12/2024 Sam Hernandez Major depressive disorder, recurrent, moderate F33.1 ; PTSD (post-traumatic stress disorder) F43.10 and CHEPE (generalized anxiety disorder) F41.[address] [address] 12/06/2024 Rosemarie Sanchez Major depressive disorder, recurrent, moderate F33.1 [facility] [address] [facility] [place] [address] 01/03/2025 Estiven Alvarado Vitamin B12 deficien cy E53.8 ; COPD (chronic obstructive pulmonary disease) J44.9 ; Chronic fatigue R53.82 ; Breast cancer screening Z12.39 ; Abdominal aortic aneurysm (AAA) without rupture, unspecified part I71.40 and Hypertension I10 [address] [address] 01/07/2025 Sam Hernandez Major depressive disorder, recurrent, moderate F33.1 ; PTSD (post-traumatic stress disorder) F43.10 and CHEPE (generalized anxiety disorder) F41.[address] [address] 02/19/2025 Estiven Alvarado Chronic rhinitis, unspecified type J31.0 ; GERD without esophagitis K21.9 and Osteoarthritis M19.[address] [address] 03/18/2025 Sam Hernandez Major depressive disorder, recurrent, moderate F33.1 and CHEPE (generalized anxiety disorder) F41.[address] [address] 04/28/2025 Sam Hernandez Major depressive disorder, recurrent, moderate F33.1 and CHEPE (generalized anxiety disorder) F41.[address] [address] 06/18/2024 Estiven Alvarado [address] [address] 07/11/2024 Estiven Alvarado [address] [address] 07/25/2024 Estiven Alvarado Pericardial effusion I31.[address] [address] 08/15/2024 Estiven Alvarado [address] [address] 08/27/2024 Sam Hernandez [address] [address] 09/02/2024 Sam Hernandez [address] [address] 09/23/2024 Sam Hernandez [facility] [address] [place] [address] 10/24/2024 Estiven Alvarado [address] [address] 11/04/2024 Estiven Alvarado [address] [address] 12/03/2024 Estiven Alvarado [address] [address] 12/30/2024 Sam Hernandez [address] [address] 12/30/2024 Sam Hernandez Major depressive disorder, recurrent, moderate F33.1 and CHEPE (generalized anxiety disorder) F41.1 [facility] [address] [place] [address] 01/13/2025 Sam Hernandez [address] [address] 01/30/2025 Estiven Alvarado [address] [address] 02/05/2025 Estiven Alvarado [address] [place] [address] 02/21/2025 Estiven Alvarado [address] [place] [address] 03/07/2025 Estiven Alvarado [address] [place] [address] 03/10/2025 Sam Hernandez Major depressive disorder, recurrent, moderate F33.1 and CHEPE (generalized anxiety disorder) F41.[address] [facility] [place] [address] 03/17/2025 Estiven Alvarado Chronic rhinitis, unspecified type J31.0 and GERD without esophagitis K21.9 [facility] [address] [place] [address] 03/24/2025 Estiven Alvarado [facility] [address] [place] [address] 04/14/2025 Sam Hernandez [address] [place] [address] 04/14/2025 Estiven Alvarado GERD without esophagitis K21.9 and Chronic rhinitis, unspecified type J31.0 [facility] [address] [place] [address] 04/25/2025 Estiven Alvarado Assessments Encounter Date Diagnosis (ICD Code) Assessment Notes Treatment Notes Treatment Clinical Notes Section Notes 02/19/2025 Chronic rhinitis, unspecified type (ICD-10 - [...] 20 mg after discussing risk versus benefit. 04/14/2025 GERD without esophagitis (ICD-10 - K21.9) 04/28/2025 Major depressive disorder, recurrent, moderate (ICD-10 - F33.1) Overall, client with improved depression/anxi ety symptoms since Trintellex dose increased. No treatment plan changes needed at this time. 12/06/2024 Major depressive disorder, recurrent, moderate (ICD-10 [...] current tx plan and needs no changes. 06/16/2025 Chronic fatigue (ICD-10 - R53.82) 06/16/2025 ALVARO (obstructive sleep apnea) (ICD-10 - G47.33) 07/01/2024 Major depressive disorder, recurrent, moderate (ICD-10 [...] in quite a while according to her. 06/16/2025 Chronic rhinitis, unspecified type (ICD-10 - J31.0) 01/07/2025 CHEPE (generalized anxiety disorder) (ICD-10 - [...] CHEPE (generalized anxiety disorder) (ICD-10 - F41.1) 04/28/2025 CHEPE (generalized anxiety disorder) (ICD-10 - F41.1) Overall, client with improved depression/anxi ety symptoms since Trintellex dose increased. No treatment plan changes needed at this time. 04/14/2025 Chronic rhinitis, unspecified type (ICD-10 - J31.0) 03/18/2025 CHEPE (generalized anxiety disorder) (ICD-10 - [...] 01/03/2025 Breast cancer screening (ICD-10 - Z12.39) 06/16/2025 GERD without esophagitis (ICD-10 - K21.9) 07/01/2024 CHEPE (generalized anxiety disorder) (ICD-10 - F41.1) Client with increase in depression. Is agreeable to increase in medications to see if helpful as this combination has been the most effective for her symptoms. Has remained sober per her report, longest stretch in quite a while according to her. 06/16/2025 Over weight (ICD-10 - E66.3) 09/02/2024 Cocaine dependence with or without physiological [...] without rupture, unspecified part (ICD-10 - I71.40) 06/16/2025 Osteoarthritis (ICD-10 - M19.90) 01/03/2025 Hypertension (ICD-10 - I10) 09/02/2024 CHEPE [...] and trialing multiple medications with limited success. 06/16/2025 Lipid screening (ICD-10 - Z13.220) 06/16/2025 Screening for diabetes mellitus (ICD-10 - Z13.1) 06/16/2025 Colon cancer screening (ICD-10 - Z12.11) 09/02/2024 Other Discussed sleep hygiene and caffeine [...] number to the 24-hour crisis line at [facility]. Questions addressed. Client verbalized understanding of [...] and trialing multiple medications with limited success. 01/07/2025 Other Discussed sleep hygiene and caffeine [...] number to the 24-hour crisis line at [facility]. Questions addressed. Client verbalized understanding of all information and is agreeable to treatment plan. Client states she still feels good on current tx plan and needs no changes. 04/28/2025 Other Discussed sleep hygiene and caffeine intake [...] number to the 24-hour crisis line at [facility]. Questions addressed. Client verbalized understanding of all information and is agreeable to treatment plan. Overall, client with improved depression/anxi ety symptoms since Trintellex dose increased. No treatment plan changes needed at this time. 07/01/2024 Other Discussed sleep hygiene and caffeine [...] number to the 24-hour crisis line at [facility]. Questions addressed. Client verbalized understanding of all information and is agreeable to treatment plan. Client with increase in depression. Is agreeable to increase in medications to see if helpful as this combination has been the most effective for her symptoms. Has remained sober per her report, longest stretch in quite a while according to her. 12/06/2024 Other Clinician spoke with client via [...] and completed referral process on client's behalf. 03/18/2025 Other Discussed sleep hygiene and caffeine [...] number to the 24-hour crisis line at [facility]. Questions addressed. Client verbalized understanding of all information and is agreeable to treatment plan. Client states she has been more depressed lately, isolating and doing less things. She is interested in a trial of dose increase in Trintellex as she has not had side effects but has had good response. Will increase to 20 mg after discussing risk versus benefit. 11/12/2024 Other Discussed sleep hygiene and caffeine [...] number to the 24-hour crisis line at [facility]. Questions addressed. Client verbalized understanding of all information and is agreeable to treatment plan. Client referral for case management services sent per client's request. No changes to treatment plan as client has had positive response to Trintellex. 06/16/2025 Other HAS MAMMOGRAM SCHEDULED FOR LATER TODAY Plan Of Treatment Future Test Test Name Order Date Ultrasound : Abd/Aorta Comp 01/03/2025 Mammogram Breast - Bilateral Screening with ABUS, diagnostic mammogram/ultrasound, and/or biopsy as clinically indicated 01/03/2025 Occult Blood, [place], [place] ([id number]) 025 Hemoglobin A1c* 06/16/2025 CBC With Differential/Platelet* 06/16/20 25 Lipid Panel* 06/16/2025 CMP 14 Comprehensive Metabolic Panel* TSH Rfx on Abnormal to Free T4 5 Insurance Providers Payer Name Payer Address Payer Phone Subscriber Number Group Number Insured Name Patient Relationship to Insured Coverage Start Date Coverage End Date [facility] Claims Department [address] [place] [address] [phone] [id number] Nohelia Cyr Self - patient is the insured 3 5 [address] [place] [address] [id number] Nohelia Cyr Self - patient is the insured 5 MEDICAID [address] [place] [address] [id number] Nohelia Cyr Self - patient is the insured 5 [facility] [id number] [facility] [address] [place] [address] [phone] [id number] Nohelia Cyr Self - patient is the insured 1 3 [employer] [address] [place] [address] [id number] Nohelia Cyr Self - patient is the insured 1 3 [employer] Attn Claims Department [address] [place] [address] [phone] [id number] Nohelia Cyr Self - patient is the insured 3 5 [employer] Attn Claims Department [address] [place] [address] [phone] [id number] Nohelia Cyr Self - patient is the [...] ers 12/2021 Recent hospitalization 9 day stay [facility]
== END 2025-06-16 15:28 | disposition home or self-care (01) ==
LOC: ANHFOHIMG 15:29
PROVIDERS: PCP Internal Medicine; Visit Provider Internal Medicine
DX: Z12.31 Encounter for screening mammogram for malignant neoplasm of breast (principal)
CPT/HCPCS: 77063; 77067